=== PATIENT | female | born 1985 | race Caucasian/White ===

== ENCOUNTER 2017-07-01 15:42 | Emergency (ER) | payer OTHER ==
[~2017-07-01 15:42] MED LIST: HYDR200T42 PO; METH2.5 PO
--- NOTE | 2017-07-01 16:44 | PD ---
HPI Chief Complaint Headaches Date Seen: Jul 01, 2017 Travel History International Travel<30 Days: No Contact w/Intl Traveler<30Days: No History of Present Illness HPI Ms. Levy is a 31 y/o at 18 weeks gestation (LMP in February per patient) presenting to the [facility] with the CC of headaches. She reports that she has been having 10/10 intermittent headaches over the last week. Currently she states that the headache is 1/10. She also endorses visual changes with "light corrales and floaters." She also has been more fatigued lately and sleeping "all the time." Finally she endorses shortness of breath increased from her baseline and while at rest since finding out she was .. Patient was recently seen at [facility] in [place] on Thursday morning for back pain and nausea/ vomiting. At that time she had a ultrasound completed showing she was 18 weeks and 1 day . Patient states that she is unaware of her LMP, but believes it could have been in January. She has been previously seen by an DRAINAGE ENGINEER, but has been accepted for Medicaid and has an appointment with [facility] on July 13. Of note the patient has a past medical history significant for lupus and absence seizure disorder, however has not been on medical therapy for over 8 months due to financial constraints. 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 per nursing staff Obstetric History Obstetric History Past Surgical History Surgical History: No Previous Surgery Family History Narrative Family History Endorses no significant family medical history Social History Narrative Social History Tobacco - currently smoking 1 cigarette per day, previously smoking 1 pack per day Alcohol - denies alcohol history Illicit drug use - denies illicit drug use history Allergies-Medications (Allergen,Severity, Reaction): Coded Allergies: Sulfa (Sulfonamide Antibiotics) (Unverified Allergy, Unknown, 05/26/17) Home Meds Reported Medications Hydroxychloroquine Sulfate (Plaquenil) 200 Mg Tab, 200 MG PO DAILY, TAB 05/24/15 Methotrexate (Rheumatrex) 2.5 Mg Tab, 2.5 MG PO EVERY OTHER DAY, TAB 05/24/15 Review of Systems Except as stated in HPI: all other systems reviewed are Neg Physical Exam Narrative GENERAL: Well-nourished, well-developed patient. SKIN: Warm and dry. HEAD: Normocephalic and atraumatic. EYES: No scleral icterus. No injection or drainage. ENT: No nasal drainage noted. Mucous membranes pink. Airway patent. NECK: Supple, trachea midline. No JVD. CARDIOVASCULAR: Regular rate and rhythm without murmurs, gallops, or rubs. RESPIRATORY: Mild wheezing at the bases bilaterally with prolonged expiration. No CR. ABDOMEN/GI: Abdomen soft, non-tender, bowel sounds present, no rebound, no guarding : Cervix: Posterior Dilation: Closed Effacement: 0% Membranes: Intact FHT's: 140s EXTREMITIES: No cyanosis or edema. BACK: Nontender without obvious deformity. No CVA tenderness. NEUROLOGICAL: Awake and alert. Motor and sensory grossly within normal limits. Five out of 5 muscle strength in all muscle groups. Normal speech. Data Data Vital Signs Reviewed: Yes [facility] Medical Record Reviewed: Yes Plan Ms. Levy is a 31 y/o at 18 weeks gestation presenting to the [facility] with the CC of headaches. 1. IUP at 18 weeks -Continue routine antepartum care -Encourage vitamin -Encourage oral hydration -UA dipstick: Negative 2. Headaches with visual disturbances -Prescribe Fioricet to be used as needed. -UDS: Pending Discharge: Patient to be discharged home in stable condition. Patient encouraged to follow up with OBGYN, Rheumatology, and Neurology. Encouraged PO hydration, Fioricet as needed, and rest. Patient agrees with medical plan and all questions where answered. SDW: Dr. Davis Diagnosis Diagnosis: Primary Impression: 18 weeks gestation of Additional Impressions: Headache SLE (systemic lupus erythematosus) Disposition: DISCHARGE HOME Condition: Stable Scripts Arhygsdtth-Hoyctvvmgcurj-Xydkwscz (Fioricet) 50-300-40 Mg Cap 1-2 CAP PO Q6H Y for HEADACHE, #30 CAP 0 Refills Prov: Yaya Grey MD R2 07/01/17 Patient Instructions: Having Your Baby: The Labor Process (GEN), General Instructions Yaya Grey MD R2 Jul 01, 2017 16:44
[2017-07-01] MEDS ORDERED: BUTA1CAP PO (17:40)
[2017-07-01 18:56] LABS: BLOOD, URINE NEG (NEG); COMMENT (UR) CULT NOT INDICATED; CULTURE IF INDICATED CULT NOT INDICATED; GLUCOSE,URINE NEG (NEG); KETONE, URINE NEG (NEG); NITRITE,URINE NEG (NEG); PH, URINE 7.5 (5.0-8.5); SQUAMOUS EPITHELIAL CELL URINE 1 /hpf (0-5); URINE COLOR YELLOW (YELLW/STRAW)
[2017-07-06 08:36] LABS: BATH SALTS (MDPV) UR NEG (NEG); ECSTASY (MDMA) UR NEG (NEG); HEROIN (6-ACETYLMORPHINE) UR NEG (NEG); K2 SPICE UR NEG (NEG); OBMETHADONE UR NEG (NEG); PHENCYCLIDINE URINE NEG (NEG)
[2017-07-06 08:37] LABS: GABAPENTIN UR NEG (NEG); HYDROMORPHONE U NEG (NEG)
[2017-07-13] MEDS ORDERED: PREN1CAP7 PO (14:03)
[2017-07-13] MEDS ORDERED: LEVE250 PO (14:40)
[2017-07-13] MEDS ORDERED: FOLI800T PO (14:42)
[2017-07-28] MEDS ORDERED: AZIT250T3 PO (12:31)
== END 2017-07-01 18:17 | disposition home or self-care (01) ==
LOC: HOBED 15:42
DX: O26.892 Other specified pregnancy related conditions, second trimester (principal); R51 Headache; R06.02 Shortness of breath; O99.332 Smoking (tobacco) complicating pregnancy, second trimester; F17.210 Nicotine dependence, cigarettes, uncomplicated; O99.89 Other specified diseases and conditions complicating pregnancy, childbirth and the puerperium; M32.9 Systemic lupus erythematosus, unspecified; Z3A.18 18 weeks gestation of pregnancy; Z79.899 Other long term (current) drug therapy
CPT/HCPCS: 80307; 81001; 99283; G0481

== ENCOUNTER → 2017-08-12 | Outpatient (CLI) | payer OTHER ==
[~2017-08-12] MED LIST changes: +FOLI800T PO; -HYDR200T42 PO; +LEVE250 PO; -METH2.5 PO; +PREN1CAP7 PO
== END ==
LOC: HPND 10:55
PROVIDERS: ATTEND Obstetrics & Gynecology
DX: O35.2XX0 Maternal care for (suspected) hereditary disease in fetus, not applicable or unspecified (principal); O99.352 Diseases of the nervous system complicating pregnancy, second trimester; O99.332 Smoking (tobacco) complicating pregnancy, second trimester; O99.89 Other specified diseases and conditions complicating pregnancy, childbirth and the puerperium; R56.9 Unspecified convulsions; O09.32 Supervision of pregnancy with insufficient antenatal care, second trimester
CPT/HCPCS: 76811; 76825; 76827; 93325

== ENCOUNTER 2017-08-24 11:49 | Emergency (ER) | payer OTHER ==
[2017-08-24] VITALS (7 sets, daily range): BP systolic 91–137; BP diastolic 54–84; PULSE 82–100; RESP 18–23; TEMP 98.3–98.4; O2SAT 99–100
[~2017-08-24] VITALS: Ht 167.6 cm; Wt 63.0 kg
[2017-08-24] MEDS ORDERED: FOLI400T PO (12:21)
[2017-08-24] MEDS ORDERED: ASPI-516 CHEW (12:22)
[2017-08-24] MEDS ORDERED: FERR325T18 PO (12:22)
[2017-08-24] MEDS ORDERED: SODIUM CHLORIDE 0.9% FLUSH 10 ML FLUSH IVF PRN (13:15)
[2017-08-24 13:58] LABS: AUTOMATED NEUTROPHIL # 7.7 TH/MM3 (1.8-7.7); BASOPHIL # 0.1 TH/MM3 (0-0.2); BASOPHIL % 0.8 % (0.0-2.0); EOSINOPHIL # 0.3 TH/MM3 (0-0.4); EOSINOPHIL % 3.1 % (0.0-4.0); HEMATOCRIT 33.7 % (35.0-46.0); HEMO FLAGS DIFF FINAL; LYMPH % 20.8 % (9.0-44.0); LYMPHOCYTE # 2.3 TH/MM3 (1.0-4.8); MEAN CELL VOLUME 93.4 FL (80.0-100.0); MEAN CORPUSCULAR HEMOGLOBIN 32.1 PG (27.0-34.0); MEAN CORPUSCULAR HGB CONC 34.4 % (32.0-36.0); MONO % 5.7 % (0.0-8.0); NEUT % 69.6 % (16.0-70.0); PLATELET COUNT 239 TH/MM3 (150-450); RED CELL DISTRIBUTION WIDTH 13.4 % (11.6-17.2); WHITE BLOOD COUNT 11.1 TH/MM3 (4.0-11.0)
[2017-08-24 14:13] LABS: BACTERIA, URINE OCC /hpf; BLOOD, URINE NEG (NEG); COMMENT (UR) CULT NOT INDICATED; CULTURE IF INDICATED CULT NOT INDICATED; GLUCOSE,URINE NEG (NEG); KETONE, URINE NEG (NEG); MUCUS URINE FEW /lpf (OCC); NITRITE,URINE NEG (NEG); SQUAMOUS EPITHELIAL CELL URINE 2 /hpf (0-5); URINE COLOR YELLOW (YELLW/STRAW)
--- NOTE | 2017-08-24 14:17 | PD ---
HPI Chief Complaint: Respiratory Symptoms Time Seen by Provider: 13:24 Travel History International Travel<30 days: No Contact w/Intl Traveler<30days: No Traveled to known affect area: No History of Present Illness HPI Patient is a 31 year old female at 27 weeks gestation with PMH of seizure disorder and SLE who presents with 1 month history of cough. She has had associated congestion, post nasal drainage, subjective fevers, chills, night sweats, nausea, vomiting, diarrhea, muscle and joint aches, headache, shortness of breath, and RUQ abdominal pain. She states that her symptoms have progressively worsened. Cough is worse at night and she feels as if she is choking on post nasal drainage. Her bindery worker prescribed a z-pack about 1 week ago which provided no relief. Over the past few days she has noticed right sided sharp, 10/10 non-radiating pain. She has taken Tylenol without relief. Pain worsens with deep breaths, movement, and cough. Patient also notes a cold sore which she tends to get prior to an SLE flair. She denies pain, edema, numbness or tingling in her extremities, neck pain. Patient takes Keppra for seizures. Last SLE flair 7-8months ago. Cholecystectomy at age 22. Modifying Factors: Worse with deep breaths Associated Signs & Symptoms: Coughing, right sided chest pains, shortness of breath, right upper quadrant, pain Risk Factors: Status post cholecystectomy, rheumatoid arthritis, currently PFSH Past Medical History Cardiovascular Problems: Yes (HTN) Diminished Hearing: No Hypertension: Yes Medical other: Yes (LUPUS) Seizures: Yes ?: LMP: JANUARY 2017 : 1 Para: 0 Past Surgical History Cholecystectomy: Yes Social History Alcohol Use: No Tobacco Use: Yes Substance Use: No Allergies-Medications (Allergen,Severity, Reaction): Coded Allergies: Sulfa (Sulfonamide Antibiotics) (Unverified Allergy, Unknown, 08/24/17) Reported Meds & Prescriptions Reported Meds & Active Scripts Active Keppra (Levetiracetam) 250 Mg Tab 250 Mg PO BID Citranatal [place] ( W/O Vit A W/ Fe Fumar) 27-1-260 Mg Cap 1 Cap PO DAILY Reported Aspirin 81 Mg Chew 81 Mg CHEW DAILY Ferrous Sulfate 325 Mg (65 Mg Iron) Tablet 325 Mg PO DAILY Folic Acid 0.4 Mg Tab 3 Mg PO DAILY Review of Systems Except as stated in HPI: all other systems reviewed are Neg Physical Exam Narrative GENERAL: Well-developed, Well-nourished young white female patient currently and moderate distress. Alert. Lying in bed. Cries when discusses length of symptoms SKIN: Warm and dry. HEAD: Atraumatic. Normocephalic. EYES: Pupils equal and round. No scleral icterus. No injection or drainage. ENT: No nasal bleeding or discharge. Mucous membranes pink and moist. Cold sore on right upper lip. NECK: Trachea midline. No JVD. CARDIOVASCULAR: Regular rate and rhythm. RESPIRATORY: No accessory muscle use. Clear to auscultation. Breath sounds equal bilaterally. GASTROINTESTINAL: Patient appears . Abdomen soft, mildly tender to palpation in RUQ. Hepatic and splenic margins not palpable. MUSCULOSKELETAL: Extremities without clubbing, cyanosis, or edema. No obvious deformities. Right side tender to palpation. NEUROLOGICAL: Awake and alert. No obvious cranial nerve deficits. Motor grossly within normal limits. Five out of 5 muscle strength in the arms and legs. Normal speech. PSYCHIATRIC: Appropriate mood and affect; insight and judgment normal. Data Data Last Documented VS Vital Signs Date Time Temp Pulse Resp B/P (MAP) Pulse Ox O2 Delivery O2 Flow Rate FiO2 08/24/17 17:26 98.3 08/24/17 13:55 100 20 100 Room Air Orders Orders Complete Blood Count With Diff (08/24/17 13:08) Comprehensive Metabolic Panel (08/24/17 13:08) Iv Access Insert/Monitor (08/24/17 13:08) Electrocardiogram (08/24/17 13:08) Ecg Monitoring (08/24/17 13:08) Oximetry (08/24/17 13:08) Oxygen Administration (08/24/17 13:08) Sodium Chloride 0.9% Flush (Ns Flush) (08/24/17 13:15) Blood Culture (08/24/17 13:08) Chest, Single Ap (08/24/17 13:24) Urinalysis - C+S If Indicated (08/24/17 13:27) D-Dimer (08/24/17 14:48) Us Leg Venous Doppler Bilat (08/24/17 16:04) Lung Scan - Perfusion (08/24/17 16:04) Diet Regular Basic (08/24/17 Dinner) Ed Discharge Order (08/24/17 18:36) Labs Laboratory Tests Test 08/24/17 13:35 08/24/17 13:40 08/24/17 15:00 White Blood Count 11.1 TH/MM3 Red Blood Count 3.60 MIL/MM3 Hemoglobin 11.6 GM/DL Hematocrit 33.7 % Mean Corpuscular Volume 93.4 FL Mean Corpuscular Hemoglobin 32.1 PG Mean Corpuscular Hemoglobin Concent 34.4 % Red Cell Distribution Width 13.4 % Platelet Count 239 TH/MM3 Mean Platelet Volume 8.5 FL Neutrophils (%) (Auto) 69.6 % Lymphocytes (%) (Auto) 20.8 % Monocytes (%) (Auto) 5.7 % Eosinophils (%) (Auto) 3.1 % Basophils (%) (Auto) 0.8 % Neutrophils # (Auto) 7.7 TH/MM3 Lymphocytes # (Auto) 2.3 TH/MM3 Monocytes # (Auto) 0.6 TH/MM3 Eosinophils # (Auto) 0.3 TH/MM3 Basophils # (Auto) 0.1 TH/MM3 CBC Comment DIFF FINAL Differential Comment Blood Urea Nitrogen 7 MG/DL Creatinine 0.46 MG/DL Random Glucose 81 MG/DL Total Protein 5.8 GM/DL Albumin 2.5 GM/DL Calcium Level 8.0 MG/DL Alkaline Phosphatase 66 U/L Aspartate Amino Transf (AST/SGOT) 14 U/L Alanine Aminotransferase (ALT/SGPT) 19 U/L Total Bilirubin LESS THAN 0.1 MG/DL Sodium Level 137 MEQ/L Potassium Level 3.8 MEQ/L Chloride Level 108 MEQ/L Carbon Dioxide Level 22.4 MEQ/L Anion Gap 7 MEQ/L Estimat Glomerular Filtration Rate 159 ML/MIN Urine Color YELLOW Urine Turbidity HAZY Urine pH 6.0 Urine Specific [place] 1.025 Urine Protein 30 mg/dL Urine Glucose (UA) NEG mg/dL Urine Ketones NEG mg/dL Urine Occult Blood NEG Urine Nitrite NEG Urine Bilirubin NEG Urine Urobilinogen LESS THAN 2.0 MG/DL Urine Leukocyte Esterase TRACE Urine WBC 2 /hpf Urine Squamous Epithelial Cells 2 /hpf Urine Bacteria OCC /hpf Urine Mucus FEW /lpf Microscopic Urinalysis Comment CULT NOT INDICATED D-Dimer Quantitative (PE/DVT) 1.56 MG/L FEU [facility] Medical Decision Making Medical Screen Exam Complete: Yes Emergency Medical Condition: Yes Medical Record Reviewed: Yes Interpretation(s) Laboratory Tests Test 08/24/17 13:35 08/24/17 13:40 08/24/17 15:00 White Blood Count 11.1 TH/MM3 (4.0-11.0) Red Blood Count 3.60 MIL/MM3 (4.00-5.30) Hematocrit 33.7 % (35.0-46.0) Creatinine 0.46 MG/DL (0.50-1.00) Total Protein 5.8 GM/DL (6.4-8.2) Albumin 2.5 GM/DL (3.4-5.0) Calcium Level 8.0 MG/DL (8.5-10.1) Aspartate Amino Transf (AST/SGOT) 14 U/L (15-37) Total Bilirubin LESS THAN 0.1 MG/DL Chloride Level 108 MEQ/L (98-107) Urine Turbidity HAZY (CLEAR) Urine Protein 30 mg/dL (NEG-TRACE) Urine Leukocyte Esterase TRACE (NEG) Urine Bacteria OCC /hpf (NONE) Urine Mucus FEW /lpf (OCC) D-Dimer Quantitative (PE/DVT) 1.56 MG/L FEU (0.00-0.50) Differential Diagnosis Pneumonia versus costochondritis versus PE versus pleurisy versus cholecystitis versus hepatitis versus hellp syndrome versus UTI versus renal colic Narrative Course Lab work did not show significant amount of blood or significant signs of UTI. Patient is not having urinary symptoms. She has had a cholecystectomy since 22 years old, and abdomen is fairly benign, I'm not suspecting that this is a cholecystitis or other acute intra-abdominal process. Her chest x-ray did not show any signs of pneumonia or obvious acute pulmonary processes. Her d-dimer is quite elevated and a VQ scan was done. Her ultrasound was also done to rule out DVT. Ultrasound and VQ scan did not show any signs of acute PE or DVT. At this point, considering his ongoing symptoms, I suspect that she has some underlying pleurisy or costochondritis from all the coughing she has been doing , seems to be worsening at night according to her and her . She states that she is so tired of it that she wants something for the pain other than Tylenol. My plan would be to give her symptomatically for pain with codeine, have warned her that this is class C, not necessarily the best thing to be taking during . 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 Return for any worsening in pain or new symptoms as needed. The plan has discussed with her and she states understanding. Diagnosis Primary Impression: Right-sided chest wall pain Additional Impression: Additional Instructions: You should not take Tylenol with Codeine with regular Tylenol. Follow-up with your OB for further treatment. Med/Other Pt SpecificInfo: Prescription(s) given Scripts Acetaminophen-Codeine Liq (Tylenol-Codeine Elixir) 120-12 Mg/5 Ml Soln 5 ML PO Q6H Y for PAIN, #60 ML 0 Refills Prov: Eunice Sarmiento MD 08/24/17 Disposition: 01 DISCHARGE HOME Condition: Stable Eunice Sarmiento MD Aug 24, 2017 14:17
[2017-08-24 14:28] LABS: ALKALINE PHOSPHATASE 66 U/L (45-117); ALT (GPT) 19 U/L (10-53); AST (GOT) 14 U/L (15-37); BLOOD UREA NITROGEN 7 MG/DL (7-18); GLOMERULAR FILTRATION RATE 159 ML/MIN (>89); TOTAL BILIRUBIN ADULT LESS THAN 0.1 MG/DL (0.2-1.0)
[2017-08-24 14:29] LABS: ANION GAP 7 MEQ/L (5-15); BICARBONATE 22.4 MEQ/L (21.0-32.0); CHLORIDE 108 MEQ/L (98-107); POTASSIUM 3.8 MEQ/L (3.5-5.1); SODIUM (NA) 137 MEQ/L (136-145)
--- NOTE | 2017-08-24 14:48 | RADRPT ---
EXAM DATE/TIME: 08/24/2017 14:21 [facility] COMPARISON: No previous studies available for comparison. INDICATIONS : Cough, pain under right anterior ribs, short of breath MEDICAL HISTORY : . pleural effusion SURGICAL HISTORY : None. ENCOUNTER: Initial ACUITY: 2 weeks PAIN SCORE: 8/10 LOCATION: Bilateral chest FINDINGS: A single view of the chest demonstrates the lungs to be symmetrically aerated without evidence of mas s, infiltrate or effusion. The cardiomediastinal contours are unremarkable. Osseous structures are intact. CONCLUSION: Normal examination. Jarad Escobedo Jr., MD on August 24, 2017 at 14:46 Board Certified Radiologist. This report was verified electronically.
--- NOTE | 2017-08-24 16:38 | RADRPT ---
EXAM DATE/TIME: 08/24/2017 16:14 [facility] COMPARISON: No previous studies available for comparison. INDICATIONS : Bilateral leg swelling. MEDICAL HISTORY : Seizures. Hypertension. Glasses. Lupus. SURGICAL HISTORY : Cholecystectomy. ENCOUNTER: Initial ACUITY: 2 months PAIN SCORE: 5/10 LOCATION: Bilateral legs. TECHNIQUE: Venous ultrasound of the left and right leg was performed from the inguinal ligament to the proximal calf. Real-time, color Doppler and spectral tracing, compression and augmentation techniques were us ed. FINDINGS: RIGHT LEG: There is normal compressibility of the deep venous system from the inguinal region to the proximal ca lf. No echogenic clot is seen in the lumen of the common femoral, femoral, popliteal, and posterior tibial veins. There is a normal response of the venous system to proximal and distal augmentation an d respiration. LEFT LEG: There is normal compressibility of the deep venous system from the inguinal region to the proximal ca lf. No echogenic clot is seen in the lumen of the common femoral, femoral, popliteal, and posterior tibial veins. There is a normal response of the venous system to proximal and distal augmentation an d respiration. CONCLUSION: Negative for deep venous thrombosis. Ronnie Foley MD FACR on August 24, 2017 at 16:37 Board Certified Radiologist. This report was verified electronically.
--- NOTE | 2017-08-24 18:18 | RADRPT ---
EXAM DATE/TIME: 08/24/2017 16:22 [facility] COMPARISON: CHEST SINGLE AP, August 24, 2017, 14:21. INDICATIONS : Chest pain and dyspnea. 28 weeks . DOSE: 1.0 mCi Tc99m Labeled MAA IV MEDICAL HISTORY : Lupus. Hypertension. SURGICAL HISTORY : Cholecystectomy. ENCOUNTER: Initial ACUITY: 1 day PAIN SCALE: 4/10 LOCATION: Right chest TECHNIQUE: The patient was injected with MAA, and eight-view perfusion scan was performed. FINDINGS: PERFUSION: There is a subsegmental perfusion defect seen at the posterior medial left base. The remaining aspect s of the lungs demonstrate normal perfusion. CONCLUSION: Small subsegmental perfusion defect at the left base. This is a low probability for pulmonary embolus . Faisal Champion MD on August 24, 2017 at 18:11 Board Certified Radiologist. This report was verified electronically.
[2017-08-24] MEDS ORDERED: ACET120S PO (18:44)
--- NOTE | 2017-08-24 20:48 | PD ---
HPI Chief Complaint Shortness of breath, cold sores,malaise Date Seen: Aug 24, 2017 Time Seen: 20:43 Travel History International Travel<30 Days: No Contact w/Intl Traveler<30Days: No Known Affected Area: No History of Present Illness HPI Patient is 31-year-old white female 25 weeks 6 days who presented to the ER with shortness of breath, sores in her mouth history of lupus and the fear that she's having lupus flare, they did an extensive workup ruled out pulmonary embolus DVT and pneumonia all her lab work was normal and I felt it was costochondritis from coughing so much she was given a prescription for Tylenol with Codeine elixir that she would like to have another antibiotic just took a Z -Faizan 3 weeks ago didn't help, heart rate is reactive she's not gutierrez Weeks Gestation: 25 Para: 0 : 1 History Past Medical History Narrative Medical Lupus Social History Alcohol Use: No Tobacco Use: No Substance Abuse: No Allergies-Medications (Allergen,Severity, Reaction): Coded Allergies: Sulfa (Sulfonamide Antibiotics) (Unverified Allergy, Unknown, 08/24/17) Home Meds Active Scripts Acetaminophen-Codeine Liq (Tylenol-Codeine Elixir) 120-12 Mg/5 Ml Soln, 5 ML PO Q6H Y for PAIN, #60 ML 0 Refills Prov:Eunice Sarmiento MD 08/24/17 Levetiracetam (Keppra) 250 Mg Tab, 250 MG PO BID for Control Seizures, #60 TAB 2 Refills Prov:Loc Izaguirre MD 07/13/17 W/O Vit A W/ Fe Fumar (Citranatal [place]) 27-1-260 Mg Cap, 1 CAP PO DAILY for Nutritional Supplement, #30 CAP 10 Refills Prov:Felicity Jhaveri 07/13/17 Reported Medications Aspirin (Aspirin) 81 Mg Chew, 81 MG CHEW DAILY, TAB 0 Refills 08/24/17 Ferrous Sulfate (Ferrous Sulfate) 325 Mg (65 Mg Iron) Tablet, 325 MG PO DAILY for Nutritional Supplement, #30 TAB 0 Refills 08/24/17 Folic Acid (Folic Acid) 0.4 Mg Tab, 3 MG PO DAILY for Nutritional Supplement, TAB 0 Refills 08/24/17 Review of Systems General / Constitutional: No: Fever, Weight Gain, Chills, Other Eyes: No: Diploplia, Blurred Vision, Visual changes, Pain, Photophobia HENT: No: Headaches, Vertigo, Lightheadedness Cardiovascular: Chest Pain or Discomfort, No: Irregular Rhythm, Palpitations, Tachycardia, Syncope, Varicosities, Edema, Cyanosis Respiratory: No: Cough, Short of Breath, Other Gastrointestinal: No: Nausea, Vomiting, Diarrhea Genitourinary: No: Decreased Urinary Output, Oliguria Musculoskeletal: No: Limited ROM, Weakness, Cramping, Edema, Pain Skin: No Rash, No Itching, No Dryness, No Lumps, No Change in Pigmentation, No Change in Nails, No Alopecia, No Lesions Neurologic: No: Weakness, Dizziness, Syncope, Focal Abnormalities, Coordination Problem, Headache, Slurred Speech, Seizures Psychiatric: No: Depression, Suicidal Ideations, Homicidal Ideation Endocrine: No: Heat Intolerance, Cold Intolerance, Polydipsia, Polyuria, Other Physical Exam Vital Signs Date Time Temp Pulse Resp B/P (MAP) Pulse Ox O2 Delivery O2 Flow Rate FiO2 08/24/17 18:41 85 18 137/84 (101) 100 Room Air 08/24/17 17:26 98.3 08/24/17 16:00 82 20 91/54 (66) 99 Room Air 08/24/17 15:00 88 23 116/67 (83) 99 Room Air 08/24/17 13:55 100 20 119/76 (90) 100 Room Air 08/24/17 13:44 99 Room Air 08/24/17 12:01 98.4 93 18 134/75 (94) 99 Narrative GENERAL: Well-nourished, well-developed patient. SKIN: Warm and dry. HEAD: Normocephalic and atraumatic. EYES: No scleral icterus. No injection or drainage. ENT: No nasal drainage noted. Mucous membranes pink. Airway patent. NECK: Supple, trachea midline. No JVD. CARDIOVASCULAR: Regular rate and rhythm without murmurs, gallops, or rubs. RESPIRATORY: Breath sounds equal bilaterally. No accessory muscle use. BREASTS: Bilateral exam showed no masses , no retractions, no nipple discharge. ABDOMEN/GI: Abdomen soft, non-tender, bowel sounds present, no rebound, no guarding Gravid to [25-] weeks size Fundal Height: [-25] GENITOURINARY: External Genitalia: intact and normal in appearance Membranes: [intact ] Uterine Contractions: [none-] FHT's: Category: [1-] Baseline: [-133] Reactive: [-yes] Variability: [mod-] Decels: [0-] EXTREMITIES: No cyanosis or edema. BACK: Nontender without obvious deformity. No CVA tenderness. NEUROLOGICAL: Awake and alert. Motor and sensory grossly within normal limits. Five out of 5 muscle strength in all muscle groups. Normal speech. Data Data Orders Orders Complete Blood Count With Diff (08/24/17 13:08) Comprehensive Metabolic Panel (08/24/17 13:08) Iv Access Insert/Monitor (08/24/17 13:08) Electrocardiogram (08/24/17 13:08) Ecg Monitoring (08/24/17 13:08) Oximetry (08/24/17 13:08) Oxygen Administration (08/24/17 13:08) Sodium Chloride 0.9% Flush (Ns Flush) (08/24/17 13:15) Blood Culture (08/24/17 13:08) Chest, Single Ap (08/24/17 13:24) Urinalysis - C+S If Indicated (08/24/17 13:27) D-Dimer (08/24/17 14:48) Us Leg Venous Doppler Bilat (08/24/17 16:04) Lung Scan - Perfusion (08/24/17 16:04) Diet Regular Basic (08/24/17 Dinner) Ed Discharge Order (08/24/17 18:36) Labs Laboratory Tests Test 08/24/17 13:35 08/24/17 13:40 08/24/17 15:00 White Blood Count 11.1 Red Blood Count 3.60 Hemoglobin 11.6 Hematocrit 33.7 Mean Corpuscular Volume 93.4 Mean Corpuscular Hemoglobin 32.1 Mean Corpuscular Hemoglobin Concent 34.4 Red Cell Distribution Width 13.4 Platelet Count 239 Mean Platelet Volume 8.5 Neutrophils (%) (Auto) 69.6 Lymphocytes (%) (Auto) 20.8 Monocytes (%) (Auto) 5.7 Eosinophils (%) (Auto) 3.1 Basophils (%) (Auto) 0.8 Neutrophils # (Auto) 7.7 Lymphocytes # (Auto) 2.3 Monocytes # (Auto) 0.6 Eosinophils # (Auto) 0.3 Basophils # (Auto) 0.1 CBC Comment DIFF FINAL Differential Comment Blood Urea Nitrogen 7 Creatinine 0.46 Random Glucose 81 Total Protein 5.8 Albumin 2.5 Calcium Level 8.0 Alkaline Phosphatase 66 Aspartate Amino Transf (AST/SGOT) 14 Alanine Aminotransferase (ALT/SGPT) 19 Total Bilirubin LESS THAN 0.1 Sodium Level 137 Potassium Level 3.8 Chloride Level 108 Carbon Dioxide Level 22.4 Anion Gap 7 Estimat Glomerular Filtration Rate 159 Urine Color YELLOW Urine Turbidity HAZY Urine pH 6.0 Urine Specific [place] 1.025 Urine Protein 30 Urine Glucose (UA) NEG Urine Ketones NEG Urine Occult Blood NEG Urine Nitrite NEG Urine Bilirubin NEG Urine Urobilinogen LESS THAN 2.0 Urine Leukocyte Esterase TRACE Urine WBC 2 Urine Squamous Epithelial Cells 2 Urine Bacteria OCC Urine Mucus FEW Microscopic Urinalysis Comment CULT NOT INDICATED D-Dimer Quantitative (PE/DVT) 1.56 Date/Time Source Procedure Growth Status 08/24/17 13:35 Blood Peripheral Aerobic Blood Culture Pending Received 08/24/17 13:35 Blood Peripheral Anaerobic Blood Culture Pending Received MDM Interpretation(s) Patient is a 31-year-old white female at 25-26 weeks who presented with shortness of breath or chest pain discomforts. Workup in ER negative for PE and DVT the negative VQ scan with COSTOCHONDRITIS coughing so much she was given Tylenol with codeine prescription Plan Plan the patient a prescription for ampicillin 500 4 times a day Diagnosis Diagnosis: Primary Impression: Right-sided chest wall pain Additional Impression: Disposition: 01 DISCHARGE HOME Condition: Stable Scripts Acetaminophen-Codeine Liq (Tylenol-Codeine Elixir) 120-12 Mg/5 Ml Soln 5 ML PO Q6H Y for PAIN, #60 ML 0 Refills Prov: Eunice Sarmiento MD 08/24/17 Patient Instructions: General Instructions, (ED), Chest Wall Pain (ED ) Additional Instructions: You should not take Tylenol with Codeine with regular Tylenol. Follow-up with your OB for further treatment. Departure Forms: Tests/Procedures Karl Davis II, MD Aug 24, 2017 20:48
--- NOTE | 2017-08-25 14:30 | EKG ---
Date Performed: 08/24/2017 Time Performed: 13:35:23 PTAGE: 31 years EKG: Sinus rhythm POSSIBLE LEFT ATRIAL ENLARGEMENT BORDERLINE ECG NO PREVIOUS TRACING DOCTOR: Maxwell Prater Interpretating Date/Time 08/25/2017 14:23:12
[2017-08-31] MEDS ORDERED: DOXY10TA PO (15:55)
== END 2017-08-24 21:00 | disposition home or self-care (01) ==
LOC: NEPC 11:49 → HOBED 21:00
DX: O99.89 Other specified diseases and conditions complicating pregnancy, childbirth and the puerperium (principal); R06.02 Shortness of breath; R07.89 Other chest pain; R94.31 Abnormal electrocardiogram [ECG] [EKG]; Z3A.26 26 weeks gestation of pregnancy
CPT/HCPCS: 71010; 78580; 80053; 81001; 85025; 85379; 87040; 93005; 93970; 99284; A9540

== ENCOUNTER 2017-11-08 22:55 | Emergency (ER) | payer OTHER ==
[~2017-11-08] VITALS: Ht 167.6 cm; Wt 62.0 kg
[~2017-11-08 22:55] MED LIST changes: +ACET120S PO; +ASPI-516 CHEW; +CALCCHW3 CHEW; +DOXY10TA PO; +FERR325T18 PO; +FOLI400T PO; -FOLI800T PO; +PROM25TA10 PO
[2017-11-08 22:59] VITALS: BP 176/126; PULSE 132; RESP 16; TEMP 98.3; O2SAT 98
== END 2017-11-08 23:58 | disposition left against medical advice (07) ==
LOC: NED 22:55
DX: R05 Cough (principal)
CPT/HCPCS: 99281

== ENCOUNTER 2017-11-10 04:52 | Inpatient (IN) | payer OTHER ==
[~2017-11-10] VITALS: Ht 167.6 cm; Wt 65.0 kg
[2017-11-10] VITALS (18 sets, daily range): BP systolic 111–137; BP diastolic 69–89; PULSE 78–122; RESP 8–18; TEMP 97.9–98; O2SAT 98–100
--- NOTE | 2017-11-10 06:36 | PD ---
HPI Chief Complaint: Respiratory Symptoms Time Seen by Provider: 05:28 Travel History International Travel<30 days: No Contact w/Intl Traveler<30days: No Traveled to known affect area: No History of Present Illness HPI The patient is a 31 year old female at 34 weeks gestation who presents to the [facility] [address] emergency department with a history of recurrent cough and congestion with shortness of breath that began a week ago. She reports that she had similar symptoms in August and was evaluated in the emergency department for a possible pulmonary embolism. In the end, she reports that she was treated with ampicillin for bronchitis. The patient reports that she was given a refill of this just in case she had a recurrent cough. When she developed a recurrent cough approximately a week ago she took the ampicillin as prescribed, however it has not helped this time. She was seen at [facility] on Thursday and was told that she had lung congestion and should go to the emergency department. The patient's medical history is significant for having systemic lupus erythematosus. The patient reports that she has been barring a friend's inhaler which has been helping somewhat shortness of breath. She reports that her research anthropologist is Dr. Gabriel. She reports that she has been feeling the baby move well. She denies having any abdominal pain. She has had problems with persistent nausea during the , however no recent vomiting. She last had a fever with a MAXIMUM TEMPERATURE of 100.1 yesterday. She reports that she is currently out of her Phenergan for nausea and is requesting a refill. She denies having any vaginal bleeding. The patient reports that her cough is productive of thick brown sputum. The patient reports that she smokes 3-4 cigarettes per day. I review of systems otherwise, the patient denies having any neck pain, diarrhea, urinary symptoms, or neurologic symptoms. The patient describes her chest pain as being on the sides of her chest and worse with coughing. [facility] Past Medical History Narrative Medical The patient's past medical history is significant for systemic lupus, Raynaud's syndrome, seizure disorder, cervical dysplasia. Cardiovascular Problems: Yes (HTN) Diminished Hearing: No Hypertension: Yes Immune Disorder: Yes (LUPUS) Immunizations Current: Yes Seizures: Yes Tetanus Vaccination: < 5 Years Influenza Vaccination: No ?: : 1 Para: 0 Past Surgical History Narrative Surgical The patient's past surgical history is significant for cholecystectomy. Cholecystectomy: Yes Social History Alcohol Use: No Tobacco Use: Yes (1-4 CIGS DAILY) Substance Use: No Allergies-Medications (Allergen,Severity, Reaction): Coded Allergies: Sulfa (Sulfonamide Antibiotics) (Unverified Allergy, Unknown, 11/10/17) Reported Meds & Prescriptions Reported Meds & Active Scripts Active Keppra (Levetiracetam) 250 Mg Tab 250 Mg PO BID Citranatal [place] ( W/O Vit A W/ Fe Fumar) 27-1-260 Mg Cap 1 Cap PO DAILY Reported Aspirin 81 Mg Chew 81 Mg CHEW DAILY Ferrous Sulfate 325 Mg (65 Mg Iron) Tablet 325 Mg PO DAILY Folic Acid 0.4 Mg Tab 3 Mg PO DAILY albuterol rescue inhaler borrowed from a friend Review of Systems Except as stated in HPI: all other systems reviewed are Neg General / Constitutional: No: Fever Eyes: No: Visual changes HENT: No: Headaches Cardiovascular: Positive: Chest Pain or Discomfort, Dyspnea on exertion Respiratory: Positive: Cough, Shortness of Breath, Wheezing Gastrointestinal: Positive: Nausea, No: Vomiting, Abdominal Pain Genitourinary: No: Dysuria Musculoskeletal: No: Pain Skin: No Rash Neurologic: No: Weakness Psychiatric: No: Depression Endocrine: No: Polydipsia Hematologic/Lymphatic: No: Easy Bruising Physical Exam Narrative General: The patient is a well-developed well-nourished. Head and Neck exam: Head is normocephalic atraumatic. Eyes: EOMI, pupils are equal round and reactive to light. Nose: Midline septum with pink mucous membranes Mouth: Dentition unremarkable. Moist mucus membranes. Posterior oropharynx is not erythematous. No tonsillar hypertrophy. Uvula midline. Airway patent. Neck: No palpable lymphadenopathy. No nuchal rigidity. No thyromegaly. Cardiovascular: Sinus tachycardia in the low 100 without murmurs, gallops, or rubs. No pulse deficit to the extremities on simultaneous auscultation and palpation of her radial artery. Lungs: Soft expiratory wheezes audible throughout bilateral lung mccoy, no rhonchi, scattered course airway breath sounds are noted. No crackles. Abdomen: Soft, with distention related to . No tenderness on palpation of her abdomen. The fundus is well above the umbilicus. No palpable contractions. No guarding, rebound, or rigidity. Normal bowel sounds are audible. Extremities: No clubbing, cyanosis, or edema. 2+ pulses in all 4 extremities. No calf tenderness on palpation. Negative Homans sign. No palpable cords. Back: No costovertebral angle tenderness to palpation. Neurologic Exam: Grossly nonfocal. Skin Exam: No rash noted. Intact skin that is warm and dry. Data Data Last Documented VS Vital Signs Date Time Temp Pulse Resp B/P (MAP) Pulse Ox O2 Delivery O2 Flow Rate FiO2 11/10/17 07:19 (101) 98 Room Air 11/10/17 07:19 89 18 11/10/17 04:56 98.0 Orders Orders Complete Blood Count With Diff (11/10/17 06:36) Comprehensive Metabolic Panel (11/10/17 06:36) Blood Culture (11/10/17 06:36) C-Reactive Protein (Crp) (11/10/17 06:36) Urinalysis - C+S If Indicated (11/10/17 06:36) Chest, Single Ap (11/10/17 06:36) Iv Access Insert/Monitor (11/10/17 06:36) Ecg Monitoring (11/10/17 06:36) Oximetry (11/10/17 06:36) Lactic Acid Sepsis Protocol (11/10/17 06:36) Influenzae A/B Antigen (11/10/17 06:38) Ceftriaxone Inj (Rocephin Inj) (11/10/17 07:30) Azithromycin Inj (Zithromax Inj) (11/10/17 07:30) Albuterol-Ipratropium Neb (Duoneb Neb) (11/10/17 07:30) Sodium Chlor 0.9% 1000 Ml Inj (Ns 1000 M (11/10/17 07:30) MDM Medical Decision Making Medical Screen Exam Complete: Yes Emergency Medical Condition: Yes Medical Record Reviewed: Yes Interpretation(s) Last Impressions Chest X-Ray 11/10/1736 Signed Impressions: Service Date/Time: Friday, November 10, 2017 06:44 - CONCLUSION: Right medial lung base opacity as above. Lungs otherwise clear. Faisal Gallo MD Differential Diagnosis Pneumonia, versus bronchitis, versus reactive airway Narrative Course During the course of the patients emergency department visit, the patients history, examination, and differential diagnosis were reviewed with the patient. The patient was placed on a teletypesetter monitor with oximetry and frequent blood pressure monitoring. The patient had IV access obtained and blood work sent for analysis. The patient's electronic medical record was reviewed. The patient did have a VQ scan and ultrasound of her lower extremities done previously when she had similar symptoms to rule out PE and DVT. These were found to be negative for PE and DVT. The patient's symptoms at this time are consistent with bronchitis versus pneumonia. She did agree to have a chest x- ray done with shielding of the . The patient was initially provided Rocephin 1 g IV, Zithromax 500 IV, DuoNeb times once, normal saline 1 L IV fluid bolus. The patients laboratory studies were reviewed and remarkable for a chest x-ray that shows a right medial lung base opacity, lungs are otherwise clear. CBC, CMP, blood cultures, lactic acid are pending at the conclusion of my shift. The patient's case will be checked out to the oncoming emergency physician to disposition the patient based on the conclusion of her workup. Diagnosis Primary Impression: Pneumonia affecting Qualified Codes: O99.513 - Diseases of the respiratory system complicating , third trimester; J18.9 - Pneumonia, unspecified organism Guerline De Paz MD Nov 10, 2017 06:36
--- NOTE | 2017-11-10 07:10 | RADRPT ---
EXAM DATE/TIME: 11/10/2017 06:44 [place] COMPARISON: CHEST SINGLE AP, August 24, 2017, 14:21. INDICATIONS : Cough and congestion. MEDICAL HISTORY : None. SURGICAL HISTORY : None. ENCOUNTER: Initial ACUITY: 1 day PAIN SCORE: 0/10 LOCATION: Bilateral chest FINDINGS: There is opacity adjacent to the right heart border that is most likely a prominent cardiophrenic fat pad. Right middle lobe consolidation entirely excludable in the proper clinical setting. No pleural effusion demonstrated. No pneumothorax. Heart size within normal limits. CONCLUSION: Right medial lung base opacity as above. Lungs otherwise clear. Faisal Gallo MD on November 10, 2017 at 7:06 Board Certified Radiologist. This report was verified electronically.
[2017-11-10] MEDS ORDERED: cefTRIAXone INJ 1,000 MG in SODIUM CHLORIDE 0.9% INJ 100 ML IV ONE (07:30)
[2017-11-10] MEDS ORDERED: RESP: ALBUTEROL 2.5 MG/IPRATROPIUM 0.5 MG NEB (SCH) NEB ONE (07:30)
[2017-11-10] MEDS ORDERED: SODIUM CHLOR 0.9% 1000 ML INJ 1,000 ML IV ONE (07:30)
[2017-11-10] MEDS ORDERED: AZITHROMYCIN INJ 500 MG in SODIUM CHLOR 0.9% 250 ML INJ 250 ML IV ONE (07:30)
[2017-11-10 07:36] LABS: AUTOMATED NEUTROPHIL # 6.1 TH/MM3 (1.8-7.7); BASOPHIL # 0.1 TH/MM3 (0-0.2); BASOPHIL % 0.5 % (0.0-2.0); EOSINOPHIL # 0.1 TH/MM3 (0-0.4); EOSINOPHIL % 1.2 % (0.0-4.0); HEMATOCRIT 32.5 % (35.0-46.0); HEMOGLOBIN 11.5 GM/DL (11.6-15.3); LYMPH % 29.1 % (9.0-44.0); LYMPHOCYTE # 2.9 TH/MM3 (1.0-4.8); MEAN CELL VOLUME 88.1 FL (80.0-100.0); MEAN CORPUSCULAR HEMOGLOBIN 31.2 PG (27.0-34.0); MEAN CORPUSCULAR HGB CONC 35.4 % (32.0-36.0); MEAN PLATELET VOLUME 7.7 FL (7.0-11.0); MONO % 8.1 % (0.0-8.0); MONOCYTE # 0.8 TH/MM3 (0-0.9); NEUT % 61.1 % (16.0-70.0); PLATELET COUNT 277 TH/MM3 (150-450); RED BLOOD COUNT 3.69 MIL/MM3 (4.00-5.30); RED CELL DISTRIBUTION WIDTH 13.2 % (11.6-17.2)
[2017-11-10 07:46] LABS: BACTERIA, URINE FEW /hpf; BILIRUBIN, URINE NEG (NEG); BLOOD, URINE NEG (NEG); GLUCOSE,URINE NEG (NEG); KETONE, URINE TRACE mg/dL (NEG); MUCUS URINE MANY /lpf (OCC); NITRITE,URINE NEG (NEG); PH, URINE 5.5 (5.0-8.5); SQUAMOUS EPITHELIAL CELL URINE 4 /hpf (0-5); URINE COLOR YELLOW (YELLW/STRAW); URINE LEUKOCYTE ESTERASE SMALL (NEG)
[2017-11-10 07:49] LABS: ALBUMIN 2.5 GM/DL (3.4-5.0); BICARBONATE 22.1 MEQ/L (21.0-32.0); BLOOD UREA NITROGEN 8 MG/DL (7-18); CALCIUM 8.4 MG/DL (8.5-10.1); CHLORIDE 107 MEQ/L (98-107); CREATININE 0.59 MG/DL (0.50-1.00); GLOMERULAR FILTRATION RATE 120 ML/MIN (>89); GLUCOSE,RANDOM 88 MG/DL (74-106); SODIUM (NA) 136 MEQ/L (136-145)
[2017-11-10 07:51] LABS: ALT (GPT) 11 U/L (10-53); AST (GOT) 14 U/L (15-37); C-REACTIVE PROTEIN 0.41 MG/DL (0.00-0.30)
[2017-11-10 07:54] LABS: ALKALINE PHOSPHATASE 181 U/L (45-117); TOTAL BILIRUBIN ADULT 0.2 MG/DL (0.2-1.0); TOTAL PROTEIN 6.5 GM/DL (6.4-8.2)
--- NOTE | 2017-11-10 12:38 | HHI.HP ---
HPI Date Seen: Nov 10, 2017 Time Seen: 12:00 (Alicia Velásquez MD R1) Travel History International Travel<30 Days: No Contact w/Intl Traveler<30Days: No Known Affected Area: No (Alicia Velásquez MD R1) History of Present Illness HPI Ms. Levy is a 31-year-old white female with a past medical history of lupus presenting with cough and fever. She states that she's been feeling bad for 1.5 weeks. She has had a cough productive of yellowish-green sputum and is sometimes blood tinged. She states that when she coughs her ribs hurt and also across her chest. She also has pain with deep breathing. She had a maximum temperature yesterday of 101F. Temperature overnight was 100 F. She also has had trouble breathing and states that she feels wheezy. Of note, in August she was diagnosed with pneumonia and was placed on ampicillin 500 mg 4 times a day and codeine for pain. During this time period she was also thought to have a PE due to her symptoms and elevated d-dimer. This was ruled out per the pt. The ampicillin was refilled a week ago, but after taking the course of antibiotics she feels worse. Obstetrically: no leakage of fluids, no vaginal bleeding, no contractions, is feeling baby move Weeks Gestation: 37 Para: 0 : 1 (Alicia Velásquez MD R1) History Past Medical History Narrative Medical Lupus (not on meds due to , was previously on methotrexate and Plaquenil) Raynaud's phenomenon Rheumatoid arthritis Seizure disorder (on Keppra 250mg BID) (Alicia Velásquez MD R1) Obstetric History Obstetric History LMP in [place] 11/26/2017 determined by ultrasound No hx of STDs (Alicia Velásquez MD R1) Past Surgical History Narrative Surgical cholecystectomy (Alicia Velásquez MD R1) Family History Narrative Family History Mother- at 46 of CAD, [place] Father- [place], CAD (Alicia Velásquez MD R1) Social History Narrative Social History 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 Lives with her boyfriend at his uncle's house with his mother Smokes 1-4 cigarettes every other day, now vaping to decrease cigarette use No alcohol use No illicit drug use (Alicia Velásquez MD R1) Allergies-Medications (Allergen,Severity, Reaction): Coded Allergies: Sulfa (Sulfonamide Antibiotics) (Unverified Allergy, Unknown, 11/10/17) Home Meds Active Scripts Promethazine (Phenergan) 25 Mg Tablet, 25 MG PO Q6H Y for NAUSEA OR VOMITING, # 30 TAB 0 Refills Prov:Topher Adan MD 11/11/17 Azithromycin (Azithromycin) 250 Mg Tab, 250 MG PO DAILY for Infection, #10 TAB 0 Refills Prov:Topher Adan MD 11/11/17 Amoxicillin (Amoxicillin) 875 Mg Tab, 875 MG PO BID for Infection, #20 TAB 0 Refills Prov:Topher Adan MD 11/11/17 Levetiracetam (Keppra) 250 Mg Tab, 250 MG PO BID for Control Seizures, #60 TAB 2 Refills Prov:Loc Izaguirre MD 07/13/17 W/O Vit A W/ Fe Fumar (Citranatal [place]) 27-1-260 Mg Cap, 1 CAP PO DAILY for Nutritional Supplement, #30 CAP 10 Refills Prov:Felicity Jhaveri [facility] 07/13/17 Reported Medications Aspirin (Aspirin) 81 Mg Chew, 81 MG CHEW DAILY, TAB 0 Refills 08/24/17 Ferrous Sulfate (Ferrous Sulfate) 325 Mg (65 Mg Iron) Tablet, 325 MG PO DAILY for Nutritional Supplement, #30 TAB 0 Refills 08/24/17 Folic Acid (Folic Acid) 0.4 Mg Tab, 3 MG PO DAILY for Nutritional Supplement, TAB 0 Refills 08/24/17 Discontinued Scripts Calcium Carbonate (Calci-Chew) 1,250 Mg Chew, 1250 MG CHEW DAILY for 30 Days, # 30 TAB 1 Refill 1,250 mg calcium carbonate (500 mg elemental calcium) Prov:Talia Cleveland CNM [facility] 09/29/17 Promethazine (Phenergan) 25 Mg Tablet, 25 MG PO Q6H Y for NAUSEA OR VOMITING for 10 Days, #40 TAB 0 Refills Prov:Talia Cleveland CNM [facility] 09/29/17 Doxylamine-Pyridoxine (Diclegis) 10-10 Mg Tab, 10 CAP PO Q4HR for nausea for 30 Days, #60 CAP Prov:Loc Izaguirre MD 08/31/17 Acetaminophen-Codeine Liq (Tylenol-Codeine Elixir) 120-12 Mg/5 Ml Soln, 5 ML PO Q6H Y for PAIN, #60 ML 0 Refills Prov:Eunice Sarmiento MD 08/24/17 Review of Systems General / Constitutional: Fever, Chills, Other (fatigue) Eyes: No: Visual changes Cardiovascular: Chest Pain or Discomfort Respiratory: Cough, Short of Breath, Wheezing Gastrointestinal: No: Nausea, Vomiting Genitourinary: No: Dysuria Skin: No Rash (Alicia Velásquez MD R1) Physical Exam Vital Signs Date Time Temp Pulse Resp B/P (MAP) Pulse Ox O2 Delivery O2 Flow Rate FiO2 11/10/17 10:45 11/10/17 07:19 (101) 98 Room Air 11/10/17 07:19 89 18 137/89 (105) 98 Room Air 11/10/17 04:56 98.0 122 18 134/85 (101) 100 Room Air Narrative GENERAL: Well-nourished, well-developed patient sitting in bed, in no acute distress. SKIN: Warm and dry. HEAD: Normocephalic and atraumatic. EYES: No scleral icterus. No injection or drainage. ENT: No nasal drainage noted. Mucous membranes pink. Airway patent. NECK: Supple, trachea midline. No JVD. CARDIOVASCULAR: Regular rate and rhythm without murmurs, gallops, or rubs. RESPIRATORY: Coarse breath sounds, but equal bilaterally. Diffuse expiratory wheezes. No accessory muscle use. BREASTS: Bilateral exam showed no masses , no retractions, no nipple discharge. ABDOMEN/GI: Abdomen soft, non-tender, bowel sounds present, no rebound, no guarding Gravid to 37 weeks size FHT's: Category: 1 Baseline: 120s Reactive: yes Variability: moderate Decels: none EXTREMITIES: No cyanosis or edema. BACK: Nontender without obvious deformity. No CVA tenderness. NEUROLOGICAL: Awake and alert. Motor and sensory grossly within normal limits. Five out of 5 muscle strength in all muscle groups. Normal speech. (Alicia Velásquez MD R1) Caprini VTE Risk Assessment Caprini VTE Risk Assessment: Mod/High Risk (score >= 2) Caprini Risk Assessment Model Point Value = 1 Point Value = 2 Point Value = 3 Point Value = 5 Age 41-60 Minor surgery BMI > 25 kg/m2 Swollen legs Varicose veins or History of unexplained or recurrent spontaneous Oral contraceptives or hormone replacement Sepsis (< 1 month) Serious lung disease, including pneumonia (< 1 month) Abnormal pulmonary function Acute myocardial infarction Congestive heart failure (< 1 month) History of inflammatory bowel disease Medical patient at bed rest Age 61-74 Arthroscopic surgery Major open surgery (> 45 min) Laparoscopic surgery (> 45 min) Malignancy Confined to bed (> 72 hours) Immobilizing plaster cast Central venous access Age >= 75 History of VTE Family history of VTE Factor V Leiden Prothrombin [id number] Lupus anticoagulant Anticardiolipin antibodies Elevated serum homocysteine Heparin-induced thrombocytopenia Other congenital or acquired thrombophilia Stroke (< 1 month) Elective arthroplasty Hip, pelvis, or leg fracture Acute spinal cord injury (< 1 month) Prophylaxis Regimen Total Risk Factor Score Risk Level Prophylaxis Regimen 0-1 Low Early ambulation 2 Moderate Order ONE of the following: *Sequential Compression Device (SCD) *Heparin 5000 units SQ BID 3-4 Higher Order ONE of the following medications: *Heparin 5000 units SQ TID *Enoxaparin/Lovenox 40 mg SQ daily (WT < 150 kg, CrCl > 30 mL/min) *Enoxaparin/Lovenox 30 mg SQ daily (WT < 150 kg, CrCl > 10-29 mL/min) *Enoxaparin/Lovenox 30 mg SQ BID (WT < 150 kg, CrCl > 30 mL/min) AND/OR *Sequential Compression Device (SCD) 5 or more Highest Order ONE of the following medications: *Heparin 5000 units SQ TID (Preferred with Epidurals) *Enoxaparin/Lovenox 40 mg SQ daily (WT < 150 kg, CrCl > 30 mL/min) *Enoxaparin/Lovenox 30 mg SQ daily (WT < 150 kg, CrCl > 10-29 mL/min) *Enoxaparin/Lovenox 30 mg SQ BID (WT < 150 kg, CrCl > 30 mL/min) AND *Sequential Compression Device (SCD) (Alicia Velásquez MD R1) Data Data Vital Signs Reviewed: Yes Orders Orders Complete Blood Count With Diff (11/10/17 06:36) Comprehensive Metabolic Panel (11/10/17 06:36) Blood Culture (11/10/17 06:36) C-Reactive Protein (Crp) (11/10/17 06:36) Urinalysis - C+S If Indicated (11/10/17 06:36) Chest, Single Ap (11/10/17 06:36) Iv Access Insert/Monitor (11/10/17 06:36) Ecg Monitoring (11/10/17 06:36) Oximetry (11/10/17 06:36) Lactic Acid Sepsis Protocol (11/10/17 06:36) Influenzae A/B Antigen (11/10/17 06:38) Ceftriaxone Inj (Rocephin Inj) (11/10/17 07:30) Azithromycin Inj (Zithromax Inj) (11/10/17 07:30) Albuterol-Ipratropium Neb (Duoneb Neb) (11/10/17 07:30) Sodium Chlor 0.9% 1000 Ml Inj (Ns 1000 M (11/10/17 07:30) Admit Order (Ed Use Only) (11/10/17 ) Labs Laboratory Tests Test 11/10/17 07:15 White Blood Count 10.0 Red Blood Count 3.69 Hemoglobin 11.5 Hematocrit 32.5 Mean Corpuscular Volume 88.1 Mean Corpuscular Hemoglobin 31.2 Mean Corpuscular Hemoglobin Concent 35.4 Red Cell Distribution Width 13.2 Platelet Count 277 Mean Platelet Volume 7.7 Neutrophils (%) (Auto) 61.1 Lymphocytes (%) (Auto) 29.1 Monocytes (%) (Auto) 8.1 Eosinophils (%) (Auto) 1.2 Basophils (%) (Auto) 0.5 Neutrophils # (Auto) 6.1 Lymphocytes # (Auto) 2.9 Monocytes # (Auto) 0.8 Eosinophils # (Auto) 0.1 Basophils # (Auto) 0.1 CBC Comment DIFF FINAL Differential Comment Urine Color YELLOW Urine Turbidity HAZY Urine pH 5.5 Urine Specific [place] 1.031 Urine Protein 30 Urine Glucose (UA) NEG Urine Ketones TRACE Urine Occult Blood NEG Urine Nitrite NEG Urine Bilirubin NEG Urine Urobilinogen 2.0 Urine Leukocyte Esterase SMALL Urine RBC 2 Urine WBC 4 Urine Squamous Epithelial Cells 4 Urine Bacteria FEW Urine Mucus MANY Microscopic Urinalysis Comment CULT NOT INDICATED Blood Urea Nitrogen 8 Creatinine 0.59 Random Glucose 88 Total Protein 6.5 Albumin 2.5 Calcium Level 8.4 Alkaline Phosphatase 181 Aspartate Amino Transf (AST/SGOT) 14 Alanine Aminotransferase (ALT/SGPT) 11 Total Bilirubin 0.2 Sodium Level 136 Potassium Level 3.9 Chloride Level 107 Carbon Dioxide Level 22.1 Anion Gap 7 Estimat Glomerular Filtration Rate 120 Lactic Acid Level 1.2 C-Reactive Protein 0.41 Date/Time Source Procedure Growth Status 11/10/17 07:30 Blood Peripheral Aerobic Blood Culture Pending Received 11/10/17 07:30 Blood Peripheral Anaerobic Blood Culture Pending Received 11/10/17 07:15 Nasal Aspirate Influenza Types A,B Antigen (PURA) - Final NEGATIVE FOR FLU A AND B ANTIGEN.... Complete (Alicia Velásquez MD R1) Assessment/Plan Problem List: (1) Pneumonia affecting ICD Codes: O99.519 - Diseases of the respiratory system complicating , unspecified trimester; J18.9 - Pneumonia, unspecified organism Status: Acute Qualifiers: Qualified Codes: O99.513 - Diseases of the respiratory system complicating , third trimester; J18.9 - Pneumonia, unspecified organism Plan: Patient with cough and fevers of 1.5 weeks duration. Pt is satting well on room air. Labs show no leukocytosis. Chest x-ray on admission shows right medial lung base opacity. * 1 dose of azithromycin 500 mg given in the ED * Will continue azithromycin 250 mg every 24 hours * 1 dose of Rocephin 1 g given in ED * Will continue Rocephin 1 g every 24 hours * Vitals every 4hrs, monitor for drop in O2 saturations and respiratory distress (2) ICD Codes: Z34.90 - Encounter for supervision of normal , unspecified , unspecified trimester Status: Chronic Qualifiers: Qualified Codes: Z3A.37 - 37 weeks gestation of Plan: Patient at 37/4 weeks on admission * Obtain U/S with BPP * NST every shift * Continue at home vitamins, iron supplement, and folic acid (3) Seizure disorder during ICD Codes: O99.350 - Diseases of the nervous system complicating , unspecified trimester; G40.909 - Epilepsy, unspecified, not intractable, without status epilepticus Status: Chronic Qualifiers: Qualified Codes: O99.353 - Diseases of the nervous system complicating , third trimester; G40.909 - Epilepsy, unspecified, not intractable, without status epilepticus Plan: * Continue at home Keppra 250 mg twice a day (4) SLE (systemic lupus erythematosus) ICD Codes: M32.9 - Systemic lupus erythematosus, unspecified Status: Chronic Qualifiers: Qualified Codes: M32.9 - Systemic lupus erythematosus, unspecified Plan: * Patient not on any at-home medications * Will obtain ultrasound as above to monitor for any effects on the developing fetus (5) FEN Status: Acute Plan: Fluids: tolerating PO Electrolytes: monitor and replete as needed Nutrition: Regular diet DVT Prophylaxis: Early ambulation. bilateral SCDs Pain/fever: Tylenol 650 mg for pain 1-10, temperature>101F Nausea: Zofran 4 mg for nausea/vomiting Discharge Planning likely home after 24hrs of IV abx, 1-2 days (Alicia Velásquez MD R1) Collaborating MD Comments Agree with care, patient seen and examined. (Lucrecia Garcia MD) Alicia Velásquez MD R1 Nov 10, 2017 12:38 Lucrecia Garcia MD Nov 13, 2017 09:54
[2017-11-10] MEDS ORDERED: SODIUM CHLORIDE 0.9% FLUSH 10 ML FLUSH IV FLUSH PRN (12:45)
[2017-11-10] MEDS ORDERED: ONDANSETRON ODT 4 MG TAB PO PRN (12:45)
[2017-11-10] MEDS: ACETAMINOPHEN 325 MG TAB PO PRN ×2 (13:16→18:30)
[2017-11-10] MEDS: guaiFENesin/DEXTROMETHORPHAN 200 MG/20 MG/10 ML CUP PO PRN (14:18)
[2017-11-10] MEDS ORDERED: RESP: ALBUTEROL 2.5 MG/IPRATROPIUM 0.5 MG NEB (SCH) ONE (17:58)
[2017-11-10] MEDS: RESP: ALBUTEROL 2.5 MG/IPRATROPIUM 0.5 MG NEB (SCH) NEB (20:34)
[2017-11-10] MEDS ORDERED: SODIUM CHLORIDE 0.9% FLUSH 10 ML FLUSH IV FLUSH SCH (21:00)
[2017-11-10] MEDS: levETIRAcetam 250 MG TAB PO SCH (21:11)
[2017-11-11 00:01] VITALS: BP 111/63; PULSE 88
[2017-11-11 00:02] VITALS: RESP 18; TEMP 98.2
[2017-11-11 04:24] VITALS: BP 124/85; PULSE 86
[2017-11-11 04:26] VITALS: RESP 20; TEMP 97.6
[2017-11-11 05:58] LABS: AUTOMATED NEUTROPHIL # 4.7 TH/MM3 (1.8-7.7); BASOPHIL # 0.1 TH/MM3 (0-0.2); BASOPHIL % 0.7 % (0.0-2.0); EOSINOPHIL # 0.2 TH/MM3 (0-0.4); HEMATOCRIT 30.4 % (35.0-46.0); HEMOGLOBIN 10.5 GM/DL (11.6-15.3); LYMPH % 28.6 % (9.0-44.0); LYMPHOCYTE # 2.2 TH/MM3 (1.0-4.8); MEAN CELL VOLUME 89.5 FL (80.0-100.0); MEAN CORPUSCULAR HEMOGLOBIN 30.9 PG (27.0-34.0); MEAN CORPUSCULAR HGB CONC 34.6 % (32.0-36.0); MEAN PLATELET VOLUME 7.5 FL (7.0-11.0); MONO % 8.4 % (0.0-8.0); MONOCYTE # 0.7 TH/MM3 (0-0.9); NEUT % 60.3 % (16.0-70.0); PLATELET COUNT 245 TH/MM3 (150-450); RED CELL DISTRIBUTION WIDTH 13.3 % (11.6-17.2); WHITE BLOOD COUNT 7.8 TH/MM3 (4.0-11.0)
[2017-11-11 06:13] LABS: ALBUMIN 2.3 GM/DL (3.4-5.0); AST (GOT) 6 U/L (15-37); BICARBONATE 26.9 MEQ/L (21.0-32.0); BLOOD UREA NITROGEN 7 MG/DL (7-18); CALCIUM 8.2 MG/DL (8.5-10.1); CHLORIDE 106 MEQ/L (98-107); CREATININE 0.51 MG/DL (0.50-1.00); GLOMERULAR FILTRATION RATE 142 ML/MIN (>89); GLUCOSE,RANDOM 84 MG/DL (74-106); SODIUM (NA) 137 MEQ/L (136-145)
[2017-11-11 06:14] LABS: ALT (GPT) 10 U/L (10-53)
[2017-11-11 06:17] LABS: ALKALINE PHOSPHATASE 159 U/L (45-117); TOTAL BILIRUBIN ADULT 0.2 MG/DL (0.2-1.0); TOTAL PROTEIN 5.7 GM/DL (6.4-8.2)
[2017-11-11] MEDS: RESP: ALBUTEROL 2.5 MG/IPRATROPIUM 0.5 MG NEB (SCH) NEB (07:05)
[2017-11-11] MEDS ORDERED: cefTRIAXone INJ 1,000 MG in SODIUM CHLORIDE 0.9% INJ 100 ML IV SCH (08:00)
[2017-11-11] MEDS ORDERED: AZITHROMYCIN INJ 250 MG in SODIUM CHLOR 0.9% 250 ML INJ 250 ML IV SCH (08:00)
[2017-11-11 08:10] VITALS: BP 93/28; PULSE 111
[2017-11-11] MEDS: ACETAMINOPHEN 325 MG TAB PO PRN (08:21)
[2017-11-11] MEDS: levETIRAcetam 250 MG TAB PO SCH (08:21)
--- NOTE | 2017-11-11 08:30 | PD.OB.ANTE ---
Subjective Diagnosis: (1) Pneumonia affecting Diagnosis: Principal (2) (3) Seizure disorder during (4) SLE (systemic lupus erythematosus) (5) FEN Interval History Patient seen and examined this morning. She states that she feels better breathing escobar, but is having increased pain from coughing in her bilateral ribs. She is eating and drinking well. Urinating/stooling well. No other complaints. Antepartum ROS: Reports: movement normal, Denies: New complaints, Loss of fluid, Vaginal bleeding, Contractions Objective Vital Signs Vital Signs Date Time Temp Pulse Resp B/P (MAP) Pulse Ox O2 Delivery O2 Flow Rate FiO2 11/11/17 04:26 20 11/11/17 04:26 97.6 11/11/17 04:24 86 124/85 (98) 11/11/17 00:02 98.2 18 11/11/17 00:01 88 111/63 (79) 11/10/17 21:00 97.9 11/10/17 20:19 16 11/10/17 20:08 78 111/69 (83) 11/10/17 19:00 98.0 11/10/17 18:23 18 11/10/17 18:23 8 11/10/17 18:23 92 126/76 (93) 11/10/17 12:50 89 100 11/10/17 12:45 84 11/10/17 12:45 100 11/10/17 12:40 82 11/10/17 12:40 100 11/10/17 12:35 87 11/10/17 12:35 99 11/10/17 12:30 99 11/10/17 12:30 87 11/10/17 12:25 91 11/10/17 12:25 99 11/10/17 12:20 83 100 11/10/17 12:15 94 99 11/10/17 12:10 91 98 11/10/17 12:05 90 99 11/10/17 12:00 92 99 11/10/17 10:45 Lab & Micro Results Test 11/11/17 05:10 White Blood Count 7.8 TH/MM3 Red Blood Count 3.40 MIL/MM3 Hemoglobin 10.5 GM/DL Hematocrit 30.4 % Mean Corpuscular Volume 89.5 FL Mean Corpuscular Hemoglobin 30.9 PG Mean Corpuscular Hemoglobin Concent 34.6 % Red Cell Distribution Width 13.3 % Platelet Count 245 TH/MM3 Mean Platelet Volume 7.5 FL Neutrophils (%) (Auto) 60.3 % Lymphocytes (%) (Auto) 28.6 % Monocytes (%) (Auto) 8.4 % Eosinophils (%) (Auto) 2.0 % Basophils (%) (Auto) 0.7 % Neutrophils # (Auto) 4.7 TH/MM3 Lymphocytes # (Auto) 2.2 TH/MM3 Monocytes # (Auto) 0.7 TH/MM3 Eosinophils # (Auto) 0.2 TH/MM3 Basophils # (Auto) 0.1 TH/MM3 CBC Comment DIFF FINAL Differential Comment Blood Urea Nitrogen 7 MG/DL Creatinine 0.51 MG/DL Random Glucose 84 MG/DL Total Protein 5.7 GM/DL Albumin 2.3 GM/DL Calcium Level 8.2 MG/DL Alkaline Phosphatase 159 U/L Aspartate Amino Transf (AST/SGOT) 6 U/L Alanine Aminotransferase (ALT/SGPT) 10 U/L Total Bilirubin 0.2 MG/DL Sodium Level 137 MEQ/L Potassium Level 4.4 MEQ/L Chloride Level 106 MEQ/L Carbon Dioxide Level 26.9 MEQ/L Anion Gap 4 MEQ/L Estimat Glomerular Filtration Rate 142 ML/MIN Date/Time Source Procedure Growth Status 11/10/17 07:30 Blood Peripheral Aerobic Blood Culture Pending Received 11/10/17 07:30 Blood Peripheral Anaerobic Blood Culture Pending Received 11/10/17 07:15 Nasal Aspirate Influenza Types A,B Antigen (PURA) - Final NEGATIVE FOR FLU A AND B ANTIGEN.... Complete Physical Exam GENERAL: Well-nourished, well-developed patient. CARDIOVASCULAR: Regular rate and rhythm without murmurs, gallops, or rubs. RESPIRATORY: Breath sounds equal bilaterally. No accessory muscle use. Mildly coarse breath sounds diffusely, but much improved from examination yesterday ABDOMEN/GI: Abdomen soft, non-tender. Gravid to 37 weeks FHT's: Category: 1 Baseline: 120s Reactive: yes Variability: moderate Decels: none EXTREMITIES: No cyanosis or edema, non-tender, without signs of DVT. Assessment and Plan Problem List: (1) Pneumonia affecting ICD Codes: O99.519 - Diseases of the respiratory system complicating , unspecified trimester; J18.9 - Pneumonia, unspecified organism Status: Acute Qualifiers: Qualified Codes: O99.513 - Diseases of the respiratory system complicating , third trimester; J18.9 - Pneumonia, unspecified organism Plan: Patient with cough and fevers of 1.5 weeks duration. Pt is satting well on room air. Labs show no leukocytosis. Chest x-ray on admission shows right medial lung base opacity. * 1 dose of azithromycin 500 mg given in the ED * Will continue azithromycin 250 mg every 24 hours * 1 dose of Rocephin 1 g given in ED * Will continue Rocephin 1 g every 24 hours * Vitals every 4hrs, monitor for drop in O2 saturations and respiratory distress * Incentive spirometry (2) ICD Codes: Z34.90 - Encounter for supervision of normal , unspecified , unspecified trimester Status: Chronic Qualifiers: Qualified Codes: Z3A.37 - 37 weeks gestation of Plan: Patient at 37/4 weeks on admission * U/S with BPP performed on 11/10 shows good growth from previous scan, no anomalies seen, normal amniotic fluid, BPP 05/19 * NST every shift * Continue at home vitamins, iron supplement, and folic acid (3) Seizure disorder during ICD Codes: O99.350 - Diseases of the nervous system complicating , unspecified trimester; G40.909 - Epilepsy, unspecified, not intractable, without status epilepticus Status: Chronic Qualifiers: Qualified Codes: O99.353 - Diseases of the nervous system complicating , third trimester; G40.909 - Epilepsy, unspecified, not intractable, without status epilepticus Plan: * Continue at home Keppra 250 mg twice a day (4) SLE (systemic lupus erythematosus) ICD Codes: M32.9 - Systemic lupus erythematosus, unspecified Status: Chronic Qualifiers: Qualified Codes: M32.9 - Systemic lupus erythematosus, unspecified Plan: * Patient not on any at-home medications * Will obtain ultrasound as above to monitor for any effects on the developing fetus (5) FEN Status: Acute Plan: Fluids: tolerating PO Electrolytes: monitor and replete as needed Nutrition: Regular diet DVT Prophylaxis: Early ambulation. bilateral SCDs Pain/fever: Tylenol 650 mg for pain 1-10, temperature>101F Nausea: Zofran 4 mg for nausea/vomiting Alicia Velásquez MD R1 Nov 11, 2017 08:30
[2017-11-11 08:33] VITALS: RESP 20; TEMP 98.1
[2017-11-11] MEDS ORDERED: ONDANSETRON HCL 4 MG/2 ML VIAL IV PUSH PRN (08:45)
[2017-11-11] MEDS: guaiFENesin/DEXTROMETHORPHAN 200 MG/20 MG/10 ML CUP PO PRN (08:58)
[2017-11-11] MEDS ORDERED: FOLIC ACID 1 MG TAB PO SCH (09:00)
[2017-11-11] MEDS ORDERED: MULTIVIT/MIN/PREN/FOL AC/IRON PRENATAL TAB PO SCH (09:00)
[2017-11-11] MEDS ORDERED: FERROUS SULFATE 325 MG (65 MG ELEMENTAL IRON) TAB PO SCH (09:00)
[2017-11-11] MEDS ORDERED: ASPIRIN 81 MG CHEW TAB CHEW SCH (09:00)
--- NOTE | 2017-11-11 10:07 | HHI.DCPOC ---
Discharge Care Plan Diagnosis: (1) Pneumonia affecting Goals to Promote Your Health * To prevent worsening of your condition and complications * To maintain your health at the optimal level Directions to Meet Your Goals Take your medications as prescribed Follow your dietary instruction Follow activity as directed Keep your appointments as scheduled Take your immunizations and boosters as scheduled If your symptoms worsen call your PCP, if no PCP go to Urgent Care Center or Emergency Room Smoking is Dangerous to Your Health. Avoid second hand smoke Call the 24-hour hour crisis hotline for domestic abuse at Topher Adan MD Nov 11, 2017 10:07
[2017-11-11] MEDS ORDERED: AMOX875T PO (10:13)
[2017-11-11] MEDS ORDERED: AZIT250T3 PO (10:13)
[2017-11-11] MEDS ORDERED: PROM25TA10 PO (13:37)
== END 2017-11-11 14:22 | disposition home or self-care (01) | DRG 774 ==
LOC: NEPE 04:52 → NEDA 08:25 → UNDOADMIN 08:25 → H2EA 11:06 → NEDA 11:06 → H2EA 11:23
PROVIDERS: ADMIT Obstetrics & Gynecology Obstetrics; ATTEND Obstetrics & Gynecology Obstetrics
DX: O99.89 Other specified diseases and conditions complicating pregnancy, childbirth and the puerperium (principal); O99.52 Diseases of the respiratory system complicating childbirth; O10.913 Unspecified pre-existing hypertension complicating pregnancy, third trimester; J18.9 Pneumonia, unspecified organism; M32.9 Systemic lupus erythematosus, unspecified; G40.909 Epilepsy, unspecified, not intractable, without status epilepticus; O99.354 Diseases of the nervous system complicating childbirth; O99.334 Smoking (tobacco) complicating childbirth; F17.210 Nicotine dependence, cigarettes, uncomplicated; I73.00 Raynaud's syndrome without gangrene; M06.9 Rheumatoid arthritis, unspecified; O99.353 Diseases of the nervous system complicating pregnancy, third trimester; O99.42 Diseases of the circulatory system complicating childbirth; Z87.410 Personal history of cervical dysplasia; Z3A.37 37 weeks gestation of pregnancy
CPT/HCPCS: 71045; 76816; 76819; 80053; 81001; 83605; 85025; 86140; 87040; 87804; 94640; 94664; 96365; 96375; J0456; J0696; J2405; J7030; J7050

== ENCOUNTER 2017-11-20 13:32 | Emergency (ER) | payer OTHER ==
[~2017-11-20 13:32] MED LIST changes: -ACET120S PO; +AMOX875T PO; +AZIT250T3 PO; -CALCCHW3 CHEW; -DOXY10TA PO
--- NOTE | 2017-11-20 14:12 | PD ---
HPI Date Seen: Nov 20, 2017 Time Seen: 13:50 (Alicia Velásquez MD R1) Travel History International Travel<30 Days: No Contact w/Intl Traveler<30Days: No Known Affected Area: No (Alicia Velásquez MD R1) History of Present Illness HPI Ms. Levy is a 31yo at 39/0 presenting to the OB ED due to concerns about vaginal bleeding. She states that she noticed spotting today and contractions. She states that the contractions feel like menstrual cramps. No leakage of fluids, no dysuria, no chest pains or shortness of breath or fluid pain. Feels the baby move, but less than usual. Weeks Gestation: 39 Para: 0 : 1 (Alicia Velásquez MD R1) History Past Medical History Narrative Medical Lupus (not on meds due to , was previously on methotrexate and Plaquenil) Raynaud's phenomenon Rheumatoid arthritis Seizure disorder (on Keppra 250mg BID) (Alicia Velásquez MD R1) Obstetric History Obstetric History LMP in [place] 11/26/2017 determined by ultrasound No hx of STDs (Alicia Velásquez MD R1) Past Surgical History Narrative Surgical cholecystectomy (Alicia Velásquez MD R1) Family History Narrative Family History Mother- at 46 of CAD, [place] Father- [place], CAD (Alicia Velásquez MD R1) Social History Narrative Social History 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 Lives with her boyfriend at his uncle's house with his mother Smokes 1-4 cigarettes every other day, now vaping to decrease cigarette use No alcohol use No illicit drug use (Alicia Velásquez MD R1) Allergies-Medications (Allergen,Severity, Reaction): Coded Allergies: Sulfa (Sulfonamide Antibiotics) (Unverified Allergy, Unknown, 11/10/17) Home Meds Active Scripts Promethazine (Phenergan) 25 Mg Tablet, 25 MG PO Q6H Y for NAUSEA OR VOMITING, # 30 TAB 0 Refills Prov:Topher Adan MD 11/11/17 Azithromycin (Azithromycin) 250 Mg Tab, 250 MG PO DAILY for Infection, #10 TAB 0 Refills Prov:Topher Adan MD 11/11/17 Amoxicillin (Amoxicillin) 875 Mg Tab, 875 MG PO BID for Infection, #20 TAB 0 Refills Prov:Topher Adan MD 11/11/17 Levetiracetam (Keppra) 250 Mg Tab, 250 MG PO BID for Control Seizures, #60 TAB 2 Refills Prov:Loc Izaguirre MD 07/13/17 W/O Vit A W/ Fe Fumar (Citranatal [place]) 27-1-260 Mg Cap, 1 CAP PO DAILY for Nutritional Supplement, #30 CAP 10 Refills Prov:Felicity Jhaveri 07/13/17 Reported Medications Aspirin (Aspirin) 81 Mg Chew, 81 MG CHEW DAILY, TAB 0 Refills 08/24/17 Ferrous Sulfate (Ferrous Sulfate) 325 Mg (65 Mg Iron) Tablet, 325 MG PO DAILY for Nutritional Supplement, #30 TAB 0 Refills 08/24/17 Folic Acid (Folic Acid) 0.4 Mg Tab, 3 MG PO DAILY for Nutritional Supplement, TAB 0 Refills 08/24/17 Review of Systems General / Constitutional: No: Fever, Chills Eyes: No: Blurred Vision HENT: No: Headaches Cardiovascular: No: Chest Pain or Discomfort, Palpitations Respiratory: No: Cough, Short of Breath Gastrointestinal: Abdominal Pain Genitourinary: Vaginal Bleeding, No: Dysuria Musculoskeletal: No: Weakness Skin: No Rash Neurologic: No: Dizziness (Alicia Velásquez MD R1) Physical Exam Narrative GENERAL: Well-nourished, well-developed patient. SKIN: Warm and dry. HEAD: Normocephalic and atraumatic. EYES: No scleral icterus. No injection or drainage. ENT: No nasal drainage noted. Mucous membranes pink. Airway patent. NECK: Supple, trachea midline. No JVD. CARDIOVASCULAR: Regular rate and rhythm without murmurs, gallops, or rubs. RESPIRATORY: Breath sounds equal bilaterally. No accessory muscle use. BREASTS: Bilateral exam showed no masses , no retractions, no nipple discharge. ABDOMEN/GI: Abdomen soft, non-tender, bowel sounds present, no rebound, no guarding Gravid to 38 weeks size GENITOURINARY: External Genitalia: intact and normal in appearance Cervix: posterior Dilatation: closed Effacement: 70% Station: -2 Membranes: intact Uterine Contractions: none FHT's: Category: 1 Baseline: 140s Reactive: yes Variability: moderate Decels: none EXTREMITIES: No cyanosis or edema. BACK: Nontender without obvious deformity. No CVA tenderness. NEUROLOGICAL: Awake and alert. Motor and sensory grossly within normal limits. Five out of 5 muscle strength in all muscle groups. Normal speech. (Alicia Velsáquez MD R1) Data Data Vital Signs Reviewed: Yes (Alicia Velásquez MD R1) [facility] Medical Record Reviewed: Yes Plan 31-year-old at 39/0 weeks gestation presenting due to concerns about vaginal bleeding. -Continuous monitoring -FHT shows category 1 tracing, reassuring -Possible occasional contractions noted on FHT -Encouraged patient to increase water intake to decrease cramping (Alicia Velásquez MD R1) Attending Attestation Patient seen and evaluated with resident under direct supervision, agree with assessment and plan. (Joel Andrews MD) Diagnosis Diagnosis: Primary Impression: 39 weeks gestation of Additional Impression: Vaginal spotting Disposition: DISCHARGE HOME Condition: Stable Alicia Velásquez MD R1 Nov 20, 2017 14:12 Joel Andrews MD Nov 20, 2017 14:50
[2017-11-20 14:15] VITALS: BP 122/85; PULSE 93
[2017-11-26] MEDS ORDERED: SERT-132 PO (14:17)
== END 2017-11-20 14:56 | disposition home or self-care (01) ==
LOC: HOBED 13:32
DX: O26.853 Spotting complicating pregnancy, third trimester (principal); M32.9 Systemic lupus erythematosus, unspecified; M06.9 Rheumatoid arthritis, unspecified; O99.353 Diseases of the nervous system complicating pregnancy, third trimester; G40.909 Epilepsy, unspecified, not intractable, without status epilepticus; O99.333 Smoking (tobacco) complicating pregnancy, third trimester; F17.210 Nicotine dependence, cigarettes, uncomplicated; F17.290 Nicotine dependence, other tobacco product, uncomplicated; Z3A.39 39 weeks gestation of pregnancy
CPT/HCPCS: 59025

== ENCOUNTER 2017-11-23 08:12 | Inpatient (IN) | payer OTHER ==
[~2017-11-23] VITALS: Ht 167.6 cm; Wt 64.0 kg
[2017-11-23] VITALS (52 sets, daily range): BP systolic 96–167; BP diastolic 60–127; PULSE 54–124; RESP 17–18; TEMP 97.8–98.4
[2017-11-23] MEDS ORDERED: LACTATED RINGER'S 1000 ML INJ 1,000 ML IV PRN (08:56)
[2017-11-23] MEDS ORDERED: OXYTOCIN 30 UNITS-500ML PREMIX 500 ML IV ONE (09:00)
[2017-11-23] MEDS ORDERED: SODIUM CHLORID 0.9% 500 ML INJ 500 ML IV PRN (09:00)
[2017-11-23] MEDS ORDERED: ONDANSETRON HCL 4 MG/2 ML VIAL IV PUSH PRN (09:00)
[2017-11-23] MEDS ORDERED: MINERAL OIL 10 ML VIAL TOPICAL PRN (09:00)
[2017-11-23] MEDS ORDERED: LIDOCAINE HCL 1% 50 ML VIAL I-DERMAL PRN (09:00)
[2017-11-23] MEDS ORDERED: LIDOCAINE HCL 1% 50 ML VIAL INFIL PRN (09:00)
[2017-11-23] MEDS ORDERED: CITRIC ACID-SODIUM CITRATE LIQ 30 ML UDC PO SCH (09:00)
[2017-11-23] MEDS ORDERED: OXYTOCIN 30 UNITS-500ML PREMIX 500 ML IV PRN (09:15)
[2017-11-23] MEDS ORDERED: SODIUM CHLOR 0.9% 1000 ML INJ 1,000 ML IV PRN (09:16)
--- NOTE | 2017-11-23 09:17 | HHI.HP ---
HPI Chief Complaint Leakage of fluids and contractions Date Seen: Nov 23, 2017 Time Seen: 09:16 Travel History International Travel<30 Days: No Contact w/Intl Traveler<30Days: No Known Affected Area: No History of Present Illness HPI Ms. Levy is a 31-year-old at 39/3 weeks gestation presenting to the OB ED due to concerns about leakage of fluids and contractions. She states that she has been cramping on and off since last night at 6 PM. She states that it progressively got worse from every 45 minutes to every 5 minutes. At around 4 AM she felt like she had "peed her pants." She is still experiencing vaginal bleeding which started out as dark blood this morning but has gotten brighter red. She is also having dysuria on and off. No chest pain, no shortness of breath, no leg pain. She is feeling baby move. She states that she has not been taking her Keppra for seizure disorder for the past 2-3 weeks due to feeling nauseous and lethargic. 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 Lives with her boyfriend at his uncle's house with his mother Smokes 1-4 cigarettes every other day, now vaping to decrease cigarette use No alcohol use No illicit drug use Alcohol Use: No Tobacco Use: Yes Substance Abuse: No Allergies-Medications (Allergen,Severity, Reaction): Coded Allergies: Sulfa (Sulfonamide Antibiotics) (Unverified Allergy, Unknown, 11/10/17) Home Meds Active Scripts Promethazine (Phenergan) 25 Mg Tablet, 25 MG PO Q6H Y for NAUSEA OR VOMITING, # 30 TAB 0 Refills Prov:Topher Adan MD 11/11/17 Amoxicillin (Amoxicillin) 875 Mg Tab, 875 MG PO BID for Infection, #20 TAB 0 Refills Prov:Topher Adan MD 11/11/17 Levetiracetam (Keppra) 250 Mg Tab, 250 MG PO BID for Control Seizures, #60 TAB 2 Refills Prov:Loc Izaguirre MD 07/13/17 W/O Vit A W/ Fe Fumar (Citranatal [place]) 27-1-260 Mg Cap, 1 CAP PO DAILY for Nutritional Supplement, #30 CAP 10 Refills Prov:Felicity Jhaveri 07/13/17 Reported Medications Aspirin (Aspirin) 81 Mg Chew, 81 MG CHEW DAILY, TAB 0 Refills 08/24/17 Ferrous Sulfate (Ferrous Sulfate) 325 Mg (65 Mg Iron) Tablet, 325 MG PO DAILY for Nutritional Supplement, #30 TAB 0 Refills 08/24/17 Folic Acid (Folic Acid) 0.4 Mg Tab, 3 MG PO DAILY for Nutritional Supplement, TAB 0 Refills 08/24/17 Discontinued Scripts Azithromycin (Azithromycin) 250 Mg Tab, 250 MG PO DAILY for Infection, #10 TAB 0 Refills Prov:Topher Adan MD 11/11/17 Review of Systems General / Constitutional: No: Fever, Chills Eyes: No: Blurred Vision HENT: No: Headaches Cardiovascular: No: Chest Pain or Discomfort, Palpitations Respiratory: No: Cough, Short of Breath Genitourinary: No: Dysuria Musculoskeletal: No: Weakness Skin: No Rash Neurologic: No: Dizziness Physical Exam Narrative GENERAL: Well-nourished, well-developed patient. SKIN: Warm and dry. HEAD: Normocephalic and atraumatic. EYES: No scleral icterus. No injection or drainage. ENT: No nasal drainage noted. Mucous membranes pink. Airway patent. NECK: Supple, trachea midline. No JVD. CARDIOVASCULAR: Regular rate and rhythm without murmurs, gallops, or rubs. RESPIRATORY: Breath sounds equal bilaterally. No accessory muscle use. BREASTS: Bilateral exam showed no masses , no retractions, no nipple discharge. ABDOMEN/GI: Abdomen soft, non-tender, bowel sounds present, no rebound, no guarding Gravid to 39 weeks size GENITOURINARY: External Genitalia: intact and normal in appearance Cervix: posterior Dilatation: 1 Effacement: 80% Station: -1 Membranes: ruptured Uterine Contractions: yes, q3min FHT's: Category: 1 Baseline: 130s Reactive: yes Variability: moderate Decels: none EXTREMITIES: No cyanosis or edema. BACK: Nontender without obvious deformity. No CVA tenderness. NEUROLOGICAL: Awake and alert. Motor and sensory grossly within normal limits. Five out of 5 muscle strength in all muscle groups. Normal speech. Caprini VTE Risk Assessment Caprini VTE Risk Assessment: Mod/High Risk (score >= 2) Caprini Risk Assessment Model Point Value = 1 Point Value = 2 Point Value = 3 Point Value = 5 Age 41-60 Minor surgery BMI > 25 kg/m2 Swollen legs Varicose veins or History of unexplained or recurrent spontaneous Oral contraceptives or hormone replacement Sepsis (< 1 month) Serious lung disease, including pneumonia (< 1 month) Abnormal pulmonary function Acute myocardial infarction Congestive heart failure (< 1 month) History of inflammatory bowel disease Medical patient at bed rest Age 61-74 Arthroscopic surgery Major open surgery (> 45 min) Laparoscopic surgery (> 45 min) Malignancy Confined to bed (> 72 hours) Immobilizing plaster cast Central venous access Age >= 75 History of VTE Family history of VTE Factor V Leiden Prothrombin [id number] Lupus anticoagulant Anticardiolipin antibodies Elevated serum homocysteine Heparin-induced thrombocytopenia Other congenital or acquired thrombophilia Stroke (< 1 month) Elective arthroplasty Hip, pelvis, or leg fracture Acute spinal cord injury (< 1 month) Prophylaxis Regimen Total Risk Factor Score Risk Level Prophylaxis Regimen 0-1 Low Early ambulation 2 Moderate Order ONE of the following: *Sequential Compression Device (SCD) *Heparin 5000 units SQ BID 3-4 Higher Order ONE of the following medications: *Heparin 5000 units SQ TID *Enoxaparin/Lovenox 40 mg SQ daily (WT < 150 kg, CrCl > 30 mL/min) *Enoxaparin/Lovenox 30 mg SQ daily (WT < 150 kg, CrCl > 10-29 mL/min) *Enoxaparin/Lovenox 30 mg SQ BID (WT < 150 kg, CrCl > 30 mL/min) AND/OR *Sequential Compression Device (SCD) 5 or more Highest Order ONE of the following medications: *Heparin 5000 units SQ TID (Preferred with Epidurals) *Enoxaparin/Lovenox 40 mg SQ daily (WT < 150 kg, CrCl > 30 mL/min) *Enoxaparin/Lovenox 30 mg SQ daily (WT < 150 kg, CrCl > 10-29 mL/min) *Enoxaparin/Lovenox 30 mg SQ BID (WT < 150 kg, CrCl > 30 mL/min) AND *Sequential Compression Device (SCD) Data Data Vital Signs Reviewed: Yes Orders Orders Ob (2e) Additional Admit Info (11/23/17 08:47) Group B Strep Pcr (Rapid) (11/23/17 08:54) Admit To Inpatient (11/23/17 ) Code Status (11/23/17 08:56) Vital Signs (Adult) .Per protocol (11/23/17 08:56) Activity Oob Ad Gina (11/23/17 08:56) Heart (11/23/17 08:56) Amnioinfusion (11/23/17 08:56) Urinary Catheter Management .ONCE (11/23/17 08:56) Diet Liquid (11/23/17 Breakfast) Lactated Ringer's 1000 Ml Inj (Lr 1000 M (11/23/17 08:56) Lactated Ringer's 1000 Ml Inj (Lr 1000 M (11/23/17 08:56) Sodium Chlorid 0.9% 500 Ml Inj (Ns 500 M (11/23/17 09:00) Sodium Chlor 0.9% 1000 Ml Inj (Ns 1000 M (11/23/17 09:16) Lidocaine 1% Inj (50 Ml) (Xylocaine 1% I (11/23/17 09:00) Citric Acid-Sodium Citrate Liq (Bicitra (11/23/17 09:00) Ondansetron Inj (Zofran Inj) (11/23/17 09:00) Fentanyl Inj (Fentanyl Inj) (11/23/17 09:00) Fentanyl Inj (Fentanyl Inj) (11/23/17 09:00) Complete Blood Count With Diff (11/23/17 08:56) Hold Clot (11/23/17 08:56) Abo/Rh Blood Type (11/23/17 08:56) Urinalysis - C+S If Indicated (11/23/17 08:56) Drug Screen, Random Urine (11/23/17 08:56) Type And Screen (11/23/17 08:56) Resp Oxygen Non Rebreathe Mask (11/23/17 ) ^ Epidural / Intrathecal Infus (11/23/17 08:56) Oxytocin 30 Units-500ml Premix (Pitocin (11/23/17 09:00) Lidocaine 1% Inj (50 Ml) (Xylocaine 1% I (11/23/17 09:00) Light Mineral Oil (Muri-Lube Oil) (11/23/17 09:00) Inpatient Certification (11/23/17 ) Specimen To Be Collected PRN (11/23/17 08:56) Specimen To Be Collected PRN (11/23/17 08:56) ^ Non Stress Test (11/23/17 09:15) Response To Medication .Post New Med Administration, Reaction (11/23/17 09:15) ^ Discontinue Medication (11/23/17 09:15) Oxytocin Drip (2-2-30) (11/23/17 09:15) Assessment/Plan Problem List: (1) Leakage of amniotic fluid ICD Codes: O42.90 - Premature rupture of membranes, unspecified as to length of time between rupture and onset of labor, unspecified weeks of gestation Status: Acute (2) Hx of seizure disorder ICD Codes: Z86.69 - Personal history of other diseases of the nervous system and sense organs Status: Chronic (3) Lupus ICD Codes: L93.0 - Discoid lupus erythematosus Assessment and Plan 31yo at 39/3 weeks gestation presenting after leakage of fluid at home and regular contractions. Admit for labor. FHT is reassuring with category 1 tracing -Amnisure is positive -Start Pitocin -Will obtain urinalysis due to dysuria Seizure Disorder -Will monitor for seizure activity Lupus -24h urine protein 220. -Last creatinine was 0.51 -Will recheck labs Alicia Velásquez MD R1 Nov 23, 2017 09:17
[2017-11-23] MEDS: LACTATED RINGER'S 1000 ML INJ 1,000 ML IV SCH ×3 (09:24→13:37)
[2017-11-23 09:41] LABS: AUTOMATED NEUTROPHIL # 11.3 TH/MM3 (1.8-7.7); BASOPHIL # 0.1 TH/MM3 (0-0.2); BASOPHIL % 0.6 % (0.0-2.0); EOSINOPHIL # 0.1 TH/MM3 (0-0.4); EOSINOPHIL % 0.7 % (0.0-4.0); HEMOGLOBIN 13.3 GM/DL (11.6-15.3); LYMPH % 16.1 % (9.0-44.0); LYMPHOCYTE # 2.4 TH/MM3 (1.0-4.8); MEAN CELL VOLUME 89.1 FL (80.0-100.0); MEAN CORPUSCULAR HEMOGLOBIN 30.4 PG (27.0-34.0); MEAN CORPUSCULAR HGB CONC 34.1 % (32.0-36.0); MEAN PLATELET VOLUME 8.1 FL (7.0-11.0); MONO % 6.1 % (0.0-8.0); MONOCYTE # 0.9 TH/MM3 (0-0.9); NEUT % 76.5 % (16.0-70.0); PLATELET COUNT 315 TH/MM3 (150-450); RED BLOOD COUNT 4.38 MIL/MM3 (4.00-5.30); RED CELL DISTRIBUTION WIDTH 13.4 % (11.6-17.2); WHITE BLOOD COUNT 14.8 TH/MM3 (4.0-11.0)
[2017-11-23 09:52] LABS: BILIRUBIN, URINE NEG (NEG); BLOOD, URINE SMALL (NEG); GLUCOSE,URINE NEG (NEG); KETONE, URINE NEG (NEG); NITRITE,URINE NEG (NEG); PH, URINE 7.5 (5.0-8.5); SQUAMOUS EPITHELIAL CELL URINE 1 /hpf (0-5); URINE COLOR LIGHT-YELLOW (YELLW/STRAW); URINE LEUKOCYTE ESTERASE MOD (NEG)
[2017-11-23] MEDS ORDERED: ePHEDrine/NS 25 MG/5 ML SYRINGE ONE (12:38)
[2017-11-23] MEDS ORDERED: fentaNYL 2MCG-BUPIV 0.125% INJ 100 ML ONE (12:38)
[2017-11-23 13:03] LABS: ALKALINE PHOSPHATASE 262 U/L (45-117); TOTAL BILIRUBIN ADULT 0.2 MG/DL (0.2-1.0); TOTAL PROTEIN 6.9 GM/DL (6.4-8.2)
[2017-11-23 13:06] LABS: ALBUMIN 2.6 GM/DL (3.4-5.0); ALT (GPT) 10 U/L (10-53); AST (GOT) 24 U/L (15-37); BICARBONATE 21.3 MEQ/L (21.0-32.0); BLOOD UREA NITROGEN 7 MG/DL (7-18); CALCIUM 8.1 MG/DL (8.5-10.1); CHLORIDE 108 MEQ/L (98-107); CREATININE 0.54 MG/DL (0.50-1.00); GLOMERULAR FILTRATION RATE 133 ML/MIN (>89); GLUCOSE,RANDOM 53 MG/DL (74-106); SODIUM (NA) 138 MEQ/L (136-145)
[2017-11-23] MEDS ORDERED: ePHEDrine/NS 25 MG/5 ML SYRINGE IV PUSH PRN (13:15)
[2017-11-23] MEDS: fentaNYL 2MCG-BUPIV 0.125% 100 ML EPIDURAL SCH ×2 (13:37→18:48)
[2017-11-23] MEDS ORDERED: NO SYSTEM NARCOTICS PRN (14:00)
[2017-11-23] MEDS ORDERED: DO NOT ADMINISTER ANTICOAGULANTS PRN (14:00)
[2017-11-23] MEDS ORDERED: DIPHTH/TETANUS/ACEL PERTUSSIS (BOOSTER) 0.5 ML VIAL/PFS IM ONE (16:00)
[2017-11-23] MEDS ORDERED: MEASLES, MUMPS, RUBELLA VACCINE 0.5 ML VIAL SQ ONE (16:00)
--- NOTE | 2017-11-23 22:22 | PD.OB.DELI ---
Weeks gestation: 39 Gest age assessed date: Nov 23, 2017 Gest age assessed time: 08:00 Pt started active labor?: Yes Active labor start date: Nov 23, 2017 Active labor start time: 19:00 Medical induction of labor?: Yes Medical induction start date: Nov 23, 2017 Medical induction start time: 07:00 Artificial rupture of membrane: No Anesthesia: Epidural Episiotomy: None Vaginal Delivery: Normal Presentation: Occiput anterior Nuchal Cord: None Delayed cord clamping (45 sec): Yes Infant: Male Delivery date: Nov 23, 2017 Delivery time: 22:06 Weight: 3260 gm Placenta: Spontaneous delivery Laceration: Perineal laceration, 1 deg Repair: Chromic running Estimated blood loss: 100 cc Karl Davis II, MD Nov 23, 2017 22:22
[2017-11-23] MEDS ORDERED: BENZOCAINE 20% TOPICAL SPRAY 60 ML CAN TOPICAL PRN (22:30)
[2017-11-23] MEDS ORDERED: ONDANSETRON ODT 4 MG TAB PO PRN (22:30)
[2017-11-23] MEDS ORDERED: ZOLPIDEM TARTRATE 5 MG TAB PO PRN (22:30)
[2017-11-23] MEDS ORDERED: SODIUM CHLORIDE 0.9% FLUSH 10 ML FLUSH IV FLUSH PRN (22:30)
[2017-11-23] MEDS ORDERED: ALUMINUM/MAGNESIUM/SIMETH 30 ML CUP PO PRN (22:30)
[2017-11-23] MEDS ORDERED: OXYTOCIN 30 UNITS-500ML PREMIX 500 ML IV SCH (22:30)
[2017-11-23] MEDS ORDERED: DOCUSATE SODIUM 50 MG/SENNA 8.6 MG TAB PO PRN (22:30)
[2017-11-23] MEDS ORDERED: WITCH HAZEL 50%/GLYCERIN 12.5% 40 PAD JAR TOPICAL PRN (22:30)
[2017-11-23] MEDS ORDERED: ACETAMINOPHEN 325 MG TAB PO PRN (22:30)
[2017-11-24] VITALS: BP 136/108; PULSE 100; RESP 18
[2017-11-24] MEDS: IBUPROFEN 800 MG TAB PO PRN ×3 (00:45→18:22)
[2017-11-24] MEDS: oxyCODONE/ACETAMINOPHEN 5 MG/325 MG TAB PO PRN ×6 (00:45→20:58)
[2017-11-24 01:23] VITALS: BP 125/82; PULSE 82; RESP 18; TEMP 97.9; O2SAT 98
[2017-11-24 08:00] VITALS: BP 115/70; PULSE 75; RESP 15; TEMP 97.8; O2SAT 99
[2017-11-24] MEDS ORDERED: SODIUM CHLORIDE 0.9% FLUSH 10 ML FLUSH IV FLUSH SCH (09:00)
[2017-11-24] MEDS ORDERED: medroxyPROGESTERone ACETATE SUSP 150 MG/ML SYRINGE IM ONE (09:30)
--- NOTE | 2017-11-24 09:30 | HHI.OB ---
Subjective Post Day: 1 Remarks day # 1. AFVSS overnight. Pain well-controlled. Decreased lochia. Denies dysuria. No breast tenderness. She is feeding the baby via breast. Appetite good. No nausea or vomiting. + flatus. 1 bowel movement. Ambulating well. Denies calf pain, shortness of breath, or cough. Otherwise, she is doing well this morning and has no other complaints. Objective Vitals/I&O Vital Signs Date Time Temp Pulse Resp B/P (MAP) Pulse Ox O2 Delivery O2 Flow Rate FiO2 11/24/17 01:23 97.9 82 18 125/82 (96) 98 11/24/17 00:00 100 136/108 (117) 11/24/17 00:00 18 11/23/17 23:45 70 128/82 (97) 11/23/17 23:45 18 11/23/17 23:30 78 18 121/82 (95) 11/23/17 23:30 98.1 11/23/17 23:15 84 126/84 (98) 11/23/17 23:00 18 11/23/17 23:00 79 124/88 (100) 11/23/17 22:45 96 122/94 (103) 11/23/17 22:31 88 124/64 (84) 11/23/17 22:19 90 126/88 (101) 11/23/17 22:17 124 167/127 (140) 11/23/17 22:15 98.4 18 11/23/17 22:15 18 11/23/17 22:01 88 155/122 (133) 11/23/17 21:45 80 11/23/17 21:45 131/85 (100) 11/23/17 21:30 141/91 (108) 11/23/17 21:30 90 11/23/17 21:01 72 119/69 (86) 11/23/17 20:30 80 119/88 (98) 11/23/17 20:00 68 105/71 (82) 11/23/17 19:30 98.2 11/23/17 19:30 75 118/77 (91) 11/23/17 19:30 18 11/23/17 19:01 76 111/65 (80) 11/23/17 18:48 18 11/23/17 18:31 80 126/82 (97) 11/23/17 18:00 79 115/70 (85) 11/23/17 17:30 98.1 18 11/23/17 17:30 79 113/80 (91) 11/23/17 17:00 81 112/76 (88) 11/23/17 16:31 54 123/72 (89) 11/23/17 16:02 75 96/74 (81) 11/23/17 15:30 18 11/23/17 15:30 98.3 86 117/81 (93) 11/23/17 15:01 88 118/67 (84) 11/23/17 14:30 63 11/23/17 14:30 58 113/75 (88) 11/23/17 14:25 66 11/23/17 14:20 76 11/23/17 14:15 80 11/23/17 14:10 85 11/23/17 14:05 62 11/23/17 14:00 66 11/23/17 14:00 62 123/76 (92) 11/23/17 13:55 70 11/23/17 13:50 74 11/23/17 13:45 61 11/23/17 13:40 78 11/23/17 13:37 18 11/23/17 13:35 77 11/23/17 13:30 98.1 18 11/23/17 13:30 59 117/80 (92) 11/23/17 13:30 75 11/23/17 13:25 64 11/23/17 13:20 64 11/23/17 13:19 64 121/84 (96) 11/23/17 13:15 68 11/23/17 13:10 56 11/23/17 13:10 73 118/74 (89) 11/23/17 13:05 64 11/23/17 13:05 67 115/73 (87) 11/23/17 13:00 66 113/84 (94) 11/23/17 13:00 71 11/23/17 12:56 72 17 132/84 (100) 11/23/17 12:55 74 11/23/17 12:00 77 124/84 (97) 11/23/17 12:00 98.0 11/23/17 11:30 77 131/83 (99) 11/23/17 11:00 98.2 18 11/23/17 11:00 67 110/60 (77) 11/23/17 11:00 97.8 11/23/17 10:16 73 120/76 (91) Objective Remarks GENERAL: Well-nourished, well-developed patient. CARDIOVASCULAR: Regular rate and rhythm without murmurs, gallops, or rubs. RESPIRATORY: Breath sounds equal bilaterally. No accessory muscle use. ABDOMEN/GI: Abdomen soft, non-tender. Fundus: Firm, non-tender at umbilicus. GENITOURINARY: Light to moderate bleeding. EXTREMITIES: No cyanosis or edema, non-tender, without signs of DVT. Medications and IVs Current Medications Medications (Trade) Dose Ordered Sig/Moon Route Start Time Stop Time Status Last Admin Lactated Ringer's 1,000 ml @ 125 mls/hr Q8H IV 11/23/17 08:56 11/23/17 13:37 Lactated Ringer's 1,000 ml @ 3,000 mls/hr Q20M PRN IV 11/23/17 08:56 Sodium Chloride 1,000 ml @ 100 mls/hr Q10H PRN IV 11/23/17 09:16 (Xylocaine 1% Inj (50 ml)) 0.1 ml UNSCH X1 PRN I-DERMAL 11/23/17 09:00 11/26/17 08:59 (Bicitra Liq) 30 ml DIE REPAIRER FORGING PO 11/23/17 09:00 11/27/17 08:59 (Zofran Inj) 4 mg Q6H PRN IV PUSH 11/23/17 09:00 11/23/17 12:57 (fentaNYL INJ) 50 mcg Q1H PRN IV PUSH 11/23/17 09:00 (fentaNYL INJ) 100 mcg Q1H PRN IV PUSH 11/23/17 09:00 11/23/17 11:34 (Xylocaine 1% Inj (50 ml)) 10 ml UNSCH X1 PRN INFIL 11/23/17 09:00 11/25/17 08:59 (Muri-Lube Oil) 10 ml UNSCH PRN TOPICAL 11/23/17 09:00 Oxytocin 500 ml @ 0 mls/hr TITRATE PRN IV 11/23/17 09:15 11/23/17 09:48 Miscellaneous Information No systemic narcotics to be given except... UNSCH PRN .XX 11/23/17 14:00 11/24/17 13:59 Miscellaneous Information DO NOT ADMINISTER ANY ANTICOAGUL... UNSCH PRN .XX 11/23/17 14:00 11/24/17 13:59 Fentanyl/ Bupivacaine HCl 100 ml @ 0 mls/hr TITRATE EPIDURAL 11/23/17 14:00 11/23/17 18:48 (ePHEDrine/NS 25 MG/5 ML SYR) 10 mg UNSCH PRN IV PUSH 11/23/17 13:15 11/24/17 13:14 (NS Flush) 2 ml BID IV FLUSH 11/24/17 09:00 (NS Flush) 2 ml UNSCH PRN IV FLUSH 11/23/17 22:30 (Tylenol) 650 mg Q4H PRN PO 11/23/17 22:30 (Motrin) 800 mg Q8H PRN PO 11/23/17 22:30 11/24/17 09:04 (Percocet 5-325 Mg) 1 tab Q4H PRN PO 11/23/17 22:30 11/24/17 09:03 (Americaine 20% Top Spr) 1 spray Q4H PRN TOPICAL 11/23/17 22:30 11/24/17 05:00 (Tucks Pads) 1 applic QID PRN TOPICAL 11/23/17 22:30 11/24/17 05:00 (Karie-Colace) 2 tab Q12H PRN PO 11/23/17 22:30 11/24/17 05:00 (Ambien) 5 mg HS PRN PO 11/23/17 22:30 (Mag-Al Plus Susp Liq) 15 ml Q8H PRN PO 11/23/17 22:30 (Zofran Odt) 4 mg Q6H PRN PO 11/23/17 22:30 Assessment/Plan Problem List: (1) Leakage of amniotic fluid ICD Codes: O42.90 - Premature rupture of membranes, unspecified as to length of time between rupture and onset of labor, unspecified weeks of gestation Status: Acute (2) Hx of seizure disorder ICD Codes: Z86.69 - Personal history of other diseases of the nervous system and sense organs Status: Chronic (3) Lupus ICD Codes: L93.0 - Discoid lupus erythematosus Status: Chronic (4) Vaginal delivery ICD Codes: O80 - Encounter for full-term uncomplicated delivery Status: Acute Assessment and Plan 31 y/o who is PPD# 1 s/p . -Continue routine care. -Percocet and Motrin PRN pain. -Encouraged OOB. Advised pelvic rest for 6 wks. -Will need a f/u appt. within 6 wks. -Re: ctrl, she would like DepoProvera. -D/c in 1-2 more days. wdw OB attending Seizure Disorder -Will monitor for seizure activity -restart at home Román Lupus -Pt will discuss with PCP about restarting medications Alicia Velásquez MD R1 Nov 24, 2017 09:30
[2017-11-24] MEDS: SERTRALINE HCL 50 MG TAB PO SCH (13:35)
[2017-11-24] MEDS: levETIRAcetam 250 MG TAB PO SCH ×2 (13:36→20:58)
[2017-11-24 20:00] VITALS: BP 140/80; PULSE 67; RESP 18; TEMP 97.5; O2SAT 99
[2017-11-24] MEDS: methylPREDNISolone SOD SUCC 40 MG/1 ML VIAL IV PUSH SCH (20:59)
[2017-11-25] MEDS: LACTATED RINGER'S 1000 ML INJ 1,000 ML IV SCH (00:56)
[2017-11-25] MEDS: methylPREDNISolone SOD SUCC 40 MG/1 ML VIAL IV PUSH SCH ×3 (01:22→11:45)
[2017-11-25] MEDS: oxyCODONE/ACETAMINOPHEN 5 MG/325 MG TAB PO PRN ×2 (02:59→09:47)
[2017-11-25] MEDS: IBUPROFEN 800 MG TAB PO PRN ×2 (02:59→11:45)
[2017-11-25 08:00] VITALS: BP 121/80; PULSE 62; RESP 16; TEMP 98
[2017-11-25] MEDS ORDERED: PERI PO (08:31)
[2017-11-25] MEDS ORDERED: IBUP1TAB7 PO (08:31)
--- NOTE | 2017-11-25 09:34 | HHI.OB ---
Subjective Post Day: 2 Remarks day # 2. AFVSS overnight. Pain well-controlled. Decreased lochia. Denies dysuria. No breast tenderness. She is feeding the baby via breast/ bottle. Appetite good. No nausea or vomiting. + flatus. had a bowel movement. Ambulating well. Denies calf pain, shortness of breath, or cough. Otherwise, she is doing well this morning and has no other complaints. Objective Vitals/I&O Vital Signs Date Time Temp Pulse Resp B/P (MAP) Pulse Ox O2 Delivery O2 Flow Rate FiO2 11/24/17 20:00 97.5 11/24/17 20:00 67 18 140/80 (100) 99 Objective Remarks GENERAL: Well-nourished, well-developed patient. CARDIOVASCULAR: Regular rate and rhythm without murmurs, gallops, or rubs. RESPIRATORY: Breath sounds equal bilaterally. No accessory muscle use. ABDOMEN/GI: Abdomen soft, non-tender. Fundus: Firm, non-tender at umbilicus. GENITOURINARY: Light to moderate bleeding. EXTREMITIES: No cyanosis or edema, non-tender, without signs of DVT. Medications and IVs Current Medications Medications (Trade) Dose Ordered Sig/Moon Route Start Time Stop Time Status Last Admin Lactated Ringer's 1,000 ml @ 125 mls/hr Q8H IV 11/23/17 08:56 11/23/17 13:37 Lactated Ringer's 1,000 ml @ 3,000 mls/hr Q20M PRN IV 11/23/17 08:56 Sodium Chloride 1,000 ml @ 100 mls/hr Q10H PRN IV 11/23/17 09:16 (Xylocaine 1% Inj (50 ml)) 0.1 ml UNSCH X1 PRN I-DERMAL 11/23/17 09:00 11/26/17 08:59 (Bicitra Liq) 30 ml LABORATORY ANALYST PO 11/23/17 09:00 11/27/17 08:59 (Zofran Inj) 4 mg Q6H PRN IV PUSH 11/23/17 09:00 11/23/17 12:57 (fentaNYL INJ) 50 mcg Q1H PRN IV PUSH 11/23/17 09:00 (fentaNYL INJ) 100 mcg Q1H PRN IV PUSH 11/23/17 09:00 11/23/17 11:34 (Muri-Lube Oil) 10 ml UNSCH PRN TOPICAL 11/23/17 09:00 Oxytocin 500 ml @ 0 mls/hr TITRATE PRN IV 11/23/17 09:15 11/23/17 09:48 Fentanyl/ Bupivacaine HCl 100 ml @ 0 mls/hr TITRATE EPIDURAL 11/23/17 14:00 11/23/17 18:48 (NS Flush) 2 ml BID IV FLUSH 11/24/17 09:00 11/24/17 22:05 (NS Flush) 2 ml UNSCH PRN IV FLUSH 11/23/17 22:30 (Tylenol) 650 mg Q4H PRN PO 11/23/17 22:30 (Motrin) 800 mg Q8H PRN PO 11/23/17 22:30 11/25/17 02:59 (Percocet 5-325 Mg) 1 tab Q4H PRN PO 11/23/17 22:30 11/24/17 18:22 (Americaine 20% Top Spr) 1 spray Q4H PRN TOPICAL 11/23/17 22:30 11/24/17 05:00 (Tucks Pads) 1 applic QID PRN TOPICAL 11/23/17 22:30 11/24/17 05:00 (Karie-Colace) 2 tab Q12H PRN PO 11/23/17 22:30 11/24/17 05:00 (Ambien) 5 mg HS PRN PO 11/23/17 22:30 (Mag-Al Plus Susp Liq) 15 ml Q8H PRN PO 11/23/17 22:30 (Zofran Odt) 4 mg Q6H PRN PO 11/23/17 22:30 11/24/17 20:58 (Keppra) 250 mg BID PO 11/24/17 09:30 11/24/17 20:58 (Zoloft) 50 mg DAILY PO 11/24/17 09:45 11/24/17 13:35 (SoluMEDROL INJ) 40 mg Q6HR IV PUSH 11/24/17 18:00 11/25/17 06:24 (Percocet 5-325 Mg) 2 tab Q6H PRN PO 11/24/17 20:30 11/25/17 02:59 Assessment/Plan Problem List: (1) Leakage of amniotic fluid ICD Codes: O42.90 - Premature rupture of membranes, unspecified as to length of time between rupture and onset of labor, unspecified weeks of gestation Status: Acute (2) Hx of seizure disorder ICD Codes: Z86.69 - Personal history of other diseases of the nervous system and sense organs Status: Chronic (3) Lupus ICD Codes: L93.0 - Discoid lupus erythematosus Status: Chronic (4) Vaginal delivery ICD Codes: O80 - Encounter for full-term uncomplicated delivery Status: Acute Assessment and Plan 31 y/o who is PPD# 2 s/p . -Continue routine care. -Percocet and Motrin PRN pain. -Encouraged OOB. Advised pelvic rest for 6 wks. -Will need a f/u appt. within 6 wks. -Re: ctrl, she would like DepoProvera. -D/c today. wdw OB attending Seizure Disorder -Will monitor for seizure activity -restart at home Román Lupus -Currently having a flare, consulted hospitalist group -Methylprednisolone 40mg IV q6h -Pt will discuss with PCP about restarting medications Alicia Velásquez MD R1 Nov 25, 2017 09:34
--- NOTE | 2017-11-25 09:39 | HHI.DCPOC ---
Discharge Care Plan Diagnosis: (1) Vaginal delivery Report Symptoms to Your Doctor -Temperature above 100.5 degrees -Redness, of incision or excessive or foul smelling drainage -Unusual pain or calf pain -Increased vaginal bleeding -Painful or difficulty urinating -Feelings of extreme sadness or anxiety after 2 weeks Goals to Promote Your Health * To prevent worsening of your condition and complications * To maintain your health at the optimal level Directions to Meet Your Goals Take your medications as prescribed Follow your dietary instruction Follow activity as directed Ensure plenty of rest for recovery Drink fluids for hydration Keep your appointments as scheduled Take your immunizations and boosters as scheduled If your symptoms worsen call your PCP, if no PCP go to Urgent Care Center or Emergency Room Smoking is Dangerous to Your Health. Avoid second hand smoke Call the 24-hour crisis hotline for domestic abuse at Alicia Velásquez MD R1 Nov 25, 2017 09:39
[2017-11-25] MEDS ORDERED: medroxyPROGESTERone ACETATE SUSP 150 MG/ML SYRINGE IM SCH (09:45)
[2017-11-25] MEDS: SERTRALINE HCL 50 MG TAB PO SCH (09:46)
[2017-11-25] MEDS: levETIRAcetam 250 MG TAB PO SCH (09:46)
[2017-11-25] MEDS ORDERED: PRED10PA PO (10:03)
--- NOTE | 2017-11-25 10:14 | PD.CONS ---
HPI Service [facility] Hospitalists Consult Requested By Dr. Velásquez Reason for Consult Lupus flare, seizure disorder Primary Care Physician Non-Staff Diagnoses: (1) Seizure disorder (2) Lupus (systemic lupus erythematosus) (3) Vaginal delivery History of Present Illness 31-year-old female with a medical history significant for SLE, rheumatoid arthritis, seizure disorder admitted to the hospital for vaginal delivery. After her delivery, the patient started to have a rash and diffuse joint pains which she reports is typical for her lupus flare. She also has a history of seizure disorder. Last seizure was about a year ago while she was driving. She has been on Keppra which she admits she does not take consistently every day. She also reported a history of rheumatoid arthritis. She was previously on methotrexate and Plaquenil for SLE but has been out of these medications since the start of her . The patient was started on IV Solu-Medrol and currently the rash has resolved. Diffuse joint pain is markedly improved. Review of Systems Constitutional: DENIES: Fever, Chills Respiratory: DENIES: Wheezing, Shortness of breath Musculoskeletal: COMPLAINS OF: Joint pain, DENIES: Stiffness, Joint Swelling Integumentary: COMPLAINS OF: Rash Except as stated in HPI: all other systems reviewed are Neg Past Family Social History Allergies: Coded Allergies: Sulfa (Sulfonamide Antibiotics) (Unverified Allergy, Unknown, 11/10/17) Past Medical History SLE Rheumatoid arthritis Seizure disorder Past Surgical History Cholecystectomy Reported Medications Reported Meds & Active Scripts Active Prednisone (21) 10 mg tab Dose Pack (Prednisone) 10 Mg Pack 10 Mg PO DIRECTED Phenergan (Promethazine HCl) 25 Mg Tablet 25 Mg PO Q6H PRN Amoxicillin 875 Mg Tab 875 Mg PO BID Keppra (Levetiracetam) 250 Mg Tab 250 Mg PO BID Citranatal [place] ( W/O Vit A W/ Fe Fumar) 27-1-260 Mg Cap 1 Cap PO DAILY Reported Aspirin 81 Mg Chew 81 Mg CHEW DAILY Ferrous Sulfate 325 Mg (65 Mg Iron) Tablet 325 Mg PO DAILY Folic Acid 0.4 Mg Tab 3 Mg PO DAILY Family History Mother in her late 40s from heart disease Father with history of heart disease Social History Patient admits to smoking a couple of cigarettes a day on and off No alcohol use No illicit drug use Physical Exam Vital Signs Vital Signs Date Time Temp Pulse Resp B/P (MAP) Pulse Ox O2 Delivery O2 Flow Rate FiO2 11/24/17 20:00 97.5 11/24/17 20:00 67 18 140/80 (100) 99 Physical Exam GENERAL: This is a well-nourished, well-developed patient, in no apparent distress. SKIN: No rashes, ecchymoses or lesions. Cool and dry. HEAD: Atraumatic. Normocephalic. No temporal or scalp tenderness. EYES: Pupils equal round and reactive. Extraocular motions intact. No scleral icterus. No injection or drainage. ENT: Nose without bleeding, purulent drainage or septal hematoma. Throat without erythema, tonsillar hypertrophy or exudate. Uvula midline. Airway patent. NECK: Trachea midline. No JVD or lymphadenopathy. Supple, nontender, no meningeal signs. CARDIOVASCULAR: Regular rate and rhythm without murmurs, gallops, or rubs. RESPIRATORY: Clear to auscultation. Breath sounds equal bilaterally. No wheezes , rales, or rhonchi. GASTROINTESTINAL: Abdomen soft, appropriately tender. No guarding. MUSCULOSKELETAL: Extremities without clubbing, cyanosis, or edema. No joint tenderness, effusion, or edema noted. No calf tenderness. Negative Homans sign bilaterally. NEUROLOGICAL: Awake and alert. Cranial nerves II through XII intact. Motor and sensory grossly within normal limits. Five out of 5 muscle strength in all muscle groups. Normal speech. Laboratory Date/Time Source Procedure Growth Status 11/23/17 09:15 Genital Genital Region Group B Streptococcus Screen - Preliminary RESULTS PENDING Resulted Result Diagram: 11/23/1715 11/23/17 0915 Assessment and Plan Problem List: (1) Lupus (systemic lupus erythematosus) ICD Code: M32.9 - Systemic lupus erythematosus, unspecified Plan: Flare manifested by skin rash and diffuse joint pain. Typical per the patient. Symptoms are resolving with IV Solu-Medrol. Recommend a prednisone taper and she can be discharged home. Patient advised to follow-up outpatient with PCP for referral to rheumatology to consider disease modifying agents if she continues to have flareups. For now advised against Methotrexate and Plaquenil as the risk outweighed the benefits given that she is breast-feeding. (2) Seizure disorder ICD Code: G40.909 - Epilepsy, unspecified, not intractable, without status epilepticus Plan: Last seizure about a year ago. Patient admits to not being consistent with taking Keppra. Counseled the patient at length about the need to take her seizure medications as prescribed. We both agreed that the benefit outweigh the risk for this medication. She is aware that a very small amount of this medication may leak into the breast milk. (3) Vaginal delivery ICD Code: O80 - Encounter for full-term uncomplicated delivery Status: Acute Discussed Condition With Patient and RN. Patient is clear for discharge from my standpoint. Tray Benedict MD Nov 25, 2017 10:14
[2017-11-25] MEDS ORDERED: TRIAM.1%T TOPICAL (14:00)
[2017-11-26] MEDS ORDERED: SERT-132 PO (14:17)
== END 2017-11-25 14:45 | disposition home or self-care (01) | DRG 775 ==
LOC: HOBED 08:12 → H2EB 08:53 → H1EA 11-24 01:20
PROVIDERS: ADMIT Obstetrics & Gynecology; ATTEND Obstetrics & Gynecology
PROC: 10E0XZZ Delivery of Products of Conception, External Approach (ICD-10-PCS; principal; 2017-11-23)
PROC: 0HQ9XZZ Repair Perineum Skin, External Approach (ICD-10-PCS; 2017-11-23)
DX: O42.02 Full-term premature rupture of membranes, onset of labor within 24 hours of rupture (principal); M32.9 Systemic lupus erythematosus, unspecified; O99.354 Diseases of the nervous system complicating childbirth; G40.909 Epilepsy, unspecified, not intractable, without status epilepticus; O99.12 Other diseases of the blood and blood-forming organs and certain disorders involving the immune mechanism complicating childbirth; O70.0 First degree perineal laceration during delivery; M06.9 Rheumatoid arthritis, unspecified; O99.334 Smoking (tobacco) complicating childbirth; F17.210 Nicotine dependence, cigarettes, uncomplicated; Z37.0 Single live birth; Z3A.39 39 weeks gestation of pregnancy
CPT/HCPCS: 59025; 80053; 80307; 81001; 84112; 85025; 86850; 86900; 86901; 87081; 87150; 87491; 87591; 90715; J1050; J2405; J2590; J2920; J3010; J7120

== ENCOUNTER → 2018-01-14 | Day surgery (SDC) | payer OTHER ==
--- NOTE | 2018-01-13 15:06 | MH ---
cc: Loc Izaguirre MD DATE OF ADMISSION: 01/14/2018 This patient is a 32-year-old white female. 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 HISTORY OF PRESENT ILLNESS: The patient is well known to our practice. She was recently seen for an evaluation of high-grade squamous intraepithelial lesion. We discussed different modes of therapy and we will proceed with loop electrical excision procedure. The risks of the procedure were discussed at length. GYNECOLOGICAL HISTORY: Significant that she is on Depo-Provera for control. PAST MEDICAL HISTORY: Her medical history is significant in that patient has a history of systemic lupus and a history of seizure disorder. ALLERGIES: SHE DESCRIBES ALLERGIES TO SULFA, ANTIBIOTICS. SOCIAL HISTORY: She is a smoker and continues to smoke every day for the last 10 years. REVIEW OF SYSTEMS: Essentially noncontributory. PHYSICAL EXAMINATION: GENERAL: The patient is seen well-developed, well-nourished, in no acute distress. VITAL SIGNS: Blood pressure was 99/61, pulse is 70, respirations are 12. HEENT: Negative. CHEST: Clear to auscultation. CARDIOVASCULAR: Revealed a regular rate. ABDOMEN: Soft. Bowel sounds are positive. PELVIC: On pelvic examination, the uterus is normal in size. There is no adnexal masses palpable. External genitalia was within normal limits. EXTREMITIES: Reveal no cyanosis, clubbing, or edema. NEUROPSYCHIATRIC: The patient is oriented x 3 and shows no gross neurocranial deficits. 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 PLAN: Loop electrical excision procedure. Loc Izaguirre MD JSG/TL , 01:54 PM , 02:14 PM
[~2018-01-14] VITALS: Ht 167.6 cm; Wt 53.5 kg
[~2018-01-14] MED LIST changes: -AMOX875T PO; -AZIT250T3 PO; +CEFAZOLIN INJ 2,000 MG in SODIUM CHLORIDE 0.9% INJ 100 ML IV SCH; +CHLORHEXIDINE GLUCONATE 2 % 1 PACK (2 CLOTHS) TOPICAL PRN; +CYMB30CA PO; +DEXAMETHASONE SOD PHOS 4 MG/ML VIAL IV ONE; +DO NOT ADM ANY ANTICOAGULANT DRUGS PRN; +IBUP1TAB7 PO; +KETOROLAC TROMETHAMINE 30 MG/ML (IVP) VIAL IV PUSH ONE; +LACTATED RINGER'S 1000 ML IV PRN; +LIDOCAINE HCL 1% PF 5 ML SYRINGE OTHER ONE; +METOPROLOL TARTRATE 25 MG TAB PO PRN; +ONDANSETRON HCL 4 MG/2 ML VIAL IV ONE; +PERI PO; +POVIDONE IODINE 5% (ANTISEPSIS KIT) 4 APPLICATIONS EACH NARE PRN; +PRED10PA PO; -PREN1CAP7 PO; +PROPOFOL 200 MG/20 ML AMP IV ONE; +SERT-132 PO; +SODIUM CHLORID 0.9% 500 ML IV PRN; +TRIAM.1%T TOPICAL; +fentaNYL CITRATE 250 MCG/5 ML AMP ONE
--- NOTE | 2018-01-14 07:58 | MP ---
cc: Loc Izaguirre MD DATE OF OPERATION: 01/14/2018 PREOPERATIVE DIAGNOSIS: High grade dysplasia. POSTOPERATIVE DIAGNOSIS: High grade dysplasia. OPERATION: Loop electrical excision procedure using a two stage technique. SURGEON: Loc Izaguirre MD. ANESTHESIA: General. ESTIMATED BLOOD LOSS: Minimal. FINDINGS: None. COMPLICATIONS: None. OLIVE PACKER: None. PROCEDURE: The patient prepped and draped in the dorsal lithotomy position. A weighted speculum was placed in the posterior vaginal vault and the anterior lip of the cervix grasped with a single-tooth tenaculum. Using medium sized wire loops, the transformation zone was excised and then using a smaller sized wire loop, a small portion of the endocervical canal was removed. The ball electrode was used for hemostasis. After hemostasis was performed, the tenaculum and speculum were removed. The patient returned to the recovery room in stable condition. Loc Izaguirre MD JSG/DL , 07:35 AM , 07:58 AM
[2018-01-14 08:35] VITALS: BP 126/69; PULSE 79; RESP 20; TEMP 98.6; O2SAT 97
== END | disposition home or self-care (01) ==
LOC: HSDC 05:33
PROVIDERS: ATTEND Obstetrics & Gynecology
DX: R87.613 High grade squamous intraepithelial lesion on cytologic smear of cervix (HGSIL) (principal); M32.9 Systemic lupus erythematosus, unspecified; G40.909 Epilepsy, unspecified, not intractable, without status epilepticus; Z88.2 Allergy status to sulfonamides
CPT/HCPCS: 00940; 57522; 88305; J0690; J1100; J1885; J2405; J3010; J7120

== ENCOUNTER 2018-02-06 10:08 | Emergency (ER) | payer OTHER ==
[~2018-02-06] VITALS: Ht 167.6 cm; Wt 55.0 kg
[~2018-02-06 10:08] MED LIST changes: -CEFAZOLIN INJ 2,000 MG in SODIUM CHLORIDE 0.9% INJ 100 ML IV SCH; -CHLORHEXIDINE GLUCONATE 2 % 1 PACK (2 CLOTHS) TOPICAL PRN; -DEXAMETHASONE SOD PHOS 4 MG/ML VIAL IV ONE; -DO NOT ADM ANY ANTICOAGULANT DRUGS PRN; -FERR325T18 PO; -IBUP1TAB7 PO; -KETOROLAC TROMETHAMINE 30 MG/ML (IVP) VIAL IV PUSH ONE; -LACTATED RINGER'S 1000 ML IV PRN; -LIDOCAINE HCL 1% PF 5 ML SYRINGE OTHER ONE; -METOPROLOL TARTRATE 25 MG TAB PO PRN; -ONDANSETRON HCL 4 MG/2 ML VIAL IV ONE; -PERI PO; -POVIDONE IODINE 5% (ANTISEPSIS KIT) 4 APPLICATIONS EACH NARE PRN; -PROM25TA10 PO; -PROPOFOL 200 MG/20 ML AMP IV ONE; -SERT-132 PO; -SODIUM CHLORID 0.9% 500 ML IV PRN; -fentaNYL CITRATE 250 MCG/5 ML AMP ONE
[2018-02-06 10:18] VITALS: BP 169/94; PULSE 127; RESP 28; TEMP 98.4; O2SAT 97
[2018-02-06] MEDS ORDERED: LORazepam 2 MG/ML VIAL IV PUSH ONE (10:30)
[2018-02-06] MEDS ORDERED: CYMB60CA PO (10:30)
[2018-02-06] MEDS ORDERED: VIST50CA PO (10:32)
--- NOTE | 2018-02-06 10:32 | PD ---
HPI Chief Complaint: Anxiety Time Seen by Provider: 10:18 Travel History International Travel<30 days: No Contact w/Intl Traveler<30days: No Traveled to known affect area: No History of Present Illness HPI 32-year-old female complains of anxiety, restless and body twitching. Patient states that his symptoms started this morning. Patient has history of PTSD, SLE , rheumatoid arthritis, seizure disorder. Patient states that she has not taken her psychiatric medications for the past few days. Patient started having severe anxiety and twitching of the body this morning and EMS was called. Patient was brought to ED for evaluation. Patient was wheezing and complaint of shortness of breath. Patient was given albuterol treatment and some Medrol IV on the way to ED. Patient denies any headache. Patient complains of mild shortness of breath. Patient denies abdominal pain. Patient denies any nausea vomiting diarrhea. Patient denies any alcohol or drug abuse. PFSH Past Medical History Cardiovascular Problems: Yes (HTN, CARDIOMEGALY) Diminished Hearing: No Hypertension: Yes Immune Disorder: Yes (LUPUS) Immunizations Current: Yes Seizures: Yes ?: Not : 1 Para: 0 Past Surgical History Abdominal Surgery: Yes (CHOLEYCYSTECTOMY) Cholecystectomy: Yes Social History Alcohol Use: No Tobacco Use: Yes Substance Use: No Allergies-Medications (Allergen,Severity, Reaction): Coded Allergies: Sulfa (Sulfonamide Antibiotics) (Unverified Allergy, Unknown, 01/14/18) Reported Meds & Prescriptions Reported Meds & Active Scripts Active Keppra (Levetiracetam) 250 Mg Tab 250 Mg PO BID Reported Vistaril (Hydroxyzine Pamoate) 50 Mg Cap 50 Mg PO TID Cymbalta DR (Duloxetine HCl) 60 Mg Capdr 60 Mg PO DAILY Review of Systems General / Constitutional: No: Fever Eyes: No: Visual changes HENT: No: Headaches Cardiovascular: No: Chest Pain or Discomfort Respiratory: Positive: Shortness of Breath Gastrointestinal: No: Abdominal Pain Genitourinary: No: Dysuria Musculoskeletal: No: Pain Skin: No Rash Neurologic: No: Weakness Psychiatric: No: Depression Endocrine: No: Polydipsia Hematologic/Lymphatic: No: Easy Bruising Physical Exam Narrative GENERAL: Well-nourished, well-developed patient. SKIN: Focused skin assessment warm/dry. HEAD: Normocephalic. EYES: No scleral icterus. No injection or drainage. NECK: Supple, trachea midline. No JVD or lymphadenopathy. CARDIOVASCULAR: Regular rate and rhythm without murmurs, gallops, or rubs. RESPIRATORY: Breath sounds equal bilaterally. No accessory muscle use. GASTROINTESTINAL: Abdomen soft, non-tender, nondistended. MUSCULOSKELETAL: No cyanosis, or edema. BACK: Nontender without obvious deformity. No CVA tenderness. Neurologic exam: Patient is awake and alert oriented 3. Patient is restless with movement of all the extremity continuously. Data Data Last Documented VS Vital Signs Date Time Temp Pulse Resp B/P (MAP) Pulse Ox O2 Delivery O2 Flow Rate FiO2 02/06/18 10:18 98.4 127 28 169/94 (119) 97 Orders Orders Complete Blood Count With Diff (02/06/18 10:25) Comprehensive Metabolic Panel (02/06/18 10:25) Urinalysis - C+S If Indicated (02/06/18 10:25) Thyroid Stimulating Hormone (02/06/18 10:25) Chest, Single Ap (02/06/18 10:25) Iv Access Insert/Monitor (02/06/18 10:25) Ecg Monitoring (02/06/18 10:25) Oximetry (02/06/18 10:25) Drug Screen, Random Urine (02/06/18 10:25) Alcohol (Ethanol) (02/06/18 10:25) Lorazepam Inj (Ativan Inj) (02/06/18 10:30) Labs Laboratory Tests Test 02/06/18 10:35 White Blood Count 10.4 TH/MM3 Red Blood Count 4.76 MIL/MM3 Hemoglobin 13.8 GM/DL Hematocrit 41.2 % Mean Corpuscular Volume 86.4 FL Mean Corpuscular Hemoglobin 29.0 PG Mean Corpuscular Hemoglobin Concent 33.6 % Red Cell Distribution Width 13.6 % Platelet Count 240 TH/MM3 Mean Platelet Volume 8.9 FL Neutrophils (%) (Auto) 37.7 % Lymphocytes (%) (Auto) 44.8 % Monocytes (%) (Auto) 11.5 % Eosinophils (%) (Auto) 4.8 % Basophils (%) (Auto) 1.2 % Neutrophils # (Auto) 3.9 TH/MM3 Lymphocytes # (Auto) 4.7 TH/MM3 Monocytes # (Auto) 1.2 TH/MM3 Eosinophils # (Auto) 0.5 TH/MM3 Basophils # (Auto) 0.1 TH/MM3 CBC Comment DIFF FINAL Differential Comment MDM Medical Decision Making Medical Screen Exam Complete: Yes Emergency Medical Condition: Yes Differential Diagnosis Differential diagnosis including acute anxiety, PTSD, side effect of medications , substance abuse. Narrative Course 32-year-old female with complaints of anxiety and restlessness and taking of the extremity. History of PTSD. Ativan 1 mg IV given. 11:05 AM. I was informed by my nurse that patient wants to leave. Patient refused further treatment and wants to sign AMA. Diagnosis Primary Impression: Acute anxiety Additional Instructions: Patient refused further treatment. Patient leaves AMA. Disposition: 07 AGAINST MEDICAL ADVICE Condition: Chuy Berry MD Feb 06, 2018 10:31
[2018-02-06 10:55] LABS: AUTOMATED NEUTROPHIL # 3.9 TH/MM3 (1.8-7.7); BASOPHIL # 0.1 TH/MM3 (0-0.2); BASOPHIL % 1.2 % (0.0-2.0); EOSINOPHIL # 0.5 TH/MM3 (0-0.4); EOSINOPHIL % 4.8 % (0.0-4.0); HEMATOCRIT 41.2 % (35.0-46.0); HEMOGLOBIN 13.8 GM/DL (11.6-15.3); LYMPH % 44.8 % (9.0-44.0); LYMPHOCYTE # 4.7 TH/MM3 (1.0-4.8); MEAN CELL VOLUME 86.4 FL (80.0-100.0); MEAN CORPUSCULAR HGB CONC 33.6 % (32.0-36.0); MEAN PLATELET VOLUME 8.9 FL (7.0-11.0); MONO % 11.5 % (0.0-8.0); MONOCYTE # 1.2 TH/MM3 (0-0.9); NEUT % 37.7 % (16.0-70.0); PLATELET COUNT 240 TH/MM3 (150-450); RED BLOOD COUNT 4.76 MIL/MM3 (4.00-5.30); RED CELL DISTRIBUTION WIDTH 13.6 % (11.6-17.2); WHITE BLOOD COUNT 10.4 TH/MM3 (4.0-11.0)
[2018-02-06 11:00] VITALS: BP 141/90; PULSE 112; RESP 25; O2SAT 99
[2018-02-06 11:12] LABS: ALBUMIN 3.6 GM/DL (3.4-5.0); ALT (GPT) 33 U/L (10-53); AST (GOT) 31 U/L (15-37); BICARBONATE 21.9 MEQ/L (21.0-32.0); BLOOD UREA NITROGEN 18 MG/DL (7-18); CALCIUM 8.4 MG/DL (8.5-10.1); CHLORIDE 109 MEQ/L (98-107); CREATININE 0.95 MG/DL (0.50-1.00); GLOMERULAR FILTRATION RATE 69 ML/MIN (>89); GLUCOSE,RANDOM 75 MG/DL (74-106); SODIUM (NA) 144 MEQ/L (136-145)
[2018-02-06 11:22] LABS: ALKALINE PHOSPHATASE 71 U/L (45-117); TOTAL BILIRUBIN ADULT 0.5 MG/DL (0.2-1.0); TOTAL PROTEIN 6.3 GM/DL (6.4-8.2)
== END 2018-02-06 11:05 | disposition left against medical advice (07) ==
LOC: NEPC 10:08
DX: F41.9 Anxiety disorder, unspecified (principal); R06.02 Shortness of breath; Z72.0 Tobacco use; Z79.899 Other long term (current) drug therapy
CPT/HCPCS: 80053; 80307; 84443; 85025; 96374; 99284; J2060

== ENCOUNTER 2018-10-02 21:47 | Observation (INO) ==
[2018-10-02] MEDS ORDERED: Sod Chloride 0.9% Inj 1,000 ML IV.SIG ONE (21:58)
[2018-10-02] MEDS ORDERED: Sod Chloride 0.9% Inj 1,000 ML IV.SIG SCH ×2 (22:00→23:30)
[2018-10-02] MEDS ORDERED: Ketamine Inj 50 MG/5 ML Syringe IV.PUSH ONE (22:00)
[2018-10-02 22:47] LABS: Baso # (Auto) 0.1 th/mm3 (0.0-0.2); Baso % (Auto) 0.6 % (0.0-2.0); Eos # (Auto) 0.2 th/mm3 (0.0-0.4); Eos % (Auto) 0.7 % (0.0-4.0); Hematocrit 43.7 % (35.0-46.0); Hemoglobin 14.6 gm/dL (11.6-15.3); Lymph # (Auto) 6.2 th/mm3 (1.0-4.8); Lymph % (Auto) 26.4 % (9.0-44.0); Mean Corpuscular HGB Conc 33.3 % (32.0-36.0); Mean Corpuscular Hemoglobin 28.8 pg (27.0-34.0); Mean Corpuscular Volume 86.4 fL (80.0-100.0); Mean Platelet Volume 8.7 fL (7.0-11.0); Mono # (Auto) 2.2 th/mm3 (0.0-0.9); Mono % (Auto) 9.5 % (0.0-8.0); Neut # (Auto) 14.7 th/mm3 (1.8-7.7); Neut % (Auto) 62.8 % (16.0-70.0); Platelet Count 307 th/mm3 (150-450); Red Blood Count 5.06 mil/mm3 (4.00-5.30); White Blood Count 23.4 th/mm3 (4.0-11.0)
[2018-10-02 22:50] LABS: Amphetamine Screen,Urine Pos (Neg); Barbiturate Screen,Urine Neg (Neg); Cannabinoid Screen,Urine Neg (Neg); Cocaine Screen,Urine Neg (Neg)
[2018-10-02 22:56] LABS: Alanine Aminotransferase 356 U/L (10-53); Albumin 3.8 g/dL (3.4-5.0); Anion Gap 11 meq/L (5-15); Aspartate Aminotransferase 171 U/L (15-37); Blood Urea Nitrogen 25 mg/dL (7-18); Calcium 8.8 mg/dL (8.5-10.1); Chloride 107 meq/L (98-107); Glomerular Filtration Rate 52 mL/min (>89); Glucose,Random 65 mg/dL (74-106); Magnesium 2.3 mg/dL (1.5-2.5); Potassium 4.1 meq/L (3.5-5.1); Sodium 145 meq/L (136-145)
[2018-10-02 22:58] LABS: Opiate Screen,Urine Pos (Neg)
[2018-10-02 22:59] LABS: Alkaline Phosphatase 101 U/L (45-117); Total Protein 8.1 g/dL (6.4-8.2)
[2018-10-02 23:20] LABS: Platelet Estimate Normal (Normal); Platelet Morphology Normal (Normal)
--- NOTE | 2018-10-02 23:28 | ED ---
HPI General Chief Complaint: Anxiety Stated Complaint: Anxiety Time Seen by Provider: 10/02/18 21:57 Source: patient and EMS Mode of arrival: EMS Limitations: altered mental status History of Present Illness HPI Narrative: 32 yo F arrives by EMS from home. Pt altered at home, agitated. Mother called EMS with concern for unknown substance abuse. EMS reports severe agitation in route, flailing about the ambulance. HR 170s. In ED pt agitated unable to answer questions. Restraints required upon arrival 2/2 imminent threat to self and others. Related Data Home Medications Medication Instructions Recorded Confirmed Unable to Obtain Home Meds 10/03/18 10/03/18 Allergies Allergy/AdvReac Type Severity Reaction Status Date / Time Sulfa (Sulfonamide Allergy Intermediate Gastrointestinal Verified 10/02/18 22:07 Antibiotics) Upset Review of Systems ROS: all other systems reviewed are negative [facility] Medical History Medical History Major depression (Acute) PTSD (post-traumatic stress disorder) (Acute) Panic attack (Acute) Chronic rheumatic arthritis (Acute) FHx: cholecystectomy (Acute) Lupus (Acute) Pancreatitis (Acute) Raynauds disease (Acute) Surgical History Surgical History Status post cholecystectomy (Acute) Family History Family History Other Coronary artery disease Social History Social History Substance History: Past History Second Hand Smoke Exposure: No Smoking Status: Current every day smoker Tobacco Type: Cigarettes How Often Do You Have a Drink Containing Alcohol: Monthly or less Immunization History Tetanus Immunization: Unsure Exam Narrative Exam Narrative: GENERAL: 32 yo F, severe agitation, loud screaming in ED SKIN: Diaphoresis. Intact otherwise. HEAD: Atraumatic. Normocephalic. EYES: Pupils equal and round. No scleral icterus. No injection or drainage. ENT: No nasal bleeding or discharge. Mucous membranes pink and moist. NECK: Trachea midline. No JVD. CARDIOVASCULAR: HR approx 170. Regular. RESPIRATORY: Tachypnea approx 30 BRP. Lungs clear bilaterally. GASTROINTESTINAL: Abdomen soft, non-tender, nondistended. Hepatic and splenic margins not palpable. MUSCULOSKELETAL: No obvious deformities. No clubbing. No cyanosis. No edema. NEUROLOGICAL: Awake. Moving all extremities normally. No appreciable CN deficit. PSYCHIATRIC: Severe agitation. Course Initial Documented Vital Signs Pulse Oximetry 96 10/02/18 22:00 Last Documented Vital Signs Temperature 99.4 F 12/22/18 22:07 Pulse Rate 100 H 10/03/18 03:00 Respiratory Rate 18 10/03/18 03:00 Blood Pressure 107/65 10/03/18 03:00 Pulse Oximetry 98 10/03/18 03:00 Critical Care Time Critical Care Time: Yes Total Critical Care Time: 35 Attestation: Aggregate critical care time was 35 minutes. Time to perform other separately billable procedures was not included in the critical care time. My time did not include minutes spent treating any other patients simultaneously or on activities that did not directly contribute to the patient's treatment. The services I provided to this patient were to treat and/or prevent clinically significant deterioration that could result in: harm to self or others I provided critical care services requiring my management, as noted below: Chart data review, documentation time, medication orders and management, vital sign assessments/reviewing monitor data, ordering and reviewing lab tests, ordering and interpreting/reviewing x-rays and diagnostic studies, care of the patient and discussion of the patient with the admitting physicians. Medical Decision Making MDM Narrative Medical decision making narrative: Pt required 25 mg of ketamine and 2mg of lorazepam IV upon arrival. Severe agitation recurred about 20 minutes later. 25mg ketamine given again with excellent effect. HR decreased to 110 after second dose ketamine followed by prolonged effective sedation. WBC 23.4 BUN 25 Cr 1.20 Glucose 65 AST 171 ALT 356 Total CK 210 d/w Dr Rios for [facility] Medical Screen Exam Complete: Yes Emergency Medical Condition: Yes Lab Data Result diagrams: 10/02/18 22:10 10/02/18 22:10 Lab Results 10/02/18 10/02/18 10/02/18 Range/Units 22:10 22:10 22:10 WBC 23.4 H (4.0-11.0) th/mm3 RBC 5.06 (4.00-5.30) mil/mm3 Hgb 14.6 (11.6-15.3) gm/dL Hct 43.7 (35.0-46.0) % MCV 86.4 (80.0-100.0) fL MCH 28.8 (27.0-34.0) pg MCHC 33.3 (32.0-36.0) % RDW 16.0 (11.6-17.2) % Plt Count 307 (150-450) th/mm3 MPV 8.7 (7.0-11.0) fL Prelim Diff (Auto) Slide review pending Neut % (Auto) 62.8 (16.0-70.0) % Lymph % (Auto) 26.4 (9.0-44.0) % [place] % (Auto) 9.5 H (0.0-8.0) % Eos % (Auto) 0.7 (0.0-4.0) % Baso % (Auto) 0.6 (0.0-2.0) % Neut # (Auto) 14.7 H (1.8-7.7) th/mm3 Lymph # (Auto) 6.2 H (1.0-4.8) th/mm3 [place] # (Auto) 2.2 H (0.0-0.9) th/mm3 Eos # (Auto) 0.2 (0.0-0.4) th/mm3 Baso # (Auto) 0.1 (0.0-0.2) th/mm3 WBC Differential . Diff Scan Auto diff confirmed Differential Comment . Platelet Estimate Normal (Normal) Platelet Morphology Normal (Normal) Sodium 145 (136-145) meq/L Potassium 4.1 (3.5-5.1) meq/L Chloride 107 (98-107) meq/L Carbon Dioxide 27.0 (21.0-32.0) meq/L Anion Gap 11 (5-15) meq/L BUN 25 H (7-18) mg/dL Creatinine 1.20 H (0.50-1.00) mg/dL Estimated GFR 52 L (>89) mL/min Random Glucose 65 L (74-106) mg/dL Calcium 8.8 (8.5-10.1) mg/dL Magnesium 2.3 (1.5-2.5) mg/dL Total Bilirubin 0.3 (0.2-1.0) mg/dL AST 171 H (15-37) U/L ALT 356 H (10-53) U/L Alkaline Phosphatase 101 (45-117) U/L Total Creatine Kinase 210 H Cancelled (26-192) U/L CK-MB (CK-2) 3.5 (0.5-3.6) ng/mL CK-MB (CK-2) % 1.7 (0.0-4.0) % Total Protein 8.1 (6.4-8.2) g/dL Albumin 3.8 (3.4-5.0) g/dL Urine Color (Yellw/Straw) Urine Clarity (Clear) Urine pH (5.0-8.5) Ur Specific [place] (1.002-1.035) Urine Protein (Neg-Trace) mg/dL Urine Glucose (UA) (Negative) mg/dL Urine Ketones (Negative) mg/dL Urine Occult Blood (Negative) Urine Nitrate (Negative) Urine Bilirubin (Negative) Urine Urobilinogen (Less than 2) mg/dL Ur Leukocyte Esterase (Negative) Urine RBC (0-3) /hpf Urine WBC (0-5) /hpf Ur Squamous Epith Cells (0-5) /hpf Ur Transition Epith Cell (None) /hpf Hyaline Casts (0-3) /lpf Granular Casts (None) /lpf Urine Mucus (Occasional) /lpf Micro UA Comment Ur Microscopic Review Urine Culture Comments Urine Opiates Screen (Neg) Ur Barbiturates Screen (Neg) Ur Amphetamines Screen (Neg) U Benzodiazepines Scrn (Neg) Urine Cocaine Screen (Neg) U Cannabinoids Screen (Neg) Serum Alcohol Less than 3 (0-5) mg/dL 10/02/18 10/02/18 Range/Units 22:20 22:20 WBC (4.0-11.0) th/mm3 RBC (4.00-5.30) mil/mm3 Hgb (11.6-15.3) gm/dL Hct (35.0-46.0) % MCV (80.0-100.0) fL MCH (27.0-34.0) pg MCHC (32.0-36.0) % RDW (11.6-17.2) % Plt Count (150-450) th/mm3 MPV (7.0-11.0) fL Prelim Diff (Auto) Neut % (Auto) (16.0-70.0) % Lymph % (Auto) (9.0-44.0) % [place] % (Auto) (0.0-8.0) % Eos % (Auto) (0.0-4.0) % Baso % (Auto) (0.0-2.0) % Neut # (Auto) (1.8-7.7) th/mm3 Lymph # (Auto) (1.0-4.8) th/mm3 [place] # (Auto) (0.0-0.9) th/mm3 Eos # (Auto) (0.0-0.4) th/mm3 Baso # (Auto) (0.0-0.2) th/mm3 WBC Differential Diff Scan Differential Comment Platelet Estimate (Normal) Platelet Morphology (Normal) Sodium (136-145) meq/L Potassium (3.5-5.1) meq/L Chloride (98-107) meq/L Carbon Dioxide (21.0-32.0) meq/L Anion Gap (5-15) meq/L BUN (7-18) mg/dL Creatinine (0.50-1.00) mg/dL Estimated GFR (>89) mL/min Random Glucose (74-106) mg/dL Calcium (8.5-10.1) mg/dL Magnesium (1.5-2.5) mg/dL Total Bilirubin (0.2-1.0) mg/dL AST (15-37) U/L ALT (10-53) U/L Alkaline Phosphatase (45-117) U/L Total Creatine Kinase (26-192) U/L CK-MB (CK-2) (0.5-3.6) ng/mL CK-MB (CK-2) % (0.0-4.0) % Total Protein (6.4-8.2) g/dL Albumin (3.4-5.0) g/dL Urine Color Yellow (Yellw/Straw) Urine Clarity Hazy H (Clear) Urine pH 5.0 (5.0-8.5) Ur Specific [place] 1.021 (1.002-1.035) Urine Protein 30 H (Neg-Trace) mg/dL Urine Glucose (UA) Negative (Negative) mg/dL Urine Ketones Negative (Negative) mg/dL Urine Occult Blood Small H (Negative) Urine Nitrate Negative (Negative) Urine Bilirubin Negative (Negative) Urine Urobilinogen Less than 2 (Less than 2) mg/dL Ur Leukocyte Esterase Negative (Negative) Urine RBC 32 H (0-3) /hpf Urine WBC 4 (0-5) /hpf Ur Squamous Epith Cells 1 (0-5) /hpf Ur Transition Epith Cell <1 (None) /hpf Hyaline Casts 25 (0-3) /lpf Granular Casts 15 (None) /lpf Urine Mucus Few H (Occasional) /lpf Micro UA Comment Cath-culture not ind Ur Microscopic Review Not Reportable Urine Culture Comments Cath-cult not ind Urine Opiates Screen Pos H (Neg) Ur Barbiturates Screen Neg (Neg) Ur Amphetamines Screen Pos H (Neg) U Benzodiazepines Scrn Neg (Neg) Urine Cocaine Screen Neg (Neg) U Cannabinoids Screen Neg (Neg) Serum Alcohol (0-5) mg/dL Discharge Plan Discharge Disposition Patient Disposition: ED Admit(ED Internal Use Only) Discharge Order Discharge Orders: ED Use Only Admit Order (Routine); Ordered 10/03/18 Ordered By: Feliberto Nascimento Physicians Team ED Provider: Feliberto Nascimento Primary Care Provider: Beto Irving Attending Provider: Amisha Daniel Discharge Interventions Interventions: Vital Signs Last Done: 10/03/18 01:00 Status ED Status: Admitted Observation Patient
[2018-10-02 23:40] LABS: Bilirubin,Urine Negative (Negative); Clarity,Urine Hazy (Clear); Color,Urine Yellow (Yellw/Straw); Glucose,Urine (UA) Negative (Negative); Hyaline Casts,Urine 25 /lpf (0-3); Leukocyte Esterase,Urine Negative (Negative); Mucus,Urine Few /lpf (Occasional); Nitrite,Urine Negative (Negative); Specific Gravity,Urine 1.021 (1.002-1.035); Squamous Epithelial Cell,Urine 1 /hpf (0-5); Transitional Epi Cells,Urine <1 /hpf
[2018-10-03 00:55] LABS: Creatine Kinase 210 U/L (26-192)
[2018-10-03 01:12] LABS: CKMB Percent 1.7 % (0.0-4.0); Creatine Kinase MB 3.5 ng/mL (0.5-3.6)
[2018-10-03] MEDS ORDERED: Ketamine Inj 50 MG/5 ML Syringe IV.PUSH ONE (01:16)
--- NOTE | 2018-10-03 02:56 | P.HP ---
History of Present Illness Service: [facility] Primary Care Physician: Beto Irving MD History of Present Illness: 32-year-old female with a past medical history significant for IV drug abuse and polysubstance abuse presents to the emergency department for the evaluation of altered mental status and agitation. The patient's mother called EMS with concern for unknown substance abuse. EMS reported severe agitation in route. On arrival to the emergency department the patient's heart rate was in the 170s. She was feeling about, agitated and combative and had to be restrained. Following treatment with ketamine and Ativan the patient's tachycardia resolved. At the time of our interview the patient is flailing about in her restraints but is able to answer questions and is cooperative. The patient reports she was recently in detox however cannot tell me when that was. She states she recently had a slip and took methamphetamine 3 days ago. Drug screen was positive for opiates and amphetamines. The patient denies chest pain or shortness of breath. States her movements are involuntary. No abdominal pain. No nausea/vomiting/diarrhea. No focal neurologic deficits. Alert and oriented x3. No fever/chills. Review of Systems All other systems reviewed negative except as stated in HPI PMFSH - History History Provided By: Patient - Medical History Medical History: Medical History (Last Reviewed 10/03/18 @ 02:48 by Nani Rios MD) Major depression PTSD (post-traumatic stress disorder) Panic attack Chronic rheumatic arthritis FHx: cholecystectomy Lupus Pancreatitis Raynauds disease - Surgical History Surgical History: Surgical History (Last Updated 10/03/18 @ 02:48 by Nani Rios MD) Status post cholecystectomy - Family History Family History: Family History (Last Updated 10/03/18 @ 02:48 by Nani Rios MD) Other Coronary artery disease - Tobacco History Second Hand Smoke Exposure: No Tobacco Use In Past 30 Days: Yes Smoking Status: Current every day smoker Tobacco Type: Cigarettes - Alcohol History How Often Do You Have a Drink Containing Alcohol: Monthly or less - Substance Use History Substance History: Past History - Immunization History Tetanus Immunization: Unsure Medications and Allergies Active Medications: Active Medications Sodium Chloride (Ns Inj) 1,000 mls @ 125 mls/hr IV.CONT .Q8H DAINA Lorazepam (Ativan Inj) 1 mg IV.PUSH Q2H PRN PRN Reason: agitation Ondansetron HCl (Zofran Inj) 4 mg IV.PUSH Q6H PRN PRN Reason: NAUSEA OR VOMITING Sodium Chloride (Ns Flush) 2 ml IV.FLUSH PRN PRN PRN Reason: FLUSH AFTER USING IV ACCESS Sodium Chloride (Ns Flush) 2 ml IV.FLUSH BID DAINA Sodium Chloride (Ns Flush) 2 ml IV.FLUSH PRN PRN PRN Reason: FLUSH AFTER USING IV ACCESS Allergies Allergy/AdvReac Type Severity Reaction Status Date / Time Sulfa (Sulfonamide Allergy Intermediate Gastrointestinal Verified 10/02/18 22:07 Antibiotics) Upset Home Medications Medication Instructions Recorded Confirmed Type Unable to Obtain Home Meds 10/03/18 10/03/18 History Exam Vital signs: Vital Signs 10/02/18 22:00 10/02/18 22:07 10/02/18 23:00 Temperature 99.4 F Pulse Rate 170 H 103 H Respiratory Rate 28 H 18 Blood Pressure 142/80 H 103/51 L Pulse Oximetry 96 96 99 10/03/18 01:00 Temperature Pulse Rate 101 H Respiratory Rate 18 Blood Pressure 96/55 L Pulse Oximetry 98 Intake & Output 10/02/18 10/02/18 10/03/18 06:59 18:59 06:59 Intake Total 3000 / 3000 Balance 3000 / 3000 Weight 58.967 kg Intake: IV 3000 / 3000 NS Inj 1,000 ML @ 1000 mls/hr 3000 / 3000 IV.SIG BOLUS [facility] Rx#:[id number] Narrative: Gen.: No acute distress Head: Normocephalic. Atraumatic. EENT: Pupils equal round and reactive to light. Nose without drainage. Airway intact. Throat without injection. Cardiovascular: Regular rate and rhythm. No murmurs, rubs or gallops. Respiratory: Lungs clear to auscultation bilaterally. No wheezes or rhonchi. Abdomen: Soft, nontender, nondistended. No peritoneal signs. Musculoskeletal: No gross deformities. No edema. Skin: No obvious rashes or erythema. Neuro: Alert and oriented x3. Moves all 4 extremities spontaneously. Frequent , spastic movements which appear to be involuntary. Results - Labs CBC & Chem 7: 10/02/18 22:10 10/02/18 22:10 Labs: Laboratory Results - last 24 hr 10/02/18 10/02/18 10/02/18 22:10 22:10 22:10 WBC 23.4 H RBC 5.06 Hgb 14.6 Hct 43.7 MCV 86.4 MCH 28.8 MCHC 33.3 RDW 16.0 Plt Count 307 MPV 8.7 Prelim Diff (Auto) Slide review pending Neut % (Auto) 62.8 Lymph % (Auto) 26.4 [place] % (Auto) 9.5 H Eos % (Auto) 0.7 Baso % (Auto) 0.6 Neut # (Auto) 14.7 H Lymph # (Auto) 6.2 H [place] # (Auto) 2.2 H Eos # (Auto) 0.2 Baso # (Auto) 0.1 WBC Differential . Diff Scan Auto diff confirmed Differential Comment . Platelet Estimate Normal Platelet Morphology Normal Sodium 145 Potassium 4.1 Chloride 107 Carbon Dioxide 27.0 Anion Gap 11 BUN 25 H Creatinine 1.20 H Estimated GFR 52 L Random Glucose 65 L Calcium 8.8 Magnesium 2.3 Total Bilirubin 0.3 AST 171 H ALT 356 H Alkaline Phosphatase 101 Total Creatine Kinase 210 H Cancelled CK-MB (CK-2) 3.5 CK-MB (CK-2) % 1.7 Total Protein 8.1 Albumin 3.8 Urine Color Urine Clarity Urine pH Ur Specific [place] Urine Protein Urine Glucose (UA) Urine Ketones Urine Occult Blood Urine Nitrate Urine Bilirubin Urine Urobilinogen Ur Leukocyte Esterase Urine RBC Urine WBC Ur Squamous Epith Cells Ur Transition Epith Cell Hyaline Casts Granular Casts Urine Mucus Micro UA Comment Ur Microscopic Review Urine Culture Comments Urine Opiates Screen Ur Barbiturates Screen Ur Amphetamines Screen U Benzodiazepines Scrn Urine Cocaine Screen U Cannabinoids Screen Serum Alcohol Less than 3 10/02/18 10/02/18 22:20 22:20 WBC RBC Hgb Hct MCV MCH MCHC RDW Plt Count MPV Prelim Diff (Auto) Neut % (Auto) Lymph % (Auto) [place] % (Auto) Eos % (Auto) Baso % (Auto) Neut # (Auto) Lymph # (Auto) [place] # (Auto) Eos # (Auto) Baso # (Auto) WBC Differential Diff Scan Differential Comment Platelet Estimate Platelet Morphology Sodium Potassium Chloride Carbon Dioxide Anion Gap BUN Creatinine Estimated GFR Random Glucose Calcium Magnesium Total Bilirubin AST ALT Alkaline Phosphatase Total Creatine Kinase CK-MB (CK-2) CK-MB (CK-2) % Total Protein Albumin Urine Color Yellow Urine Clarity Hazy H Urine pH 5.0 Ur Specific [place]ettie 1.021 Urine Protein 30 H Urine Glucose (UA) Negative Urine Ketones Negative Urine Occult Blood Small H Urine Nitrate Negative Urine Bilirubin Negative Urine Urobilinogen Less than 2 Ur Leukocyte Esterase Negative Urine RBC 32 H Urine WBC 4 Ur Squamous Epith Cells 1 Ur Transition Epith Cell <1 Hyaline Casts 25 Granular Casts 15 Urine Mucus Few H Micro UA Comment Cath-culture not ind Ur Microscopic Review Not Reportable Urine Culture Comments Cath-cult not ind Urine Opiates Screen Pos H Ur Barbiturates Screen Neg Ur Amphetamines Screen Pos H U Benzodiazepines Scrn Neg Urine Cocaine Screen Neg U Cannabinoids Screen Neg Serum Alcohol Caprini VTE Risk Assessment Caprini VTE Risk Assessment: No/Low Risk (score <= 1) Caprini Risk Assessment Model: Point Value = 1 Point Value = 2 Point Value = 3 Point Value = 5 Age 41-60 Minor surgery BMI > 25 kg/m2 Swollen legs Varicose veins or History of unexplained or recurrent spontaneous Oral contraceptives or hormone replacement Sepsis (< 1 month) Serious lung disease, including pneumonia (< 1 month) Abnormal pulmonary function Acute myocardial infarction Congestive heart failure (< 1 month) History of inflammatory bowel disease Medical patient at bed rest Age 61-74 Arthroscopic surgery Major open surgery (> 45 min) Laparoscopic surgery (> 45 min) Malignancy Confined to bed (> 72 hours) Immobilizing plaster cast Central venous access Age >= 75 History of VTE Family history of VTE Factor V Leiden Prothrombin [id number] Lupus anticoagulant Anticardiolipin antibodies Elevated serum homocysteine Heparin-induced thrombocytopenia Other congenital or acquired thrombophilia Stroke (< 1 month) Elective arthroplasty Hip, pelvis, or leg fracture Acute spinal cord injury (< 1 month) Prophylaxis Regimen: Total Risk Factor Score Risk Level Prophylaxis Regimen 0-1 Low Early ambulation 2 Moderate Order ONE of the following: *Sequential Compression Device (SCD) *Heparin 5000 units SQ BID 3-4 Higher Order ONE of the following medications: *Heparin 5000 units SQ TID *Enoxaparin/Lovenox 40 mg SQ daily (WT < 150 kg, CrCl > 30 mL/min) *Enoxaparin/Lovenox 30 mg SQ daily (WT < 150 kg, CrCl > 10-29 mL/min) *Enoxaparin/Lovenox 30 mg SQ BID (WT < 150 kg, CrCl > 30 mL/min) AND/OR *Sequential Compression Device (SCD) 5 or more Highest Order ONE of the following medications: *Heparin 5000 units SQ TID (Preferred with Epidurals) *Enoxaparin/Lovenox 40 mg SQ daily (WT < 150 kg, CrCl > 30 mL/min) *Enoxaparin/Lovenox 30 mg SQ daily (WT < 150 kg, CrCl > 10-29 mL/min) *Enoxaparin/Lovenox 30 mg SQ BID (WT < 150 kg, CrCl > 30 mL/min) AND *Sequential Compression Device (SCD) Assessment and Plan - Plan Assessment/plan: 1. Altered mental status/agitation/spasticity Suspect secondary to toxic ingestion Urine drug screen positive for opiates and methamphetamines Supportive care Ativan as needed 2. Tachycardia On arrival patient's heart rate was 170, now 101 Monitor on telemetry Suspect secondary to methamphetamine use 3. Transaminitis AST/ALT 171/356 Hepatitis profile pending Monitor 4. Acute kidney injury BUN/creatinine 25/1.20 IV fluid hydration Monitor renal function FEN Regular diet Electrolytes: Monitor and replete as needed NS at 125 cc/hour
[2018-10-03 06:48] LABS: Hepatitis A IgM Antibody Nonreactive (Nonreactive)
[2018-10-03 06:49] LABS: Hepatitits B Surface Antigen Nonreactive (Nonreactive)
[2018-10-03 06:50] LABS: CKMB Percent 1.5 % (0.0-4.0); Creatine Kinase MB 10.5 ng/mL (0.5-3.6)
[2018-10-03] MEDS: Sod Chloride 0.9% Inj 1,000 ML IV.CONT SCH ×2 (11:19→17:24)
--- NOTE | 2018-10-03 11:37 | P.PNIM ---
Patient seen and examined, discussed case at length, chart reviewed, patient now fully awake alert, tolerating diet, no nausea vomiting, no fever chills, no shortness of breath or chest pain, will repeat her CBC, if WBCs are improved, no evidence or concern of infection at this point, likely the leukocytosis was reactive, no evidence of infection currently patient advised at length to follow -up with [facility] for rehab and detox. Possibly discharge home later today for outpatient follow-up.
[2018-10-03 13:45] LABS: Baso # (Auto) 0.1 th/mm3 (0.0-0.2); Baso % (Auto) 0.7 % (0.0-2.0); Eos # (Auto) 0.1 th/mm3 (0.0-0.4); Eos % (Auto) 1.1 % (0.0-4.0); Hematocrit 36.5 % (35.0-46.0); Hemoglobin 12.4 gm/dL (11.6-15.3); Lymph # (Auto) 2.8 th/mm3 (1.0-4.8); Lymph % (Auto) 26.4 % (9.0-44.0); Mean Corpuscular Hemoglobin 29.4 pg (27.0-34.0); Mean Corpuscular Volume 86.6 fL (80.0-100.0); Mean Platelet Volume 8.1 fL (7.0-11.0); Mono % (Auto) 9.3 % (0.0-8.0); Neut # (Auto) 6.6 th/mm3 (1.8-7.7); Neut % (Auto) 62.5 % (16.0-70.0); Platelet Count 173 th/mm3 (150-450); Red Blood Count 4.21 mil/mm3 (4.00-5.30); Red Cell Distribution Width 15.9 % (11.6-17.2); White Blood Count 10.5 th/mm3 (4.0-11.0)
[2018-10-03 16:53] VITALS: BP 120/78; PULSE 82; RESP 16; TEMP 98.8; O2SAT 99
== END 2018-10-03 19:43 | disposition home or self-care (01) ==
LOC: NEPE 21:47 → NEDA 21:47 → NEPGCP 10-03 05:10
PROVIDERS: ADMIT Internal Medicine; ATTEND Internal Medicine
CPT/HCPCS: 80053; 80074; 80307; 81001; 82550; 82552; 83735; 85025; 90774; 90775; 90784; 96361; 96374; 96375; 96376; 99291; C8952; G0378; J2060; J7030; P9612

== ENCOUNTER 2018-10-11 04:23 | Inpatient (IN) ==
[2018-10-11] MEDS ORDERED: Haloperidol Inj 5 MG/ML Ampul ONE (04:27)
[2018-10-11] MEDS ORDERED: Haloperidol Inj 5 MG/ML Ampul IM ONE (04:30)
--- NOTE | 2018-10-11 04:46 | ED ---
HPI General Chief Complaint: Psychiatric Symptoms Stated Complaint: Marchman/PSY/HHPD Time Seen by Provider: 10/11/18 04:29 History of Present Illness HPI Narrative: 32-year-old female brought in to the emergency department for possible drug overdose. She is incredibly restless and minimally cooperative. Patient denies drug use at this time. She was forced to the ER by the police under the [place] Act. Related Data Home Medications Medication Instructions Recorded Confirmed buspirone 10 mg PO BID 10/11/18 10/11/18 Allergies Allergy/AdvReac Type Severity Reaction Status Date / Time Sulfa (Sulfonamide Allergy Intermediate Gastrointestinal Verified 10/11/18 11:30 Antibiotics) Upset [facility] Medical History Medical History Chronic rheumatic arthritis (Acute) FHx: cholecystectomy (Acute) Lupus (Acute) Major depression (Acute) PTSD (post-traumatic stress disorder) (Acute) Pancreatitis (Acute) Panic attack (Acute) Raynauds disease (Acute) Surgical History Surgical History Status post cholecystectomy (Acute) Family History Family History Other Coronary artery disease Social History Social History Substance History: Active Abuse Second Hand Smoke Exposure: No Smoking Status: Unknown if ever smoked Tobacco Type: Cigarettes How Often Do You Have a Drink Containing Alcohol: Unable to Obtain Recent Travel in [facility] within the Last 8 Weeks: No Recent Out of Country Travel within the Last 8 Weeks: No Course Initial Documented Vital Signs Pulse Rate 107 H 10/11/18 05:37 Respiratory Rate 16 10/11/18 05:37 Blood Pressure 95/45 L 10/11/18 05:37 Pulse Oximetry 95 10/11/18 05:37 Last Documented Vital Signs Temperature 97.7 F 10/11/18 15:30 Pulse Rate 76 10/11/18 15:30 Respiratory Rate 17 10/11/18 15:30 Blood Pressure 102/65 10/11/18 15:30 Pulse Oximetry 99 10/11/18 15:30 Medical Decision Making MDM Narrative Medical decision making narrative: Patient originally seen by Dr. Plascencia and sedated. Patient found to have a CK of 4000 with ARF with a Creatinine of 2.8. Patient was given 4L of fluids. She is placed in observation for further management. Lab Data Result diagrams: 10/11/18 04:50 10/11/18 08:25 POC Results POC Urine Results Negative Lab Results 10/11/18 10/11/18 10/11/18 Range/Units 04:50 04:50 05:00 WBC 29.9 H (4.0-11.0) th/mm3 RBC 5.10 (4.00-5.30) mil/mm3 Hgb 14.4 (11.6-15.3) gm/dL Hct 44.2 (35.0-46.0) % MCV 86.6 (80.0-100.0) fL MCH 28.3 (27.0-34.0) pg MCHC 32.7 (32.0-36.0) % RDW 15.5 (11.6-17.2) % Plt Count 389 D (150-450) th/mm3 MPV 9.1 (7.0-11.0) fL Prelim Diff (Auto) Slide review pending Neut % (Auto) 70.0 (16.0-70.0) % Lymph % (Auto) 18.9 (9.0-44.0) % [place] % (Auto) 9.9 H (0.0-8.0) % Eos % (Auto) 0.1 (0.0-4.0) % Baso % (Auto) 1.1 (0.0-2.0) % Neut # (Auto) 21.0 H (1.8-7.7) th/mm3 Lymph # (Auto) 5.7 H (1.0-4.8) th/mm3 [place] # (Auto) 3.0 H (0.0-0.9) th/mm3 Eos # (Auto) 0.0 (0.0-0.4) th/mm3 Baso # (Auto) 0.3 H (0.0-0.2) th/mm3 WBC Differential Manual diff final Seg Neuts % (Manual) 67 (16-70) % Band Neuts % (Manual) 2 (0-6) % Lymphocytes % (Manual) 20 (9-44) % Monocytes % (Manual) 11 H (0-8) % Abs Neuts (Manual) 20.6 H (1.8-7.7) th/mm3 Differential Comment . Toxic Vacuolation Present H (None) Platelet Estimate Normal (Normal) Platelet Morphology Normal (Normal) RBC Morphology Normal (Normal) Sodium 143 (136-145) meq/L Potassium 4.3 (3.5-5.1) meq/L Chloride 107 (98-107) meq/L Carbon Dioxide 18.3 L (21.0-32.0) meq/L Anion Gap 18 H (5-15) meq/L BUN 37 H (7-18) mg/dL Creatinine 2.72 H (0.50-1.00) mg/dL Estimated GFR 20 L (>89) mL/min POC Glucose (68-110) mg/dl Random Glucose 48 L* (74-106) mg/dL Calcium 9.1 (8.5-10.1) mg/dL Calcium Adj for Albumin (8.5-10.1) mg/dL Total Bilirubin 0.7 (0.2-1.0) mg/dL AST 567 H (15-37) U/L ALT 501 H (10-53) U/L Alkaline Phosphatase 127 H (45-117) U/L Total Creatine Kinase 4000 H (26-192) U/L CK-MB (CK-2) 49.5 H (0.5-3.6) ng/mL CK-MB (CK-2) % 1.2 (0.0-4.0) % Total Protein 8.2 (6.4-8.2) g/dL Albumin 3.9 (3.4-5.0) g/dL Urine Opiates Screen Pos H (Neg) Ur Barbiturates Screen Neg (Neg) Ur Amphetamines Screen Pos H (Neg) U Benzodiazepines Scrn Neg (Neg) Urine Cocaine Screen Neg (Neg) U Cannabinoids Screen Neg (Neg) 10/11/18 10/11/18 10/11/18 Range/Units 06:39 08:25 13:33 WBC (4.0-11.0) th/mm3 RBC (4.00-5.30) mil/mm3 Hgb (11.6-15.3) gm/dL Hct (35.0-46.0) % MCV (80.0-100.0) fL MCH (27.0-34.0) pg MCHC (32.0-36.0) % RDW (11.6-17.2) % Plt Count (150-450) th/mm3 MPV (7.0-11.0) fL Prelim Diff (Auto) Neut % (Auto) (16.0-70.0) % Lymph % (Auto) (9.0-44.0) % [place] % (Auto) (0.0-8.0) % Eos % (Auto) (0.0-4.0) % Baso % (Auto) (0.0-2.0) % Neut # (Auto) (1.8-7.7) th/mm3 Lymph # (Auto) (1.0-4.8) th/mm3 [place] # (Auto) (0.0-0.9) th/mm3 Eos # (Auto) (0.0-0.4) th/mm3 Baso # (Auto) (0.0-0.2) th/mm3 WBC Differential Seg Neuts % (Manual) (16-70) % Band Neuts % (Manual) (0-6) % Lymphocytes % (Manual) (9-44) % Monocytes % (Manual) (0-8) % Abs Neuts (Manual) (1.8-7.7) th/mm3 Differential Comment Toxic Vacuolation (None) Platelet Estimate (Normal) Platelet Morphology (Normal) RBC Morphology (Normal) Sodium 142 (136-145) meq/L Potassium 4.2 (3.5-5.1) meq/L Chloride 112 H (98-107) meq/L Carbon Dioxide 19.8 L (21.0-32.0) meq/L Anion Gap 10 (5-15) meq/L BUN 34 H (7-18) mg/dL Creatinine 1.86 H (0.50-1.00) mg/dL Estimated GFR 32 L (>89) mL/min POC Glucose 155 H (68-110) mg/dl Random Glucose 91 (74-106) mg/dL Calcium 7.3 L* D (8.5-10.1) mg/dL Calcium Adj for Albumin 8.3 L (8.5-10.1) mg/dL Total Bilirubin (0.2-1.0) mg/dL AST (15-37) U/L ALT (10-53) U/L Alkaline Phosphatase (45-117) U/L Total Creatine Kinase 3630 H 3445 H (26-192) U/L CK-MB (CK-2) 35.6 H 32.2 H (0.5-3.6) ng/mL CK-MB (CK-2) % 1.0 0.9 (0.0-4.0) % Total Protein (6.4-8.2) g/dL Albumin 2.7 L D (3.4-5.0) g/dL Urine Opiates Screen (Neg) Ur Barbiturates Screen (Neg) Ur Amphetamines Screen (Neg) U Benzodiazepines Scrn (Neg) Urine Cocaine Screen (Neg) U Cannabinoids Screen (Neg) Discharge Plan Discharge Order Discharge Orders: ED Use Only Admit Order (Routine); Ordered 10/11/18 Ordered By: Elsie Banks Physicians Team ED Provider: Nely Plascencia Primary Care Provider: UNKNOWN, Attending Provider: Amisha Daniel Rxs /Orders / Referrals /Forms Prescriptions: No Action buspirone 10 mg Tablet 10 mg PO BID RF: 0 Discharge Interventions Interventions: ED Discharge Assessment Last Done: 10/11/18 15:35 Status ED Status: Admitted Observation Patient
[2018-10-11] MEDS: Sod Chloride 0.9% Inj 1,000 ML IV.SIG SCH ×2 (05:15→05:54)
[2018-10-11 05:23] LABS: Baso # (Auto) 0.3 th/mm3 (0.0-0.2); Baso % (Auto) 1.1 % (0.0-2.0); Eos % (Auto) 0.1 % (0.0-4.0); Hematocrit 44.2 % (35.0-46.0); Hemoglobin 14.4 gm/dL (11.6-15.3); Lymph # (Auto) 5.7 th/mm3 (1.0-4.8); Lymph % (Auto) 18.9 % (9.0-44.0); Mean Corpuscular HGB Conc 32.7 % (32.0-36.0); Mean Corpuscular Hemoglobin 28.3 pg (27.0-34.0); Mean Corpuscular Volume 86.6 fL (80.0-100.0); Mean Platelet Volume 9.1 fL (7.0-11.0); Mono % (Auto) 9.9 % (0.0-8.0); Platelet Count 389 th/mm3 (150-450); Red Cell Distribution Width 15.5 % (11.6-17.2); White Blood Count 29.9 th/mm3 (4.0-11.0)
[2018-10-11 05:29] LABS: Amphetamine Screen,Urine Pos (Neg); Barbiturate Screen,Urine Neg (Neg); Cannabinoid Screen,Urine Neg (Neg); Cocaine Screen,Urine Neg (Neg)
[2018-10-11 05:33] LABS: Opiate Screen,Urine Pos (Neg)
[2018-10-11 05:37] LABS: Anion Gap 18 meq/L (5-15)
[2018-10-11 05:55] LABS: Alanine Aminotransferase 501 U/L (10-53); Albumin 3.9 g/dL (3.4-5.0); Alkaline Phosphatase 127 U/L (45-117); Aspartate Aminotransferase 567 U/L (15-37); Blood Urea Nitrogen 37 mg/dL (7-18); Calcium 9.1 mg/dL (8.5-10.1); Carbon Dioxide 18.3 meq/L (21.0-32.0); Chloride 107 meq/L (98-107); Creatine Kinase 4000 U/L (26-192); Glomerular Filtration Rate 20 mL/min (>89); Lymphocytes 20 % (9-44); Monocytes 11 % (0-8); Potassium 4.3 meq/L (3.5-5.1); Sodium 143 meq/L (136-145); Total Protein 8.2 g/dL (6.4-8.2)
[2018-10-11 05:56] LABS: Glucose,Random 48 mg/dL (74-106)
[2018-10-11 05:58] LABS: Platelet Estimate Normal (Normal); Platelet Morphology Normal (Normal); RBC Morphology Normal (Normal); Toxic Vacuolation Present
[2018-10-11] MEDS ORDERED: Dextrose 50% in Water Syringe 50 ML ONE ×2 (06:00→06:01)
[2018-10-11] MEDS ORDERED: Dextrose 50% in Water 50 ML Vial IV.PUSH ONE (06:02)
[2018-10-11 06:22] LABS: CKMB Percent 1.2 % (0.0-4.0); Creatine Kinase MB 49.5 ng/mL (0.5-3.6)
[2018-10-11 09:06] LABS: Calcium 7.3 mg/dL (8.5-10.1); Carbon Dioxide 19.8 meq/L (21.0-32.0); Potassium 4.2 meq/L (3.5-5.1)
[2018-10-11 09:17] LABS: Albumin 2.7 g/dL (3.4-5.0); Calcium-Albumin Corrected 8.3 mg/dL (8.5-10.1)
[2018-10-11 09:54] LABS: Creatine Kinase MB 35.6 ng/mL (0.5-3.6)
[2018-10-11] MEDS ORDERED: Bisacodyl 10 MG Supp RECTAL PRN (12:04)
[2018-10-11] MEDS ORDERED: Acetaminophen 325 MG Tablet PO PRN (12:04)
[2018-10-11] MEDS: Enoxaparin Inj 30 MG/0.3 ML Syringe SQ SCH (12:34)
[2018-10-11] MEDS: Sod Chloride 0.9% Inj 1,000 ML IV.CONT SCH ×3 (12:35→20:55)
[2018-10-11 14:54] LABS: CKMB Percent 0.9 % (0.0-4.0); Creatine Kinase MB 32.2 ng/mL (0.5-3.6)
--- NOTE | 2018-10-11 19:07 | P.HPIM ---
History of Present Illness Primary Care Physician: UNKNOWN Chief Complaint: AMS History of Present Illness: 32-year-old female brought to the emergency room for possible drug overdose, patient is restless and not cooperative, denies drug use per recent admission for similar episode, with history of IV drug abuse. Patient was placed under place a [place] act and sent to the emergency room. Where she was found to have diffuse rash which she states started after she started venlafaxine recently, she was noted to have an elevated white blood cell count and elevated CPK over thousand 4000 so were asked for admission for further evaluation workup. Patient is unable to give further history she is somewhat lethargic after IV Ativan and Haldol in the emergency room PMhx: Per chart includes, rheumatoid arthritis patient states she is on chronic steroids, also rainouts disease, pancreatitis, PTSD, major depression, narcotic abuse PSXhx: Cholecystectomy SOChx: Admits to tobacco use, admits to meth use, denies alcohol FAMhx:. Lupus, coronary artery disease Review of Systems ROS Unobtainable: unobtainable due to mental condition [facility] Medical History Medical History Chronic rheumatic arthritis (Acute) FHx: cholecystectomy (Acute) Lupus (Acute) Major depression (Acute) PTSD (post-traumatic stress disorder) (Acute) Pancreatitis (Acute) Panic attack (Acute) Raynauds disease (Acute) Surgical History Surgical History Status post cholecystectomy (Acute) Family History Family History Other Coronary artery disease Social History Social History Substance History: Active Abuse Second Hand Smoke Exposure: No Smoking Status: Unknown if ever smoked Tobacco Type: Cigarettes How Often Do You Have a Drink Containing Alcohol: Unable to Obtain Recent Travel in [facility] within the Last 8 Weeks: No Recent Out of Country Travel within the Last 8 Weeks: No Substance Abuse Detail Amphetamines: Substance Use Status: Active Route Used Substance Abuse: By Mouth and Intravenously Reason for Use: Get High Immunization History Tetanus Immunization: Unable to Assess Medications and Allergies Allergies Allergy/AdvReac Type Severity Reaction Status Date / Time Sulfa (Sulfonamide Allergy Intermediate Gastrointestinal Verified 10/11/18 11:30 Antibiotics) Upset Home Medications Medication Instructions Recorded Confirmed Type buspirone 10 mg PO BID 10/11/18 10/11/18 History Active Medications: Active Medications Acetaminophen (Tylenol) 650 mg PO Q4H PRN PRN Reason: Temp > 100.4 Al Hydroxide/Mg Hydroxide (Milk Of Magnesia Liq) 30 ml PO Q12H PRN PRN Reason: Mild Constipation Bisacodyl (Dulcolax Supp) 10 mg RECTAL DAILY PRN PRN Reason: SEVERE CONSITIPATION Enoxaparin Sodium (Lovenox Inj) 30 mg SQ Q24H [facility] Last Admin: 10/11/18 12:34 Dose: 30 mg Sodium Chloride (Ns Inj) 1,000 mls @ 150 mls/hr IV.CONT .Q6H40M [facility] Last Admin: 10/11/18 18:51 Dose: Not Given Lactulose (Lactulose Liq) 30 ml PO DAILY PRN PRN Reason: SEVERE CONSITIPATION Lorazepam (Ativan Inj) 1 mg IV.PUSH Q4H PRN PRN Reason: AGITATION Ondansetron HCl (Zofran Inj) 4 mg IV.PUSH Q6H PRN PRN Reason: NAUSEA OR VOMITING Senna/Docusate Sodium (Karie-Colace) 1 tab PO BID [facility] Sennosides (Senokot) 17.2 mg PO Q12H PRN PRN Reason: Moderate Constipation Sodium Chloride (Ns Flush) 2 ml IV.FLUSH BID DAINA Sodium Chloride (Ns Flush) 2 ml IV.FLUSH PRN PRN PRN Reason: FLUSH AFTER USING IV ACCESS Last Admin: 10/11/18 12:36 Dose: 2 ml Physical Exam Vital signs: Last Vital Signs Temp 98 F 10/11/18 16:00 Pulse 70 10/11/18 16:00 Resp 18 10/11/18 16:00 BP 94/51 L 10/11/18 16:00 Pulse Ox 97 10/11/18 16:00 Intake & Output 10/09/18 10/10/18 10/11/18 10/12/18 06:59 06:59 06:59 06:59 Intake Total 1050 / 1050 1795 Balance 1050 / 1050 1795 Weight 54.431 kg 55.5 kg GEN ill-appearing 32-year-old female Sedated, poorly responsive, no distress, sedated, diffuse multiple plaque like erythematous welts on arms and legs HEENT normocephalic atraumatic, Pupils equal reactive, sclerae anicteric, extraocular motion intact, mucosa is moist. posterior pharynx clear, poor dentition NECK supple no JVD trachea midline thyroid smooth not enlarged ANT CHEST WALL without mass or tenderness to palpation HEART S1-S2 regular without murmur gallops or clicks, tachycardic LUNGS clear to auscultation without wheeze rales or rhonchi , full symmetric expansion BACK exam is no CVA tenderness or mass ABDOMEN soft nondistended positive bowel sounds no guarding rebound rigidity LYMPH NODES no cervical, axillary or inguinal adenopathy noted EXTREMITIES no clubbing cyanosis or significant edema, peripheral pulses palpable +2 NEUROLOGIC cranial nerves II through XII appear grossly intact, strength is 5 out of 5 symmetrical no clonus or rigidity SKIN warm and dry with good turgor, no other rash or sores noted Results Labs CBC & Chem 7: 10/11/18 04:50 10/11/18 08:25 Caprini VTE Risk Assessment Caprini VTE Risk Assessment: Moderate/High Risk (score >= 2) Caprini Risk Assessment Model: Point Value = 1 Point Value = 2 Point Value = 3 Point Value = 5 Age 41-60 Minor surgery BMI > 25 kg/m2 Swollen legs Varicose veins or History of unexplained or recurrent spontaneous Oral contraceptives or hormone replacement Sepsis (< 1 month) Serious lung disease, including pneumonia (< 1 month) Abnormal pulmonary function Acute myocardial infarction Congestive heart failure (< 1 month) History of inflammatory bowel disease Medical patient at bed rest Age 61-74 Arthroscopic surgery Major open surgery (> 45 min) Laparoscopic surgery (> 45 min) Malignancy Confined to bed (> 72 hours) Immobilizing plaster cast Central venous access Age >= 75 History of VTE Family history of VTE Factor V Leiden Prothrombin [id number] Lupus anticoagulant Anticardiolipin antibodies Elevated serum homocysteine Heparin-induced thrombocytopenia Other congenital or acquired thrombophilia Stroke (< 1 month) Elective arthroplasty Hip, pelvis, or leg fracture Acute spinal cord injury (< 1 month) Prophylaxis Regimen: Total Risk Factor Score Risk Level Prophylaxis Regimen 0-1 Low Early ambulation 2 Moderate Order ONE of the following: *Sequential Compression Device (SCD) *Heparin 5000 units SQ BID 3-4 Higher Order ONE of the following medications: *Heparin 5000 units SQ TID *Enoxaparin/Lovenox 40 mg SQ daily (WT < 150 kg, CrCl > 30 mL/min) *Enoxaparin/Lovenox 30 mg SQ daily (WT < 150 kg, CrCl > 10-29 mL/min) *Enoxaparin/Lovenox 30 mg SQ BID (WT < 150 kg, CrCl > 30 mL/min) AND/OR *Sequential Compression Device (SCD) 5 or more Highest Order ONE of the following medications: *Heparin 5000 units SQ TID (Preferred with Epidurals) *Enoxaparin/Lovenox 40 mg SQ daily (WT < 150 kg, CrCl > 30 mL/min) *Enoxaparin/Lovenox 30 mg SQ daily (WT < 150 kg, CrCl > 10-29 mL/min) *Enoxaparin/Lovenox 30 mg SQ BID (WT < 150 kg, CrCl > 30 mL/min) AND *Sequential Compression Device (SCD) Assessment and Plan Plan AMS -acute toxic encephalopathy, questionable withdrawal, questionable heroin or crystal meth ingestion, Leukocytosis probably reactive, cont to monitor hold abx for now. Diffuse drug eruption/rash, suspicious for drug eruption, will treat with IV steroids, IV Benadryl, and H2 blockers, will go ahead and get blood cultures x2 , also evaluation for vasculitic process patient has family history of lupus, will check RENEE, patient reports being chronically on steroids, this may be causing the elevation of her white blood cell count, however occult bacteremia is always a concern in patient with IV drug use history. Blood cultures will be monitored Dehydration with acute kidney injury prerenal azotemia continue IV fluids Acute rhabdomyolysis continue fluids, monitor CPKs alkalinize urine as needed Transaminitis with history of hepatitis C chronic outpatient follow-up Polysubstance abuse history narcotic dependence, nicotine dependence, cessation counseling, withdrawal management, symptom medic treatment. Questionable history of rheumatoid arthritis on chronic prednisone? Depression anxiety recently started on venlafaxine, suspect possible allergic reaction, hold this outpatient follow-up. dvt prophylaxis - lovenox dispo - joel jason, samira planning when stable
[2018-10-11 20:43] LABS: CKMB Percent 0.9 % (0.0-4.0); Creatine Kinase MB 28.6 ng/mL (0.5-3.6)
[2018-10-11] MEDS: MethylPREDNISolone Sod Succinate Inj 40 MG/ML Vial IV.PUSH SCH (20:49)
[2018-10-11] MEDS: Famotidine 20 MG Tablet PO SCH (20:49)
[2018-10-11] MEDS: Senna/Docusate Sodium 8.6/50 MG Tablet PO SCH (20:49)
[2018-10-12] MEDS: Sod Chloride 0.9% Inj 1,000 ML IV.CONT SCH ×4 (02:11→23:00)
[2018-10-12 06:28] LABS: Bacteria,Urine Rare /hpf; Bilirubin,Urine Negative (Negative); Clarity,Urine Hazy (Clear); Color,Urine Yellow (Yellw/Straw); Glucose,Urine (UA) Negative (Negative); Leukocyte Esterase,Urine Negative (Negative); Mucus,Urine Few /lpf (Occasional); Nitrite,Urine Negative (Negative); Specific Gravity,Urine 1.017 (1.002-1.035); Squamous Epithelial Cell,Urine 1 /hpf (0-5)
[2018-10-12] MEDS: MethylPREDNISolone Sod Succinate Inj 40 MG/ML Vial IV.PUSH SCH (08:16)
[2018-10-12] MEDS: Senna/Docusate Sodium 8.6/50 MG Tablet PO SCH ×2 (08:17→21:05)
[2018-10-12] MEDS: Famotidine 20 MG Tablet PO SCH ×2 (08:17→21:03)
[2018-10-12 10:05] LABS: Baso % (Auto) 0.5 % (0.0-2.0); Eos % (Auto) 0.1 % (0.0-4.0); Hematocrit 37.4 % (35.0-46.0); Hemoglobin 12.3 gm/dL (11.6-15.3); Lymph # (Auto) 2.1 th/mm3 (1.0-4.8); Lymph % (Auto) 25.1 % (9.0-44.0); Mean Corpuscular HGB Conc 32.9 % (32.0-36.0); Mean Corpuscular Hemoglobin 28.9 pg (27.0-34.0); Mean Corpuscular Volume 87.8 fL (80.0-100.0); Mean Platelet Volume 8.5 fL (7.0-11.0); Mono # (Auto) 0.7 th/mm3 (0.0-0.9); Mono % (Auto) 7.7 % (0.0-8.0); Neut # (Auto) 5.7 th/mm3 (1.8-7.7); Neut % (Auto) 66.6 % (16.0-70.0); Platelet Count 214 th/mm3 (150-450); Red Blood Count 4.26 mil/mm3 (4.00-5.30); Red Cell Distribution Width 15.8 % (11.6-17.2); White Blood Count 8.5 th/mm3 (4.0-11.0)
[2018-10-12 10:39] LABS: Alanine Aminotransferase 437 U/L (10-53); Albumin 2.4 g/dL (3.4-5.0); Anion Gap 8 meq/L (5-15); Aspartate Aminotransferase 530 U/L (15-37); Blood Urea Nitrogen 21 mg/dL (7-18); Calcium 7.6 mg/dL (8.5-10.1); Carbon Dioxide 19.9 meq/L (21.0-32.0); Chloride 114 meq/L (98-107); Glomerular Filtration Rate 81 mL/min (>89); Glucose,Random 114 mg/dL (74-106); Phosphorus 1.2 mg/dL (2.5-4.9); Potassium 3.7 meq/L (3.5-5.1); Sodium 142 meq/L (136-145)
[2018-10-12 10:42] LABS: Alkaline Phosphatase 82 U/L (45-117); Creatine Kinase 2312 U/L (26-192); Total Protein 5.6 g/dL (6.4-8.2)
[2018-10-12 11:02] LABS: CKMB Percent 0.7 % (0.0-4.0); Creatine Kinase MB 15.3 ng/mL (0.5-3.6)
[2018-10-12] MEDS: LORazepam 1 MG Tablet PO PRN ×2 (12:27→18:49)
[2018-10-12] MEDS: Enoxaparin Inj 30 MG/0.3 ML Syringe SQ SCH (12:29)
--- NOTE | 2018-10-12 18:28 | P.PNIM ---
Subjective Interval history: 32-year-old female with a history of heroin and methamphetamine abuse, her complaint today is that she is withdrawing. Physical Exam Vital signs: Last Vital Signs Temp 98.0 F 10/12/18 16:00 Pulse 86 10/12/18 16:00 Resp 17 10/12/18 16:00 BP 109/64 10/12/18 16:00 Pulse Ox 99 10/12/18 16:00 Intake & Output 10/10/18 10/11/18 10/12/18 10/13/18 06:59 06:59 06:59 06:59 Intake Total 1050 / 1050 3796 / 3796 1999 Balance 1050 / 1050 3796 / 3796 1999 Weight 54.431 kg 55.5 kg Narrative: GENERAL: AAOx3, appears uncomfortable, agitated SKIN: Warm and dry. No rashes HEAD: Atruamtic, normocephalic. EYES: No scleral icterus. No injection or drainage. ENT: Moist mucous membranes, patent nares, no erythema of oropharynx. NECK: Supple, trachea midline. No JVD or lymphadenopathy. Normal thyroid. CARDIOVASCULAR: Regular rate and rhythm. No murmurs, gallops, or rubs. RESPIRATORY: Breath sounds clear equal bilaterally. No crackles or wheezes. No accessory muscle use. GASTROINTESTINAL: Abdomen soft, non-tender, nondistended, normal active bowel sounds MUSCULOSKELETAL: No cyanosis, or edema. NEURO: CN II-XII grossly intact, no focal deficits, no slurring of speech Results Labs CBC & Chem 7: 10/12/18 08:42 10/12/18 08:42 Labs: Microbiology 10/11/18 23:00 Blood - Peripheral Aerobic Blood Culture - Preliminary No growth in 1 day 10/11/18 23:00 Blood - Peripheral Anaerobic Blood Culture - Preliminary No growth in 1 day 10/11/18 23:15 Blood - Peripheral Aerobic Blood Culture - Preliminary No growth in 1 day 10/11/18 23:15 Blood - Peripheral Anaerobic Blood Culture - Preliminary No growth in 1 day Assessment and Plan Plan Altered mental status Patient admits to heroin and methamphetamine use, denies injection, currently withdrawing Percocet added to stave off full-blown withdrawal and prevent seizures Ativan as needed Rhabdomyolysis Primary diagnosis on admission, also likely from withdrawal Continue IV fluids, monitor CPKs Alkalinize urine if any worsening occurs h/o polysubstance abuse Patient is interested in rehab options Counseled to quit, she wants to quit Depression, anxiety Recently started on venlafaxine, given anxiety I recommend a different antidepressant Venlafaxine held on admission, this may contribute negatively to her withdrawal Will discuss starting something like Zoloft or Prozac with her tomorrow DVT Prophylaxis Lovenox Discharge planning Patient was admitted under [place] act
[2018-10-13] MEDS: LORazepam 1 MG Tablet PO PRN ×2 (00:55→06:46)
[2018-10-13] MEDS: Melatonin 5 MG Tablet PO PRN (00:56)
[2018-10-13] MEDS: Sod Chloride 0.9% Inj 1,000 ML IV.CONT SCH (04:03)
[2018-10-13 07:30] LABS: Hematocrit 33.9 % (35.0-46.0); Hemoglobin 11.6 gm/dL (11.6-15.3); Mean Corpuscular HGB Conc 34.3 % (32.0-36.0); Mean Corpuscular Hemoglobin 29.3 pg (27.0-34.0); Mean Corpuscular Volume 85.5 fL (80.0-100.0); Mean Platelet Volume 8.7 fL (7.0-11.0); Platelet Count 218 th/mm3 (150-450); Red Blood Count 3.96 mil/mm3 (4.00-5.30); Red Cell Distribution Width 16.2 % (11.6-17.2)
[2018-10-13 08:00] LABS: Anion Gap 8 meq/L (5-15); Blood Urea Nitrogen 12 mg/dL (7-18); Calcium 7.4 mg/dL (8.5-10.1); Carbon Dioxide 21.8 meq/L (21.0-32.0); Chloride 111 meq/L (98-107); Glomerular Filtration Rate Greater Than 89 mL/min (>89); Glucose,Random 83 mg/dL (74-106); Potassium 3.6 meq/L (3.5-5.1); Sodium 141 meq/L (136-145)
[2018-10-13] MEDS: Famotidine 20 MG Tablet PO SCH ×2 (08:04→20:05)
[2018-10-13] MEDS: Senna/Docusate Sodium 8.6/50 MG Tablet PO SCH ×2 (08:06→20:05)
[2018-10-13 08:11] LABS: Albumin 2.3 g/dL (3.4-5.0); Calcium-Albumin Corrected 8.8 mg/dL (8.5-10.1); Creatine Kinase 1253 U/L (26-192)
[2018-10-13 08:30] LABS: CKMB Percent 0.5 % (0.0-4.0); Creatine Kinase MB 5.7 ng/mL (0.5-3.6)
[2018-10-13] MEDS ORDERED: ALPRAZolam 0.5 MG Tablet PO ONE (10:40)
[2018-10-13] MEDS: Enoxaparin Inj 30 MG/0.3 ML Syringe SQ SCH (11:38)
--- NOTE | 2018-10-13 15:02 | P.PNIM ---
Subjective Interval history: Patient is having panic attacks today, currently during her visit. She is tearful and unable to get comfortable. She is withdrawing from methamphetamines and heroin. Physical Exam Vital signs: Last Vital Signs Temp 97.5 F L 10/13/18 12:00 Pulse 60 10/13/18 12:00 Resp 17 10/13/18 12:00 BP 132/73 10/13/18 12:00 Pulse Ox 100 10/13/18 12:00 Intake & Output 10/11/18 10/12/18 10/13/18 10/14/18 06:59 06:59 06:59 06:59 Intake Total 1050 / 1050 3796 / 3796 4060 / 4060 1000 / 1000 Output Total 1800 / 1800 Balance 1050 / 1050 3796 / 3796 2260 / 2260 1000 / 1000 Weight 54.431 kg 55.5 kg 59.5 kg Narrative: GENERAL: AAOx3, appears uncomfortable, agitated SKIN: Warm and dry. No rashes HEAD: Atruamtic, normocephalic. EYES: No scleral icterus. No injection or drainage. ENT: Moist mucous membranes, patent nares, no erythema of oropharynx. NECK: Supple, trachea midline. No JVD or lymphadenopathy. Normal thyroid. CARDIOVASCULAR: Regular rate and rhythm. No murmurs, gallops, or rubs. RESPIRATORY: Breath sounds clear equal bilaterally. No crackles or wheezes. No accessory muscle use. GASTROINTESTINAL: Abdomen soft, non-tender, nondistended, normal active bowel sounds MUSCULOSKELETAL: No cyanosis, or edema. NEURO: CN II-XII grossly intact, no focal deficits, no slurring of speech Results Labs CBC & Chem 7: 10/13/18 05:00 10/13/18 05:00 Labs: Microbiology 10/11/18 23:00 Blood - Peripheral Aerobic Blood Culture - Preliminary No growth in 2 days 10/11/18 23:00 Blood - Peripheral Anaerobic Blood Culture - Preliminary No growth in 2 days 10/11/18 23:15 Blood - Peripheral Aerobic Blood Culture - Preliminary No growth in 2 days 10/11/18 23:15 Blood - Peripheral Anaerobic Blood Culture - Preliminary No growth in 2 days Assessment and Plan Plan Altered mental status Patient admits to heroin and methamphetamine use, denies injection, currently withdrawing Percocet added to stave off full-blown withdrawal and prevent seizures Panic attacks Part of her withdrawal syndrome Discontinued Ativan, replaced with Klonopin is baseline and Xanax for panic attacks specifically Consider withdrawal from venlafaxine which was held on admission Begin Zoloft to replace venlafaxine Rhabdomyolysis Primary diagnosis on admission, also likely from withdrawal Continue IV fluids, monitor CPKs Alkalinize urine if any worsening occurs h/o polysubstance abuse Patient is interested in rehab options Counseled to quit, she wants to quit Depression, anxiety Recently started on venlafaxine, given anxiety I recommend a different antidepressant Venlafaxine held on admission, this may contribute negatively to her withdrawal DVT Prophylaxis Lovenox Discharge planning Patient was admitted under act Progress Note: Quality VTE Deep Vein Thrombosis/Pulmonary Embolism Present on Admission: No
[2018-10-13] MEDS: clonazePAM 1 MG Tablet PO SCH (17:12)
[2018-10-13] MEDS: ALPRAZolam 0.5 MG Tablet PO PRN (19:52)
[2018-10-14] MEDS: Melatonin 5 MG Tablet PO PRN ×2 (00:49→21:15)
[2018-10-14] MEDS: clonazePAM 1 MG Tablet PO SCH ×2 (03:43→15:24)
[2018-10-14] MEDS: Sertraline 50 MG Tablet PO SCH (08:25)
[2018-10-14] MEDS: Famotidine 20 MG Tablet PO SCH ×2 (08:26→21:14)
[2018-10-14] MEDS: Senna/Docusate Sodium 8.6/50 MG Tablet PO SCH ×2 (08:27→21:15)
--- NOTE | 2018-10-14 12:20 | ECG ---
Date Performed: 10/13/2018 Time Performed: 12:37:16 PTAGE: 32 years EKG: Sinus rhythm POSSIBLE LEFT ATRIAL ENLARGEMENT POSSIBLE RIGHT VENTRICULAR CONDUCTION DELAY BORDERLINE ECG Since th e PREVIOUS TRACING , no significant change noted PREVIOUS TRACIN08/24/2017 13.35 DOCTOR: Homa Merchant Interpretating Date/Time 10/14/2018 12:16:28
[2018-10-14] MEDS: Enoxaparin Inj 30 MG/0.3 ML Syringe SQ SCH (12:44)
[2018-10-14] MEDS: ALPRAZolam 0.5 MG Tablet PO PRN (13:03)
--- NOTE | 2018-10-14 18:21 | P.PNIM ---
Subjective Interval history: Patient is sitting upright in bed. In no acute distress. Physical Exam Vital signs: Vital Signs 10/13/18 20:00 10/13/18 23:49 10/14/18 03:47 Temperature 97.1 F L 97.7 F 97.7 F Pulse Rate 20 L 82 87 Respiratory Rate 20 16 16 Blood Pressure 151/86 H 116/70 129/65 Pulse Oximetry 98 98 97 10/14/18 08:00 10/14/18 12:00 Temperature 97.4 F L 97.9 F Pulse Rate 83 92 H Respiratory Rate 20 20 Blood Pressure 120/65 157/87 H Pulse Oximetry 99 100 Intake & Output 10/13/18 10/14/18 10/14/18 18:59 06:59 18:59 Intake Total 1840 / 1840 1080 / 1080 Output Total 1800 / 1800 600 / 600 Balance 40 / 40 480 / 480 Weight 61.7 kg Intake: IV 1000 / 1000 NS Inj 1,000 ML @ 150 mls/hr IV 1000 / 1000 .CONT .Q6H40M [facility] Rx#:[id number] Oral 840 / 840 1080 / 1080 Output: Urine 1800 / 1800 600 / 600 Other: # Voids 4 # Bowel Movements 0 0 Narrative: General patient in no acute distress HEENT extraocular movements are intact, clear oropharyngeal mucosa, no JVD Cardiovascular S1-S2 audible, RRR, no murmurs rubs or gallops Respiratory clear to auscultation bilaterally Abdomen soft, nontender, nondistended, normal bowel sounds Extremities no edema 2+ distal pulses in bilateral upper and lower extremities Neuro cranial nerves II through XII intact Results - Labs CBC & Chem 7: 10/13/18 05:00 10/13/18 05:00 Microbiology 10/11/18 23:00 Blood - Peripheral Aerobic Blood Culture - Preliminary No growth in 3 days 10/11/18 23:00 Blood - Peripheral Anaerobic Blood Culture - Preliminary No growth in 3 days 10/11/18 23:15 Blood - Peripheral Aerobic Blood Culture - Preliminary No growth in 3 days 10/11/18 23:15 Blood - Peripheral Anaerobic Blood Culture - Preliminary No growth in 3 days Assessment and Plan - Plan This patient is a 32-year-old female who was brought into the emergency department for a possible drug overdose initially. Patient was found to be restless and noncooperative. Patient has had similar episodes in the past and recent admissions. She was found to have a significantly elevated CPK level over 4000. 1. Acute rhabdomyolysis Initially presented with a CPK level over 4000. U tox was positive for amphetamines, and opiates. She was given IV fluids, CPK level is downtrending currently around 1300. Continue IV fluids for today. Follow-up a.m. CPK level. 2. Panic attacks/depression/anxiety Continue Klonopin Continue Xanax. Patient is currently on Zoloft, patient was previously on venlafaxine which has now been stopped. 3. Polysubstance abuse Patient was counseled on dangers of polysubstance abuse. 5 minutes was spent discussing this with the patient. She is interested in rehab once she is discharged. 4. Acute encephalopathy likely secondary to polysubstance abuse Resolved. Lovenox for DVT prophylaxis. Discharge planning Patient was [place].
[2018-10-15] MEDS: clonazePAM 1 MG Tablet PO SCH ×2 (04:30→15:52)
[2018-10-15] MEDS: ALPRAZolam 0.5 MG Tablet PO PRN ×3 (08:30→22:06)
[2018-10-15] MEDS: Sertraline 50 MG Tablet PO SCH (08:31)
[2018-10-15] MEDS: Famotidine 20 MG Tablet PO SCH ×2 (08:31→22:06)
[2018-10-15] MEDS: Senna/Docusate Sodium 8.6/50 MG Tablet PO SCH ×2 (08:33→22:07)
[2018-10-15 09:15] LABS: CKMB Percent 0.5 % (0.0-4.0); Creatine Kinase MB 1.5 ng/mL (0.5-3.6)
--- NOTE | 2018-10-15 10:51 | P.PNIM ---
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 in [place] since getting insurance back no tremors Physical Exam Vital signs: Last Vital Signs Temp 97.2 F L 10/15/18 08:00 Pulse 82 10/15/18 08:00 Resp 20 10/15/18 08:20 BP 133/91 H 10/15/18 08:00 Pulse Ox 91 L 10/15/18 08:00 Intake & Output 10/13/18 10/14/18 10/15/18 10/16/18 06:59 06:59 06:59 06:59 Intake Total 4060 / 4060 2920 / 2920 1680 / 1680 Output Total 1800 / 1800 2400 / 2400 850 / 850 Balance 2260 / 2260 520 / 520 830 / 830 Weight 59.5 kg 61.7 kg 62.1 kg Narrative: General patient in no acute distress HEENT extraocular movements are intact, clear oropharyngeal mucosa, no JVD Cardiovascular S1-S2 audible, RRR, no murmurs rubs or gallops Respiratory clear to auscultation bilaterally Abdomen soft, nontender, nondistended, normal bowel sounds Extremities no edema 2+ distal pulses in bilateral upper and lower extremities Neuro cranial nerves II through XII intact Results Labs CBC & Chem 7: 10/13/18 05:00 10/13/18 05:00 Labs: Microbiology 10/11/18 23:00 Blood - Peripheral Aerobic Blood Culture - Preliminary No growth in 3 days 10/11/18 23:00 Blood - Peripheral Anaerobic Blood Culture - Preliminary No growth in 3 days 10/11/18 23:15 Blood - Peripheral Aerobic Blood Culture - Preliminary No growth in 3 days 10/11/18 23:15 Blood - Peripheral Anaerobic Blood Culture - Preliminary No growth in 3 days Assessment and Plan Plan Patient is a 32-year-old female who was brought into the emergency department for a possible drug overdose initially found to have a significantly elevated CPK level over 4000. 1. Acute rhabdomyolysis - Initially presented with a CPK level over 4000. U tox was positive for amphetamines, and opiates. -Patient is eating and drinking. At this time we will not continue with IV fluid hydration as CPKs are down trending and patient is able to take in adequate fluid Monitor CPK levels. Patient is downtrending and almost normalized. Patient still reports muscle aches with occasional joint pains. I suspect joint pains may be due to her history of lupus 2. Panic attacks/depression/anxiety Psychiatry consulted and recommendations to be appreciated shortly - Continue regimen as ordered 3. Polysubstance abuse My colleagues previously discussed the importance of abstinence with the patient which I also reinforced on discussions during rounds this morning. Patient again is still interested and rehabilitative services once discharged. Lovenox for DVT prophylaxis. CODE STATUS: Full code Disposition: Medical surgery unit. Awaiting psychiatry recommendations. Likely discharge in 24-48 hours once symptoms of muscle aches resolve and CPK levels normalized. Progress Note: Quality VTE Deep Vein Thrombosis/Pulmonary Embolism Present on Admission: No
--- NOTE | 2018-10-15 11:33 | P.CONPSY ---
Provisional Diagnosis Admission Date: October 11, 2018 12:04 [place] I.: Amphetamines and heroin use disorder, history of panic disorder, PTSD History of Present Illness Service: Medic[facility] Primary Care Provider: UNKNOWN Chief Complaint: AMS History of Present Illness: The patient is a 32-year-old woman, domiciled with her and [id number] in [place], unemployed, she has a [id number] boy, psychiatric history panic disorder, of polysubstance dependence including amphetamines, cannabis, heroine, previous psychiatric admissions, she was hospitalized in [facility] 3 weeks ago with substance related mood disorder, she denies previous suicidal attempts, medical history of seizures and lupus, who was brought to the emergency room for possible drug overdose, patient is restless and not cooperative, denies drug use per recent admission for similar episode, with history of IV drug abuse. Patient was placed under place a Marchman act and sent to the emergency room. Where she was found to have diffuse rash which she states started after she started venlafaxine recently, she was noted to have an elevated white blood cell count and elevated CPK over thousand 4000 so were asked for admission for further evaluation workup. Patient was apparently aggressive and was given Haldol IM. Consulted to psychiatry to address symptoms of anxiety. On psychiatric evaluation patient is calm, cooperative, denies symptomatology of depression, anxiety at the moment , denies suicidal and homicidal ideation, denies visual and auditory hallucinations. Reports that has being on clonazepam here in the hospital and anxiety is under control. She is logical, coherent and relevant. PPhx:panic disorder, of polysubstance dependence including amphetamines, cannabis, heroine, previous psychiatric admissions, she was hospitalized in [facility] 3 weeks ago with substance related mood disorder, she denies previous suicidal attempts, PMhx: Per chart includes, rheumatoid arthritis patient states she is on chronic steroids, also rainouts disease, pancreatitis, PTSD, major depression, narcotic abuse PSXhx: Cholecystectomy SOChx: Born and raised in [place], domiciled in [place] with significant other and 10 months old boy unemployed, admits to tobacco use, admits to meth use, denies alcohol FAMhx:. Lupus, coronary artery disease PMFSH - History History Provided By: Patient - Medical History Medical History: Medical History (Last Reviewed 10/03/18 @ 02:48 by Nani Rios MD) Chronic rheumatic arthritis FHx: cholecystectomy Lupus Major depression PTSD (post-traumatic stress disorder) Pancreatitis Panic attack Raynauds disease - Surgical History Surgical History: Surgical History (Last Updated 10/03/18 @ 02:48 by Nani Rios MD) Status post cholecystectomy - Family History Family History: Family History (Last Updated 10/03/18 @ 02:48 by Nani Rios MD) Other Coronary artery disease - Tobacco History Second Hand Smoke Exposure: Yes Tobacco Use In Past 30 Days: Yes Smoking Status: Current some day smoker Tobacco Type: Cigarettes - Alcohol History How Often Do You Have a Drink Containing Alcohol: Never - Substance Use History Substance History: No History of Abuse - Substance Use Type Amphetamines Status: Active Route Used: By Mouth, Intravenously Reason for Use: Get High - Travel History Recent Travel in the [place] Within the Last 8 Weeks: No Recent Travel Out of the Country Within the Last 8 Weeks: No - Immunization History Tetanus Immunization: Never Vaccinated Hx Influenza Vaccine This Season: No Medications and Allergies Active Medications: Active Medications Acetaminophen (Tylenol) 650 mg PO Q4H PRN PRN Reason: Temp > 100.4 Al Hydroxide/Mg Hydroxide (Milk Of Magnesia Liq) 30 ml PO Q12H PRN PRN Reason: Mild Constipation Alprazolam (Xanax) 0.5 mg PO Q6H PRN PRN Reason: PANIC ATTACK Last Admin: 10/15/18 08:30 Dose: 0.5 mg Bisacodyl (Dulcolax Supp) 10 mg RECTAL DAILY PRN PRN Reason: SEVERE CONSITIPATION Buspirone HCl (Buspar) 10 mg PO BID [facility] Last Admin: 10/15/18 08:32 Dose: 10 mg Clonazepam (Klonopin) 1 mg PO Q12H [facility] Last Admin: 10/15/18 04:30 Dose: 1 mg Enoxaparin Sodium (Lovenox Inj) 30 mg SQ Q24H [facility] Last Admin: 10/14/18 12:44 Dose: Not Given Famotidine (Pepcid) 20 mg PO BID [facility] Last Admin: 10/15/18 08:31 Dose: 20 mg Lactulose (Lactulose Liq) 30 ml PO DAILY PRN PRN Reason: SEVERE CONSITIPATION Melatonin (Melatonin) 5 mg PO HS PRN PRN Reason: INSOMNIA Last Admin: 10/14/18 21:15 Dose: 5 mg Miscellaneous (Pill Splitter) 1 each OTHER UNSCH PRN PRN Reason: SEE LABEL COMMENTS Nicotine (Habitrol 14 Mg Patch.24 Hr) 1 patch T-DERMAL DAILY [facility] Last Admin: 10/15/18 08:31 Dose: 1 patch Ondansetron HCl (Zofran Inj) 4 mg IV.PUSH Q6H PRN PRN Reason: NAUSEA OR VOMITING Oxycodone/Acetaminophen (Percocet 5/325 Mg) 1 tab PO Q6H PRN PRN Reason: AGITATION Last Admin: 10/15/18 08:30 Dose: 1 tab Patch Removal (Remove Old Patch) 1 each T-DERMAL HS [facility] Last Admin: 10/14/18 21:15 Dose: 1 each Senna/Docusate Sodium (Karie-Colace) 1 tab PO BID [facility] Last Admin: 10/15/18 08:33 Dose: Not Given Sennosides (Senokot) 17.2 mg PO Q12H PRN PRN Reason: Moderate Constipation Sertraline HCl (Zoloft) 25 mg PO DAILY [facility] Last Admin: 10/15/18 08:31 Dose: 25 mg Sodium Chloride (Ns Flush) 2 ml IV.FLUSH BID [facility] Last Admin: 10/15/18 08:33 Dose: 2 ml Sodium Chloride (Ns Flush) 2 ml IV.FLUSH PRN PRN PRN Reason: FLUSH AFTER USING IV ACCESS Last Admin: 10/11/18 12:36 Dose: 2 ml Allergies Allergy/AdvReac Type Severity Reaction Status Date / Time Sulfa (Sulfonamide Allergy Intermediate Gastrointestinal Verified 10/11/18 11:30 Antibiotics) Upset Home Medications Medication Instructions Recorded Confirmed Type buspirone 10 mg PO BID 10/11/18 10/11/18 History levetiracetam 500 mg PO BID 10/15/18 10/15/18 History trazodone 100 mg PO DAILY 10/15/18 10/15/18 History Exam Vital signs: Vital Signs 10/14/18 12:00 10/14/18 16:00 10/14/18 20:00 Temperature 97.9 F 97.2 F L 97.2 F L Pulse Rate 92 H 100 H 74 Respiratory Rate 20 20 17 Blood Pressure 157/87 H 139/69 126/75 Pulse Oximetry 100 98 100 10/15/18 00:00 10/15/18 04:00 10/15/18 08:00 Temperature 97.9 F 97.7 F 97.2 F L Pulse Rate 72 83 82 Respiratory Rate 17 17 20 Blood Pressure 108/62 119/78 133/91 H Pulse Oximetry 96 93 L 91 L 10/15/18 08:20 Temperature Pulse Rate Respiratory Rate 20 Blood Pressure Pulse Oximetry Intake & Output 10/14/18 10/15/18 10/15/18 18:59 06:59 18:59 Intake Total 960 / 960 720 / 720 Output Total 850 / 850 Balance 960 / 960 -130 / -130 Weight 62.1 kg Intake: Oral 960 / 960 720 / 720 Output: Urine 850 / 850 Other: # Voids 4 5 Date of Last Bowel Movement 10/15/18 10/15/18 # Bowel Movements 2 1 Mental Status Examination Appearance: Appropriate Consciousness: Alert Orientation: x4 Motor Activity: Normal gait Speech: Unremarkable Language: Adequate Fund of Knowledge: Adequate Attention and Concentration: Adequate Memory: Unremarkable Mood: Appropriate Affect: Appropriate Thought Process & Associations: Intact Thought Content: Appropriate Hallucination Type: None Delusion Type: None Suicidal Ideation: No Suicidal Plan: No Suicidal Intention: No Homicidal Ideation: No Homicidal Plan: No Homicidal Intention: No Insight: Adequate Judgment: Adequate Assessment and Plan - Assessment (1) Adjustment disorder with depressed mood Code(s): F43.21 - Adjustment disorder with depressed mood Status: Acute - Plan Plan: Patient does not present any neuropsychiatric symptoms are required an immediate psychiatric intervention. At this moment denies depression, denies anxiety, denies miguel and psychosis. The patient has a psychiatric history of polysubstance dependence including amphetamines and heroine, previous psychiatric hospitalization, denies suicidal attempts, she is in outpatient care in [facility] on BuSpar, Effexor, hydroxyzine. She does not meet criteria for involuntary psychiatric admission. Can continue clonazepam 1 mg 3 times daily to control anxiety to prevent withdrawal of benzodiazepines. Clonidine 0.1 mg every 8 hours as needed opiate withdrawal. Support, motivational psych education provided. Patient is made aware that she is Marchman acted, she needs to connect with [facility] once medically discharge. Consult appreciated Justification for Continued Inpatient Stay: No admission indicated.
[2018-10-15] MEDS: Enoxaparin Inj 30 MG/0.3 ML Syringe SQ SCH (12:04)
[2018-10-15] MEDS: levETIRAcetam 500 MG Tablet PO SCH (22:06)
[2018-10-15] MEDS: Melatonin 5 MG Tablet PO PRN (22:06)
[2018-10-16] MEDS: clonazePAM 1 MG Tablet PO SCH (03:59)
[2018-10-16] MEDS: ALPRAZolam 0.5 MG Tablet PO PRN ×2 (06:19→12:02)
[2018-10-16 08:34] LABS: Hematocrit 39.3 % (35.0-46.0); Hemoglobin 12.9 gm/dL (11.6-15.3); Mean Corpuscular HGB Conc 32.9 % (32.0-36.0); Mean Corpuscular Hemoglobin 28.8 pg (27.0-34.0); Mean Corpuscular Volume 87.5 fL (80.0-100.0); Mean Platelet Volume 8.9 fL (7.0-11.0); Platelet Count 245 th/mm3 (150-450); Red Blood Count 4.49 mil/mm3 (4.00-5.30); Red Cell Distribution Width 16.1 % (11.6-17.2); White Blood Count 5.7 th/mm3 (4.0-11.0)
[2018-10-16 08:43] LABS: Calcium 8.4 mg/dL (8.5-10.1); Carbon Dioxide 26.8 meq/L (21.0-32.0); Potassium 3.9 meq/L (3.5-5.1)
[2018-10-16] MEDS: Senna/Docusate Sodium 8.6/50 MG Tablet PO SCH (10:15)
[2018-10-16] MEDS: levETIRAcetam 500 MG Tablet PO SCH (10:15)
[2018-10-16] MEDS: Sertraline 50 MG Tablet PO SCH (10:16)
[2018-10-16] MEDS: Famotidine 20 MG Tablet PO SCH (10:16)
[2018-10-16] MEDS: Enoxaparin Inj 30 MG/0.3 ML Syringe SQ SCH (12:02)
[2018-10-16 12:59] VITALS: BP 126/83; PULSE 86; RESP 14; TEMP 98.1; O2SAT 100
--- NOTE | 2018-10-16 13:05 | P.DS ---
DS: Providers Date of admission: 10/11/18 12:04 Primary care physician: UNKNOWN Consults: 10/14/18 18:33 Consult to Psychiatry Routine Consulting Provider: Cleveland Swann Reason for Consultation: panic attacks, anxiety, polysubstance abuse admitted under act Notified:: Service Spoke with:: jeana Date Notified:: 10/14/18 Time Notified:: 19:19 Ordering Provider: NICKY Brief History from admission: 32-year-old female brought to the emergency room for possible drug overdose, patient is restless and not cooperative, denies drug use per recent admission for similar episode, with history of IV drug abuse. Patient was placed under place a act and sent to the emergency room. Where she was found to have diffuse rash which she states started after she started venlafaxine recently, she was noted to have an elevated white blood cell count and elevated CPK over thousand 4000 so were asked for admission for further evaluation workup. Patient is unable to give further history she is somewhat lethargic after IV Ativan and Haldol in the emergency room PMhx: Per chart includes, rheumatoid arthritis patient states she is on chronic steroids, also rainouts disease, pancreatitis, PTSD, major depression, narcotic abuse PSXhx: Cholecystectomy SOChx: Admits to tobacco use, admits to meth use, denies alcohol FAMhx:. Lupus, coronary artery disease DS: Diagnosis Discharge Diagnosis (1) Adjustment disorder with depressed mood: Status: Acute DS: Summary Patient is a 32-year-old female who was brought into the emergency department for a possible drug overdose initially found to have a significantly elevated CPK level over 4000. 1. Acute rhabdomyolysis - Initially presented with a CPK level over 4000. U tox was positive for amphetamines, and opiates. -Patient is eating and drinking. IV fluid discontinued. CPK improved to 118. -Patient is ambulating well. 2. Panic attacks/depression/anxiety Psychiatry consulted - no psychiatry admission recommended. -Will give 5 days of clonazepam 1mg Q12hrs PRN for anxiety. -Patient will follow up with PCP with regards to anxiety management. -I checked [employer] database on 10/16/2018 - shows last Xanax prescription filled on 01/31/2018. 3. Polysubstance abuse Patient counselled by various providers. Patient is motivated to abstain from illicit drug use. On the day of discharge, patient is hemodynamically stable. I went over her labs. We will discharge her home today. Time Spent with Patient Total time spent providing and/or coordinating discharge services: Quality: VTE Deep Vein Thrombosis/Pulmonary Embolism Present on Admission: No Results Labs on day of discharge: Labs from last 24 hours 10/16/18 10/16/18 06:47 06:47 WBC 5.7 RBC 4.49 Hgb 12.9 Hct 39.3 MCV 87.5 MCH 28.8 MCHC 32.9 RDW 16.1 Plt Count 245 MPV 8.9 Sodium 138 Potassium 3.9 Chloride 106 Carbon Dioxide 26.8 Anion Gap 5 BUN 10 Creatinine 0.79 Estimated GFR 85 L Random Glucose 108 H Calcium 8.4 L Total Creatine Kinase 118 Discharge Plan Discharge Disposition Patient Disposition: Discharge Home Discharge Condition Condition: Stable Discharge Order Discharge Orders: Discharge Order (Routine); Ordered 10/16/18 Ordered By: Ninoska Celeste Discharge Details Anticipated Discharge Date: 10/16/18 Physicians Team Primary Care Provider: UNKNOWN, Attending Provider: Ninoska Celeste Other Providers: Cleveland Swann Rxs /Orders / Referrals /Forms Prescriptions: New clonazepam [Klonopin] 1 mg Tablet 1 mg PO Q12H PRN (Reason: Anxiety) Qty: 10 RF: 0 Continue buspirone 10 mg Tablet 10 mg PO BID RF: 0 levetiracetam 250 mg Tablet 500 mg PO BID RF: 0 trazodone 100 mg Tablet 100 mg PO DAILY RF: 0 Referrals: UNKNOWN, [Primary Care Provider] - See Instructions (Primary care follow up within 1-2 weeks. ) Discharge Interventions Interventions: Discharge Planning - Case Management Last Done: 10/15/18 09:10 Status ED Status: Left Department
== END 2018-10-16 15:11 | disposition home or self-care (01) | DRG 557 ==
LOC: NEPC 04:23 → NEDA 04:23 → N04 15:35
PROVIDERS: ADMIT Hospitalist; ATTEND Hospitalist
CPT/HCPCS: 80048; 80053; 80069; 80307; 81001; 82040; 82550; 82552; 82948; 82962; 83605; 84703; 85025; 85027; 86038; 87040; 90760; 90761; 90772; 90782; 90791; 93005; 96360; 96361; 96372; 99285; J1200; J1630; J1650; J2060; J2920; J7030